=== PATIENT | female | born 1950 | race Caucasian/White ===

== ENCOUNTER 2017-07-19 17:16 | Inpatient (IN) | payer MEDICARE, MEDICAID ==
[~2017-07-19] VITALS: Ht 165.1 cm; Wt 112.3 kg
--- NOTE | 2017-07-19 17:35 | EKG ---
[address] [address] Test Date: 2017-07-19 Test Time: 17:32:12 Pat Name: CASE BOONE Department: Room: Gender: F Help Desk Assistant: : [id number] Requested By: JULIAN ALVAREZ Order Number: [id number] Reading MD: Donell Valencia Measurements Intervals [place] Rate: 73 P: 35 GA: 176 QRS: 10 QRSD: 78 T: 53 QT: 386 QTc: 429 Interpretive Statements SINUS RHYTHM NORMAL ECG RI6.01 No previous ECG available for comparison Electronically Signed On 08-04-2017 13:23:41 CDT by Donell Valencia
[2017-07-19 19:27] LABS: BASO % 1 % (0-3); EOS # 0.1 x10^3/uL (0.0-0.7); EOS % 2 % (0-3); HEMATOCRIT 42.3 % (36.0-47.0); LYMPH # 1.9 x10^3/uL (1.0-4.8); LYMPH % 22 % (24-48); MEAN CORPUSCULAR HEMOGLOBIN 28 pg (25-35); MEAN CORPUSCULAR HGB CONC 33 g/dL (31-37); MEAN CORPUSCULAR VOLUME 86 fL (79-100); MONO # 0.9 x10^3/uL (0.0-1.1); MONO % 10 % (0-9); NEUT # 5.9 x10^3uL (1.8-7.7); NEUT % 67 % (31-73); PLATELET COUNT 311 x10^3/uL (140-400); RED BLOOD COUNT 4.95 x10^6/uL (3.50-5.40); WHITE BLOOD COUNT 8.9 x10^3/uL (4.0-11.0)
[2017-07-19 19:33] LABS: ALBUMIN 3.5 g/dL (3.4-5.0); ALBUMIN/GLOBULIN RATIO 0.8 (1.0-1.7); CALCIUM 9.2 mg/dL (8.5-10.1); CREATININE 0.9 mg/dL (0.6-1.0); GFR 62.6; MAGNESIUM 2.1 mg/dL (1.8-2.4); POTASSIUM 4.6 mmol/L (3.5-5.1); TOTAL BILIRUBIN 0.2 mg/dL (0.2-1.0); TOTAL PROTEIN 7.9 g/dL (6.4-8.2)
[2017-07-19 20:44] LABS: BACTERIA,URINE 0 /HPF (0-FEW); BILIRUBIN,URINE NEG (NEG); CLARITY,URINE CLEAR; COLOR,URINE YELLOW; GLUCOSE,URINE NEG (NEG); NITRITE,URINE NEG (NEG); RBC,URINE 0 /HPF (0-2); SQUAMOUS EPITHELIAL CELL,UR MOD /LPF; UROBILINOGEN,URINE 0.2 mg/dL (0.2 mg/dL)
[2017-07-19 20:45] LABS: HYALINE CASTS, URINE OCC /HPF
[2017-07-19] MEDS ORDERED: LORazepam 2 MG/ML VIAL IV ONE (21:00)
[2017-07-19] MEDS ORDERED: LORazepam 1 MG TABLET PO ONE (21:00)
[2017-07-19] MEDS ORDERED: ALPR0.254 PO (21:04)
[2017-07-19] MEDS ORDERED: DONE10TA7 PO (21:04)
[2017-07-19] MEDS ORDERED: MEMA28CA PO (21:04)
[2017-07-19] MEDS ORDERED: LORazepam 1 MG TABLET ONE (21:04)
[2017-07-19] MEDS ORDERED: METF500T4 PO (21:04)
[2017-07-19] MEDS ORDERED: MAGN400O7 PO (21:04)
[2017-07-19] MEDS ORDERED: FURO20TA3 PO (21:04)
[2017-07-19] MEDS ORDERED: GLIP5TAB10 PO (21:04)
[2017-07-19] MEDS ORDERED: CITA20TA5 PO (21:04)
[2017-07-19] MEDS ORDERED: AMLO10TA2 PO (21:04)
[2017-07-19] MEDS ORDERED: PROP15DR40 OS (21:04)
[2017-07-19] MEDS ORDERED: DORZ10DR21 OU (21:04)
[2017-07-19] MEDS ORDERED: BISA10SU2 RC (21:04)
[2017-07-19] MEDS ORDERED: DEXT237L PO (21:04)
[2017-07-19] MEDS ORDERED: QUET25TA5 PO (21:04)
[2017-07-19] MEDS ORDERED: INSU100I27 SQ (21:04)
[2017-07-19] MEDS ORDERED: MIRT15TA3 PO ×2 (21:04)
[2017-07-19] MEDS ORDERED: PRED5DRO16 OD (21:04)
[2017-07-19] MEDS ORDERED: HYDR-2758 PO ×2 (21:04)
[2017-07-19] MEDS ORDERED: CLON-276 PO (21:04)
[2017-07-19] MEDS ORDERED: DOCU100C28 PO (21:04)
[2017-07-19] MEDS ORDERED: BUSP10TA PO (21:04)
[2017-07-19] MEDS ORDERED: SIMV10TA3 PO (21:04)
[2017-07-19] MEDS ORDERED: ASPI-612 PO (21:04)
[2017-07-19] MEDS ORDERED: LISI40TA PO (21:04)
[2017-07-19] MEDS ORDERED: MAGNESIUM HYDROXIDE 2,400 MG/30 ML ORAL.SUSP. PO PRN (21:45)
[2017-07-19] MEDS ORDERED: METHYL SALICYLATE/MENTHOL TOPICAL OINTMENT 29GM TUBE. TP PRN (21:45)
[2017-07-19] MEDS ORDERED: MAG HYDROX/AL HYDROX/SIMETH 30 ML ORAL.SUSP PO PRN (21:45)
[2017-07-19] MEDS ORDERED: ALPRAZolam 0.25 MG TABLET PO PRN (22:30)
[2017-07-19 23:00] VITALS: BP 183/101
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
[2017-07-20 05:27] VITALS: BP 152/92
[2017-07-20] MEDS ORDERED: DEXTROMETHORPHAN PO PRN (07:15)
[2017-07-20] MEDS ORDERED: MAGNESIUM HYDROXIDE 2,400 MG/30 ML ORAL.SUSP. PO PRN ×2 (07:15→17:15)
[2017-07-20] MEDS ORDERED: DOXYLAMINE PO PRN (07:15)
[2017-07-20] MEDS ORDERED: [UNRECOGNIZED DRUG - OTHER] PO PRN (07:15)
[2017-07-20] MEDS ORDERED: DOCUSATE SODIUM 100 MG CAPSULE PO PRN (07:15)
[2017-07-20] MEDS ORDERED: BISACODYL 10 MG SUPP.RECT RC PRN (07:15)
[2017-07-20] MEDS: INSULIN ASPART 300 UNITS/3 ML INSULN.PEN SQ SCH ×3 (07:30→17:20)
[2017-07-20] MEDS ORDERED: DEXTROSE 50% 25 GM / 50ML DISP.SYRIN. IV PRN (07:30)
[2017-07-20] MEDS: metFORMIN 500 MG TABLET PO SCH ×2 (08:46→17:32)
[2017-07-20] MEDS: busPIRone 10 MG TABLET. PO SCH ×2 (08:46→19:39)
[2017-07-20] MEDS: cloNIDine HCL 0.2 MG TABLET PO SCH ×2 (08:47→19:39)
[2017-07-20] MEDS: LISINOPRIL 20 MG TABLET PO SCH (08:47)
[2017-07-20] MEDS: ASPIRIN ENTERIC COATED 81 MG TABLET.DR. PO SCH (08:47)
[2017-07-20] MEDS: MEMANTINE 10 MG TABLET. PO SCH ×2 (08:47→19:39)
[2017-07-20] MEDS: DONEPEZIL HCL 10 MG TABLET PO SCH (08:47)
[2017-07-20] MEDS: glipiZIDE 5 MG TABLET PO SCH ×2 (08:47→19:39)
[2017-07-20] MEDS: CITALOPRAM 20 MG TABLET. PO SCH (08:47)
[2017-07-20] MEDS: FUROSEMIDE 20 MG TABLET PO SCH (08:48)
[2017-07-20] MEDS: prednisoLONE ACETATE 1% OPHTH SUSPENSION 5ML BOTTLE. OD SCH (08:48)
[2017-07-20] MEDS: amLODIPine BESYLATE 10 MG TABLET PO SCH (08:48)
[2017-07-20] MEDS: DORZOLAMIDE/TIMOLOL 2%/0.5% OPHTH SOLUTION 10ML BOTTLE. OU SCH ×2 (08:48→19:40)
[2017-07-20 14:21] LABS: THYROID STIM HORMONE (TSH) 0.778 uIU/mL (0.358-3.740)
[2017-07-20 15:27] VITALS: BP 143/75
[2017-07-20] MEDS ORDERED: MAG HYDROX/AL HYDROX/SIMETH 30 ML ORAL.SUSP PO PRN (17:15)
[2017-07-20] MEDS ORDERED: METHYL SALICYLATE/MENTHOL TOPICAL OINTMENT 29GM TUBE. TP PRN (17:15)
[2017-07-20] MEDS ORDERED: ACETAMINOPHEN 325 MG TABLET PO PRN (17:15)
[2017-07-20 18:07] LABS: HEMOGLOBIN A1C 6.1 % (4.8-5.6)
[2017-07-20] MEDS: MIRTAZAPINE 15 MG TABLET PO SCH (19:39)
--- NOTE | 2017-07-20 19:56 | PDOC ---
Exam Note: Barney Note: Please also refer to the separate dictated note~for this date of service dictated separately.~Patient seen individually. Discussed the patient with Nursing staff reviewed the chart.~Reviewed interim history and current functioning. Reviewed vital signs,~Labs/ Radiology~and current medications noted below. Continue current treatment with the changes noted in the dictated addendum note Assessment: Vital Signs: Vital Signs Date Time Temp Pulse Resp B/P (MAP) Pulse Ox O2 Delivery O2 Flow Rate FiO2 07/20/17 19:39 80 143/75 07/20/17 15:27 98.7 16 97 Room Air Labs: Laboratory Tests Test 07/20/17 07:46 07/20/17 11:35 07/20/17 16:20 07/20/17 19:25 Glucose (Fingerstick) 143 mg/dL (70-99) H 115 mg/dL (70-99) H 126 mg/dL (70-99) H 221 mg/dL (70-99) H Current Medications: Meds: Current Medications Lorazepam (Ativan) 0.5 mg 1X ONCE IV ; Start 07/19/17 at 21:00; Stop 07/19/17 at 21:00; Status DC Lorazepam (Ativan) 1 mg 1X ONCE PO Last administered on 07/19/17at 21:06; Start 07/19/17 at 21:00; Stop 07/19/17 at 21:04; Status DC Multi-Ingredient Ointment (Analgesic [place]) 1 geraldine PRN QID PRN TP MUSCLE PAIN; Start 07/19/17 at 21:45 Al Hydroxide/Mg Hydroxide (Mylanta Plus Xs) 15 ml PRN AFTMEALHC PRN PO DYSPEPSIA; Start 07/19/17 at 21:45 Magnesium Hydroxide (Milk Of Magnesia) 2,400 mg PRN QHS PRN PO CONSTIPATION; Start 07/19/17 at 21:45 Olanzapine (ZyPREXA ZYDIS) 2.5 mg PRN Q2HR PRN PO PSYCHOSIS; Start 07/19/17 at 22:00 Alprazolam (Xanax) 0.25 mg PRN BID PRN PO ANXIETY / AGITATION; Start 07/19/17 at 22:30 Buspirone HCl (Buspar) 10 mg BID PO Last administered on 07/20/17at 19:39; Start 07/20/17 at 09:00 Citalopram Hydrobromide (CeleXA) 20 mg DAILY PO Last administered on 07/20/17at 08:47; Start 07/20/17 at 09:00 Donepezil HCl (Aricept) 10 mg DAILY PO Last administered on 07/20/17at 08:47; Start 07/20/17 at 09:00 Mirtazapine (Remeron) 15 mg QHS PO Last administered on 07/20/17 19:39; Start 07/20/17 at 21:00 Memantine (Namenda) 10 mg BID PO Last administered on 07/20/17 19:39; Start 07/20/17 at 09:00 Amlodipine Besylate (Norvasc) 10 mg DAILY PO Last administered on 07/20/17 08: 48; Start 07/20/17 at 09:00 Aspirin (Aspirin Enteric Coated) 81 mg DAILY PO Last administered on 07/20/17 08:47; Start 07/20/17 at 09:00 Bisacodyl (Dulcolax Supp) 10 mg PRN ALT PRN RC CONSTIPATION; Start 07/20/17 at 07:15 Clonidine HCl (Catapres) 0.2 mg BID PO Last administered on 07/20/17 19:39; Start 07/20/17 at 09:00 Docusate Sodium (Colace) 100 mg PRN DAILY PRN PO CONSTIPATION; Start 07/20/17 at 07:15 Dorzolamide/ Timolol (Cosopt) 1 drop BID OU Last administered on 07/20/17 19:40 ; Start 07/20/17 at 09:00 Furosemide (Lasix) 20 mg DAILY PO Last administered on 07/20/17at 08:48; Start at 09:00 Glipizide (Glucotrol) 5 mg BID PO Last administered on 07/20/17 19:39; Start at 09:00 Acetaminophen/ Hydrocodone Bitart (Lortab 5/325) 1 tab PRN BID PRN PO PAIN; Start 07/20/17 at 07:15 Insulin Detemir (Levemir) 10 units HS SQ ; Start 07/20/17 at 21:00 Magnesium Hydroxide (Milk Of Magnesia) 400 mg PRN DAILY PRN PO CONSTIPATION; Start 07/20/17 at 07:15 Metformin HCl (Glucophage) 500 mg BIDWMEALS PO Last administered on 07/20/17at 17 :32; Start 07/20/17 at 08:00 Prednisolone Acetate (Pred Forte) 1 drop DAILY OD Last administered on at 08:48; Start 07/20/17 at 09:00 Simvastatin (Zocor) 10 mg QHS PO Last administered on 07/20/17at 19:38; Start 07/20/17 at 21:00 Non-Formulary Medication 10 ml PRN Q6HRS PRN PO COUGH; Start 07/20/17 at 07:15; Stop 07/20/17 at 08:02; Status DC Lisinopril (Prinivil) 40 mg DAILY PO Last administered on 07/20/17at 08:47; Start 07/20/17 at 09:00 Insulin Aspart (NovoLOG) 0-5 UNITS TIDBFRMEAL SQ ; Start 07/20/17 at 07:30 Dextrose 12.5 gm PRN Q15MIN PRN IV SEE COMMENTS; Start 07/20/17 at 07:30 Lorazepam (Ativan) 1 mg STK-MED ONCE .ROUTE ; Start 07/19/17 at 21:04; Stop 07/20 at 08:44; Status DC Acetaminophen (Tylenol) 650 mg PRN Q6HRS PRN PO PAIN / TEMP; Start 07/20/17 at 17:15; Stop 07/20/17 at 17:15; Status DC Multi-Ingredient Ointment (Analgesic [place]) 1 geraldine PRN QID PRN TP MUSCLE PAIN; Start 07/20/17 at 17:15; Stop 07/20/17 at 17:15; Status DC Al Hydroxide/Mg Hydroxide (Mylanta Plus Xs) 15 ml PRN AFTMEALHC PRN PO DYSPEPSIA; Start 07/20/17 at 17:15; Stop 07/20/17 at 17:15; Status DC Magnesium Hydroxide (Milk Of Magnesia) 2,400 mg PRN QHS PRN PO CONSTIPATION; Start 07/20/17 at 17:15; Stop 07/20/17 at 17:15; Status DC Trazodone HCl (Desyrel) 50 mg QHS PO Last administered on 07/20/17at 19:38; Start 07/20/17 at 21:00 Trazodone HCl (Desyrel) 50 mg PRN QHS PRN PO INSOMNIA; Start 07/20/17 at 21:00 Vitamin D (Vitamin D3) 50,000 unit WEEKLY PO ; Start 07/20/17 at 20:00 Atorvastatin Calcium (Lipitor) 20 mg QHS PO ; Start 07/20/17 at 21:00; Stop at 21:00; Status DC Active Scripts Active Reported Seroquel (Quetiapine Fumarate) 25 Mg Tablet 12.5 Mg PO DAILY Robitussin Nighttime Cough Dm (Dextromethorphan Hb/Doxylamine) 237 Ml Liquid 10 Ml PO PRN Q6HRS PRN Levemir Flextouch (Insulin Detemir) 100 Unit/1 Ml Insuln.pen 10 Unit SQ HS Cosopt Eye Drops (Dorzolamide Hcl/Timolol Maleat) 10 Ml Drops 1 Ml OU BID Prednisolone Acetate 5 Ml Drops.susp 1 Ml OD DAILY Alprazolam 0.25 Mg Tablet 0.25 Mg PO BID PRN Systane 0.3-0.4% Eye Drops (Propylene Glycol/Peg 400) 15 Ml Drops 15 Ml OS PRN Hydrocodone-Apap 5-325 (Hydrocodone Bit/Acetaminophen) 1 Each Tablet 2 Tab PO PRN Q6HRS PRN Docusate Sodium 100 Mg Capsule 100 Mg PO PRN DAILY PRN Hydrocodone-Apap 5-325 (Hydrocodone Bit/Acetaminophen) 1 Each Tablet 1 Tab PO BID PRN Milk Of Magnesia (Magnesium Hydroxide) 400 Mg/5 Ml Oral.susp 400 Mg PO PRN DAILY PRN Bisacodyl 10 Mg Supp.rect 10 Mg RC PRN ALT PRN Simvastatin 10 Mg Tablet 10 Mg PO DAILY Namenda Xr (Memantine Hcl) 28 Mg Cap.spr.24 28 Mg PO DAILY Mirtazapine 15 Mg Tablet 7.5 Mg PO Mirtazapine 15 Mg Tablet 1 Tab PO QHS Metformin Hcl 500 Mg Tablet 500 Mg PO BIDWMEALS Lisinopril 40 Mg Tablet 40 Mg PO DAILY Glipizide 5 Mg Tablet 5 Mg PO BID Furosemide 20 Mg Tablet 20 Mg PO DAILY Donepezil Hcl 10 Mg Tablet 10 Mg PO DAILY Clonidine Hcl 0.2 Mg Tablet 0.2 Mg PO BID Citalopram Hbr (Citalopram Hydrobromide) 20 Mg Tablet 20 Mg PO DAILY Buspirone Hcl 10 Mg Tablet 10 Mg PO BID Aspirin Ec (Aspirin) 81 Mg Tablet. 81 Mg PO DAILY Amlodipine Besylate 10 Mg Tablet 10 Mg PO DAILY I have reviewed the current psychotropics carefully including drug interactions. Risk benefit ratio favors no change other than as noted in my dictated progress note. Diagnosis: Problems: (1) MDD (major depressive disorder) (2) Dementia with behavioral disturbance HECTOR PLEITEZ MD Jul 20, 2017 19:56
[2017-07-20] MEDS: CHOLECALCIFEROL (VITAMIN D3) 50,000 UNIT CAPSULE PO SCH (20:22)
[2017-07-20] MEDS: INSULIN DETEMIR 300 UNITS/3 ML INSULN.PEN. SQ SCH (20:25)
[2017-07-20] MEDS ORDERED: ATORVASTATIN CALCIUM 20 MG TABLET PO SCH (21:00)
[2017-07-20] MEDS ORDERED: traZODone 50 MG TABLET. PO PRN (21:00)
[2017-07-20] MEDS ORDERED: SIMVASTATIN 10 MG TABLET PO SCH (21:00)
[2017-07-20] MEDS ORDERED: traZODone 50 MG TABLET. PO SCH (21:00)
[2017-07-20 21:08] LABS: T3 TOTAL 134 ng/dL (71-180); THYROXINE 7.8 ug/dL (4.5-12.0)
[2017-07-21 06:35] VITALS: BP 152/80
[2017-07-21] MEDS: INSULIN ASPART 300 UNITS/3 ML INSULN.PEN SQ SCH ×3 (07:52→17:28)
[2017-07-21] MEDS: ASPIRIN ENTERIC COATED 81 MG TABLET.DR. PO SCH (07:53)
[2017-07-21] MEDS: FUROSEMIDE 20 MG TABLET PO SCH (07:54)
[2017-07-21] MEDS: MEMANTINE 10 MG TABLET. PO SCH ×2 (07:54→19:56)
[2017-07-21] MEDS: DONEPEZIL HCL 10 MG TABLET PO SCH (07:54)
[2017-07-21] MEDS: metFORMIN 500 MG TABLET PO SCH ×2 (07:54→17:26)
[2017-07-21] MEDS: amLODIPine BESYLATE 10 MG TABLET PO SCH (07:54)
[2017-07-21] MEDS: glipiZIDE 5 MG TABLET PO SCH ×2 (07:54→19:54)
[2017-07-21] MEDS: cloNIDine HCL 0.2 MG TABLET PO SCH ×2 (07:54→19:56)
[2017-07-21] MEDS: CITALOPRAM 20 MG TABLET. PO SCH (07:55)
[2017-07-21] MEDS: prednisoLONE ACETATE 1% OPHTH SUSPENSION 5ML BOTTLE. OD SCH (07:55)
[2017-07-21] MEDS: busPIRone 10 MG TABLET. PO SCH ×2 (07:55→19:54)
[2017-07-21] MEDS: LISINOPRIL 20 MG TABLET PO SCH (07:55)
[2017-07-21] MEDS: DORZOLAMIDE/TIMOLOL 2%/0.5% OPHTH SOLUTION 10ML BOTTLE. OU SCH ×2 (07:55→20:02)
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
[2017-07-21 15:55] VITALS: BP 161/89
[2017-07-21] MEDS: MIRTAZAPINE 15 MG TABLET PO SCH (19:55)
[2017-07-21] MEDS: ATORVASTATIN CALCIUM 10 MG TABLET. PO SCH (19:57)
[2017-07-21] MEDS: traZODone 100 MG TABLET. PO SCH (19:58)
[2017-07-21] MEDS: INSULIN DETEMIR 300 UNITS/3 ML INSULN.PEN. SQ SCH (20:00)
[2017-07-21] MEDS ORDERED: MIRTAZAPINE 15 MG TABLET PO SCH (21:00)
--- NOTE | 2017-07-21 22:15 | PDOC ---
Exam Note: Barney Note: Please also refer to the separate dictated note~for this date of service dictated separately.~Patient seen individually. Discussed the patient with Nursing staff reviewed the chart.~Reviewed interim history and current functioning. Reviewed vital signs,~Labs/ Radiology~and current medications noted below. Continue current treatment with the changes noted in the dictated addendum note Assessment: Vital Signs: Vital Signs Date Time Temp Pulse Resp B/P (MAP) Pulse Ox O2 Delivery O2 Flow Rate FiO2 07/21/17 19:56 77 161/89 07/21/17 15:55 98.5 18 Room Air 95.0 07/21/17 06:35 92 I&O Intake and Output 07/21/17 07:00 Intake Total 480 ml Balance 480 ml Intake Oral 480 ml Labs: Laboratory Tests Test 07/21/17 07:31 07/21/17 11:26 07/21/17 16:25 07/21/17 19:07 Glucose (Fingerstick) 129 mg/dL (70-99) H 144 mg/dL (70-99) H 195 mg/dL (70-99) H 176 mg/dL (70-99) H Current Medications: Meds: Current Medications Lorazepam (Ativan) 0.5 mg 1X ONCE IV ; Start 07/19/17 at 21:00; Stop 07/19/17 at 21:00; Status DC Lorazepam (Ativan) 1 mg 1X ONCE PO Last administered on 07/19/17at 21:06; Start 07/19/17 at 21:00; Stop 07/19/17 at 21:04; Status DC Multi-Ingredient Ointment (Analgesic [place]) 1 geraldine PRN QID PRN TP MUSCLE PAIN; Start 07/19/17 at 21:45 Al Hydroxide/Mg Hydroxide (Mylanta Plus Xs) 15 ml PRN AFTMEALHC PRN PO DYSPEPSIA; Start 07/19/17 at 21:45 Magnesium Hydroxide (Milk Of Magnesia) 2,400 mg PRN QHS PRN PO CONSTIPATION; Start 07/19/17 at 21:45 Olanzapine (ZyPREXA ZYDIS) 2.5 mg PRN Q2HR PRN PO PSYCHOSIS; Start 07/19/17 at 22:00 Alprazolam (Xanax) 0.25 mg PRN BID PRN PO ANXIETY / AGITATION; Start 07/19/17 at 22:30 Buspirone HCl (Buspar) 10 mg BID PO Last administered on 07/21/17 19:54; Start 07/20/17 at 09:00 Citalopram Hydrobromide (CeleXA) 20 mg DAILY PO Last administered on 07/21/17 07:55; Start 07/20/17 at 09:00 Donepezil HCl (Aricept) 10 mg DAILY PO Last administered on 07/21/17 07:54; Start 07/20/17 at 09:00 Mirtazapine (Remeron) 15 mg QHS PO Last administered on 07/21/17 19:55; Start 07/20/17 at 21:00 Memantine (Namenda) 10 mg BID PO Last administered on 07/21/17 19:56; Start 07/20/17 at 09:00 Amlodipine Besylate (Norvasc) 10 mg DAILY PO Last administered on 07/21/17 07: 54; Start 07/20/17 at 09:00 Aspirin (Aspirin Enteric Coated) 81 mg DAILY PO Last administered on 07/21/17 07:53; Start 07/20/17 at 09:00 Bisacodyl (Dulcolax Supp) 10 mg PRN ALT PRN RC CONSTIPATION; Start 07/20/17 at 07:15 Clonidine HCl (Catapres) 0.2 mg BID PO Last administered on 07/21/17 19:56; Start 07/20/17 at 09:00 Docusate Sodium (Colace) 100 mg PRN DAILY PRN PO CONSTIPATION; Start 07/20/17 at 07:15 Dorzolamide/ Timolol (Cosopt) 1 drop BID OU Last administered on 07/21/17at 20:02 ; Start 07/20/17 at 09:00 Furosemide (Lasix) 20 mg DAILY PO Last administered on 07/21/17 07:54; Start at 09:00 Glipizide (Glucotrol) 5 mg BID PO Last administered on 07/21/17 19:54; Start at 09:00 Acetaminophen/ Hydrocodone Bitart (Lortab 5/325) 1 tab PRN BID PRN PO PAIN; Start 07/20/17 at 07:15 Insulin Detemir (Levemir) 10 units HS SQ Last administered on 07/21/17at 20:00; Start 07/20/17 at 21:00 Magnesium Hydroxide (Milk Of Magnesia) 400 mg PRN DAILY PRN PO CONSTIPATION; Start 07/20/17 at 07:15; Stop 07/21/17 at 02:10; Status DC Metformin HCl (Glucophage) 500 mg BIDWMEALS PO Last administered on 07/21/17at 17 :26; Start 07/20/17 at 08:00 Prednisolone Acetate (Pred Forte) 1 drop DAILY OD Last administered on at 07:55; Start 07/20/17 at 09:00 Simvastatin (Zocor) 10 mg QHS PO Last administered on 07/20/17at 19:38; Start 07/20/17 at 21:00; Stop 07/21/17 at 17:31; Status DC Non-Formulary Medication 10 ml PRN Q6HRS PRN PO COUGH; Start 07/20/17 at 07:15; Stop 07/20/17 at 08:02; Status DC Lisinopril (Prinivil) 40 mg DAILY PO Last administered on 07/21/17at 07:55; Start 07/20/17 at 09:00 Insulin Aspart (NovoLOG) 0-5 UNITS TIDBFRMEAL SQ Last administered on 07/21/17at 17:28; Start 07/20/17 at 07:30 Dextrose 12.5 gm PRN Q15MIN PRN IV SEE COMMENTS; Start 07/20/17 at 07:30 Lorazepam (Ativan) 1 mg STK-MED ONCE .ROUTE ; Start 07/19/17 at 21:04; Stop 07/20 at 08:44; Status DC Acetaminophen (Tylenol) 650 mg PRN Q6HRS PRN PO PAIN / TEMP; Start 07/20/17 at 17:15; Stop 07/20/17 at 17:15; Status DC Multi-Ingredient Ointment (Analgesic [place]) 1 geraldine PRN QID PRN TP MUSCLE PAIN; Start 07/20/17 at 17:15; Stop 07/20/17 at 17:15; Status DC Al Hydroxide/Mg Hydroxide (Mylanta Plus Xs) 15 ml PRN AFTMEALHC PRN PO DYSPEPSIA; Start 07/20/17 at 17:15; Stop 07/20/17 at 17:15; Status DC Magnesium Hydroxide (Milk Of Magnesia) 2,400 mg PRN QHS PRN PO CONSTIPATION; Start 07/20/17 at 17:15; Stop 07/20/17 at 17:15; Status DC Trazodone HCl (Desyrel) 50 mg QHS PO Last administered on 07/20/17at 19:38; Start 07/20/17 at 21:00; Stop 07/21/17 at 18:48; Status DC Trazodone HCl (Desyrel) 50 mg PRN QHS PRN PO INSOMNIA Last administered on at 00:47; Start 07/20/17 at 21:00; Stop 07/21/17 at 18:48; Status DC Vitamin D (Vitamin D3) 50,000 unit WEEKLY PO Last administered on 07/20/17at 20: 22; Start 07/20/17 at 20:00 Atorvastatin Calcium (Lipitor) 20 mg QHS PO ; Start 07/20/17 at 21:00; Stop at 21:00; Status DC Atorvastatin Calcium (Lipitor) 10 mg QHS PO Last administered on 07/21/17at 19:57 ; Start 07/21/17 at 21:00 Trazodone HCl (Desyrel) 100 mg PRN QHS PRN PO INSOMNIA; Start 07/21/17 at 19:00 Trazodone HCl (Desyrel) 100 mg QHS PO Last administered on 07/21/17at 19:58; Start 07/21/17 at 21:00 Mirtazapine (Remeron) 15 mg QHS PO ; Start 07/21/17 at 21:00; Stop 07/21/17 at 21: 00; Status DC Active Scripts Active Reported Seroquel (Quetiapine Fumarate) 25 Mg Tablet 12.5 Mg PO DAILY Robitussin Nighttime Cough Dm (Dextromethorphan Hb/Doxylamine) 237 Ml Liquid 10 Ml PO PRN Q6HRS PRN Levemir Flextouch (Insulin Detemir) 100 Unit/1 Ml Insuln.pen 10 Unit SQ HS Cosopt Eye Drops (Dorzolamide Hcl/Timolol Maleat) 10 Ml Drops 1 Ml OU BID Prednisolone Acetate 5 Ml Drops.susp 1 Ml OD DAILY Alprazolam 0.25 Mg Tablet 0.25 Mg PO BID PRN Systane 0.3-0.4% Eye Drops (Propylene Glycol/Peg 400) 15 Ml Drops 15 Ml OS PRN Hydrocodone-Apap 5-325 (Hydrocodone Bit/Acetaminophen) 1 Each Tablet 2 Tab PO PRN Q6HRS PRN Docusate Sodium 100 Mg Capsule 100 Mg PO PRN DAILY PRN Hydrocodone-Apap 5-325 (Hydrocodone Bit/Acetaminophen) 1 Each Tablet 1 Tab PO BID PRN Milk Of Magnesia (Magnesium Hydroxide) 400 Mg/5 Ml Oral.susp 2,400 Mg PO PRN DAILY PRN Bisacodyl 10 Mg Supp.rect 10 Mg RC PRN ALT PRN Simvastatin 10 Mg Tablet 10 Mg PO DAILY Namenda Xr (Memantine Hcl) 28 Mg Cap.spr.24 28 Mg PO DAILY Mirtazapine 15 Mg Tablet 7.5 Mg PO Mirtazapine 15 Mg Tablet 1 Tab PO QHS Metformin Hcl 500 Mg Tablet 500 Mg PO BIDWMEALS Lisinopril 40 Mg Tablet 40 Mg PO DAILY Glipizide 5 Mg Tablet 5 Mg PO BID Furosemide 20 Mg Tablet 20 Mg PO DAILY Donepezil Hcl 10 Mg Tablet 10 Mg PO DAILY Clonidine Hcl 0.2 Mg Tablet 0.2 Mg PO BID Citalopram Hbr (Citalopram Hydrobromide) 20 Mg Tablet 20 Mg PO DAILY Buspirone Hcl 10 Mg Tablet 10 Mg PO BID Aspirin Ec (Aspirin) 81 Mg Tablet. 81 Mg PO DAILY Amlodipine Besylate 10 Mg Tablet 10 Mg PO DAILY I have reviewed the current psychotropics carefully including drug interactions. Risk benefit ratio favors no change other than as noted in my dictated progress note. Diagnosis: Problems: (1) MDD (major depressive disorder) (2) Dementia with behavioral disturbance (3) Anxiety disorder (4) Impulse control disorder (5) Psychotic depression (6) Mild cognitive impairment HECTOR PLEITEZ MD Jul 21, 2017 22:15
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
[2017-07-22] MEDS: traZODone 100 MG TABLET. PO PRN (02:00)
[2017-07-22 06:24] VITALS: BP 163/73
[2017-07-22] MEDS: INSULIN ASPART 300 UNITS/3 ML INSULN.PEN SQ SCH ×3 (07:41→17:15)
[2017-07-22] MEDS: metFORMIN 500 MG TABLET PO SCH ×2 (08:03→17:14)
[2017-07-22] MEDS: DONEPEZIL HCL 10 MG TABLET PO SCH (08:04)
[2017-07-22] MEDS: DORZOLAMIDE/TIMOLOL 2%/0.5% OPHTH SOLUTION 10ML BOTTLE. OU SCH ×2 (08:04→19:33)
[2017-07-22] MEDS: ASPIRIN ENTERIC COATED 81 MG TABLET.DR. PO SCH (08:04)
[2017-07-22] MEDS: prednisoLONE ACETATE 1% OPHTH SUSPENSION 5ML BOTTLE. OD SCH (08:04)
[2017-07-22] MEDS: busPIRone 10 MG TABLET. PO SCH ×3 (08:05→21:00)
[2017-07-22] MEDS: cloNIDine HCL 0.2 MG TABLET PO SCH ×3 (08:05→21:00)
[2017-07-22] MEDS: FUROSEMIDE 20 MG TABLET PO SCH (08:06)
[2017-07-22] MEDS: glipiZIDE 5 MG TABLET PO SCH ×3 (08:06→21:00)
[2017-07-22] MEDS: MEMANTINE 10 MG TABLET. PO SCH ×3 (08:06→21:00)
[2017-07-22] MEDS: CITALOPRAM 20 MG TABLET. PO SCH (08:06)
[2017-07-22] MEDS: amLODIPine BESYLATE 10 MG TABLET PO SCH (08:07)
[2017-07-22] MEDS: LISINOPRIL 20 MG TABLET PO SCH (08:08)
[2017-07-22 16:32] VITALS: BP 144/73
[2017-07-22] MEDS: HYDROcodone/APAP 5/325MG 1 TAB TABLET PO PRN (18:40)
[2017-07-22] MEDS: ATORVASTATIN CALCIUM 10 MG TABLET. PO SCH ×2 (19:21→21:00)
[2017-07-22] MEDS: traZODone 100 MG TABLET. PO SCH ×2 (19:22→21:00)
[2017-07-22] MEDS: MIRTAZAPINE 15 MG TABLET PO SCH (19:22)
[2017-07-22] MEDS: INSULIN DETEMIR 300 UNITS/3 ML INSULN.PEN. SQ SCH (19:32)
--- NOTE | 2017-07-22 21:00 | PDOC ---
Exam Note: Barney Note: Please also refer to the separate dictated note~for this date of service dictated separately.~Patient seen individually. Discussed the patient with Nursing staff reviewed the chart.~Reviewed interim history and current functioning. Reviewed vital signs,~Labs/ Radiology~and current medications noted below. Continue current treatment with the changes noted in the dictated addendum note Assessment: Vital Signs: Vital Signs Date Time Temp Pulse Resp B/P (MAP) Pulse Ox O2 Delivery O2 Flow Rate FiO2 07/22/17 19:47 97 07/22/17 19:21 76 144/73 07/22/17 18:40 20 07/22/17 16:32 99.1 Room Air 07/21/17 15:55 95.0 I&O Intake and Output 07/22/17 07:00 Intake Total 1200 ml Balance 1200 ml Intake Oral 1200 ml # Bowel Movements 1 Labs: Laboratory Tests Test 07/22/17 07:22 07/22/17 12:00 07/22/17 17:02 07/22/17 19:07 Glucose (Fingerstick) 97 mg/dL (70-99) 92 mg/dL (70-99) 151 mg/dL (70-99) H 217 mg/dL (70-99) H Current Medications: Meds: Current Medications Lorazepam (Ativan) 0.5 mg 1X ONCE IV ; Start 07/19/17 at 21:00; Stop 07/19/17 at 21:00; Status DC Lorazepam (Ativan) 1 mg 1X ONCE PO Last administered on 07/19/17at 21:06; Start 07/19/17 at 21:00; Stop 07/19/17 at 21:04; Status DC Multi-Ingredient Ointment (Analgesic [place]) 1 geraldine PRN QID PRN TP MUSCLE PAIN; Start 07/19/17 at 21:45 Al Hydroxide/Mg Hydroxide (Mylanta Plus Xs) 15 ml PRN AFTMEALHC PRN PO DYSPEPSIA; Start 07/19/17 at 21:45 Magnesium Hydroxide (Milk Of Magnesia) 2,400 mg PRN QHS PRN PO CONSTIPATION; Start 07/19/17 at 21:45 Olanzapine (ZyPREXA ZYDIS) 2.5 mg PRN Q2HR PRN PO PSYCHOSIS Last administered on 07/22/17at 20:45; Start 07/19/17 at 22:00 Alprazolam (Xanax) 0.25 mg PRN BID PRN PO ANXIETY / AGITATION Last administered on 07/22/17 20:45; Start 07/19/17 at 22:30 Buspirone HCl (Buspar) 10 mg BID PO Last administered on 07/22/17 19:22; Start 07/20/17 at 09:00 Citalopram Hydrobromide (CeleXA) 20 mg DAILY PO Last administered on 07/22/17 08:06; Start 07/20/17 at 09:00 Donepezil HCl (Aricept) 10 mg DAILY PO Last administered on 07/22/17 08:04; Start 07/20/17 at 09:00 Mirtazapine (Remeron) 15 mg QHS PO Last administered on 07/22/17 19:22; Start 07/20/17 at 21:00 Memantine (Namenda) 10 mg BID PO Last administered on 07/22/17 19:22; Start 07/20/17 at 09:00 Amlodipine Besylate (Norvasc) 10 mg DAILY PO Last administered on 07/22/17 08: 07; Start 07/20/17 at 09:00 Aspirin (Aspirin Enteric Coated) 81 mg DAILY PO Last administered on 07/22/17 08:04; Start 07/20/17 at 09:00 Bisacodyl (Dulcolax Supp) 10 mg PRN ALT PRN RC CONSTIPATION; Start 07/20/17 at 07:15 Clonidine HCl (Catapres) 0.2 mg BID PO Last administered on 07/22/17 19:21; Start 07/20/17 at 09:00 Docusate Sodium (Colace) 100 mg PRN DAILY PRN PO CONSTIPATION; Start 07/20/17 at 07:15 Dorzolamide/ Timolol (Cosopt) 1 drop BID OU Last administered on 07/22/17 19:33 ; Start 07/20/17 at 09:00 Furosemide (Lasix) 20 mg DAILY PO Last administered on 07/22/17 08:06; Start at 09:00 Glipizide (Glucotrol) 5 mg BID PO Last administered on 07/22/17 19:21; Start at 09:00 Acetaminophen/ Hydrocodone Bitart (Lortab 5/325) 1 tab PRN BID PRN PO PAIN Last administered on 07/22/17 18:40; Start 07/20/17 at 07:15 Insulin Detemir (Levemir) 10 units HS SQ Last administered on 07/22/17at 19:32; Start 07/20/17 at 21:00 Magnesium Hydroxide (Milk Of Magnesia) 400 mg PRN DAILY PRN PO CONSTIPATION; Start 07/20/17 at 07:15; Stop 07/21/17 at 02:10; Status DC Metformin HCl (Glucophage) 500 mg BIDWMEALS PO Last administered on 07/22/17 17 :14; Start 07/20/17 at 08:00 Prednisolone Acetate (Pred Forte) 1 drop DAILY OD Last administered on at 08:04; Start 07/20/17 at 09:00 Simvastatin (Zocor) 10 mg QHS PO Last administered on 07/20/17at 19:38; Start 07/20/17 at 21:00; Stop 07/21/17 at 17:31; Status DC Non-Formulary Medication 10 ml PRN Q6HRS PRN PO COUGH; Start 07/20/17 at 07:15; Stop 07/20/17 at 08:02; Status DC Lisinopril (Prinivil) 40 mg DAILY PO Last administered on 07/22/17at 08:08; Start 07/20/17 at 09:00 Insulin Aspart (NovoLOG) 0-5 UNITS TIDBFRMEAL SQ Last administered on 07/22/17at 17:15; Start 07/20/17 at 07:30 Dextrose 12.5 gm PRN Q15MIN PRN IV SEE COMMENTS; Start 07/20/17 at 07:30 Lorazepam (Ativan) 1 mg STK-MED ONCE .ROUTE ; Start 07/19/17 at 21:04; Stop 07/20 at 08:44; Status DC Acetaminophen (Tylenol) 650 mg PRN Q6HRS PRN PO PAIN / TEMP; Start 07/20/17 at 17:15; Stop 07/20/17 at 17:15; Status DC Multi-Ingredient Ointment (Analgesic [place]) 1 geraldine PRN QID PRN TP MUSCLE PAIN; Start 07/20/17 at 17:15; Stop 07/20/17 at 17:15; Status DC Al Hydroxide/Mg Hydroxide (Mylanta Plus Xs) 15 ml PRN AFTMEALHC PRN PO DYSPEPSIA; Start 07/20/17 at 17:15; Stop 07/20/17 at 17:15; Status DC Magnesium Hydroxide (Milk Of Magnesia) 2,400 mg PRN QHS PRN PO CONSTIPATION; Start 07/20/17 at 17:15; Stop 07/20/17 at 17:15; Status DC Trazodone HCl (Desyrel) 50 mg QHS PO Last administered on 07/20/17at 19:38; Start 07/20/17 at 21:00; Stop 07/21/17 at 18:48; Status DC Trazodone HCl (Desyrel) 50 mg PRN QHS PRN PO INSOMNIA Last administered on at 00:47; Start 07/20/17 at 21:00; Stop 07/21/17 at 18:48; Status DC Vitamin D (Vitamin D3) 50,000 unit WEEKLY PO Last administered on 07/20/17at 20: 22; Start 07/20/17 at 20:00 Atorvastatin Calcium (Lipitor) 20 mg QHS PO ; Start 07/20/17 at 21:00; Stop at 21:00; Status DC Atorvastatin Calcium (Lipitor) 10 mg QHS PO Last administered on 07/22/17at 19:21 ; Start 07/21/17 at 21:00 Trazodone HCl (Desyrel) 100 mg PRN QHS PRN PO INSOMNIA Last administered on 07/22at 02:00; Start 07/21/17 at 19:00 Trazodone HCl (Desyrel) 100 mg QHS PO Last administered on 07/22/17at 19:22; Start 07/21/17 at 21:00 Mirtazapine (Remeron) 15 mg QHS PO ; Start 07/21/17 at 21:00; Stop 07/21/17 at 21: 00; Status DC Active Scripts Active Reported Seroquel (Quetiapine Fumarate) 25 Mg Tablet 12.5 Mg PO DAILY Robitussin Nighttime Cough Dm (Dextromethorphan Hb/Doxylamine) 237 Ml Liquid 10 Ml PO PRN Q6HRS PRN Levemir Flextouch (Insulin Detemir) 100 Unit/1 Ml Insuln.pen 10 Unit SQ HS Cosopt Eye Drops (Dorzolamide Hcl/Timolol Maleat) 10 Ml Drops 1 Ml OU BID Prednisolone Acetate 5 Ml Drops.susp 1 Ml OD DAILY Alprazolam 0.25 Mg Tablet 0.25 Mg PO BID PRN Systane 0.3-0.4% Eye Drops (Propylene Glycol/Peg 400) 15 Ml Drops 15 Ml OS PRN Hydrocodone-Apap 5-325 (Hydrocodone Bit/Acetaminophen) 1 Each Tablet 2 Tab PO PRN Q6HRS PRN Docusate Sodium 100 Mg Capsule 100 Mg PO PRN DAILY PRN Hydrocodone-Apap 5-325 (Hydrocodone Bit/Acetaminophen) 1 Each Tablet 1 Tab PO BID PRN Milk Of Magnesia (Magnesium Hydroxide) 400 Mg/5 Ml Oral.susp 2,400 Mg PO PRN DAILY PRN Bisacodyl 10 Mg Supp.rect 10 Mg RC PRN ALT PRN Simvastatin 10 Mg Tablet 10 Mg PO DAILY Namenda Xr (Memantine Hcl) 28 Mg Cap.spr.24 28 Mg PO DAILY Mirtazapine 15 Mg Tablet 7.5 Mg PO Mirtazapine 15 Mg Tablet 1 Tab PO QHS Metformin Hcl 500 Mg Tablet 500 Mg PO BIDWMEALS Lisinopril 40 Mg Tablet 40 Mg PO DAILY Glipizide 5 Mg Tablet 5 Mg PO BID Furosemide 20 Mg Tablet 20 Mg PO DAILY Donepezil Hcl 10 Mg Tablet 10 Mg PO DAILY Clonidine Hcl 0.2 Mg Tablet 0.2 Mg PO BID Citalopram Hbr (Citalopram Hydrobromide) 20 Mg Tablet 20 Mg PO DAILY Buspirone Hcl 10 Mg Tablet 10 Mg PO BID Aspirin Ec (Aspirin) 81 Mg Tablet.dr 81 Mg PO DAILY Amlodipine Besylate 10 Mg Tablet 10 Mg PO DAILY I have reviewed the current psychotropics carefully including drug interactions. Risk benefit ratio favors no change other than as noted in my dictated progress note. Diagnosis: Problems: (1) MDD (major depressive disorder) (2) Dementia with behavioral disturbance (3) Anxiety disorder (4) Impulse control disorder (5) Psychotic depression (6) Mild cognitive impairment HECTOR PLEITEZ MD Jul 22, 2017 21:00
[2017-07-22] MEDS: AMITRIPTYLINE HCL 50 MG TABLET PO SCH (22:06)
[2017-07-23] MEDS: traZODone 100 MG TABLET. PO PRN (00:33)
[2017-07-23 06:12] VITALS: BP 156/80
[2017-07-23] MEDS: INSULIN ASPART 300 UNITS/3 ML INSULN.PEN SQ SCH ×3 (07:30→17:38)
[2017-07-23] MEDS: busPIRone 10 MG TABLET. PO SCH ×2 (08:11→19:37)
[2017-07-23] MEDS: ASPIRIN ENTERIC COATED 81 MG TABLET.DR. PO SCH (08:11)
[2017-07-23] MEDS: prednisoLONE ACETATE 1% OPHTH SUSPENSION 5ML BOTTLE. OD SCH (08:11)
[2017-07-23] MEDS: DONEPEZIL HCL 10 MG TABLET PO SCH (08:11)
[2017-07-23] MEDS: DORZOLAMIDE/TIMOLOL 2%/0.5% OPHTH SOLUTION 10ML BOTTLE. OU SCH ×2 (08:11→19:42)
[2017-07-23] MEDS: metFORMIN 500 MG TABLET PO SCH ×2 (08:11→17:38)
[2017-07-23] MEDS: MEMANTINE 10 MG TABLET. PO SCH ×2 (08:15→19:39)
[2017-07-23] MEDS: CITALOPRAM 20 MG TABLET. PO SCH (08:15)
[2017-07-23] MEDS: FUROSEMIDE 20 MG TABLET PO SCH (08:15)
[2017-07-23] MEDS: glipiZIDE 5 MG TABLET PO SCH ×2 (08:15→19:37)
[2017-07-23] MEDS: cloNIDine HCL 0.2 MG TABLET PO SCH ×2 (08:15→19:38)
[2017-07-23] MEDS: amLODIPine BESYLATE 10 MG TABLET PO SCH (08:16)
[2017-07-23] MEDS: LISINOPRIL 20 MG TABLET PO SCH (08:16)
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
--- NOTE | 2017-07-23 14:55 | PN ---
DATE: 07/21/2017 PSYCHIATRIC PROGRESS NOTE This late entry 07/21/2017 covers elements, not covered in my initial note of 07/21/2017. I met with the patient in the evening of 07/21/2017. The patient spends much time in her room, oriented to the year, her date of , slept 3/4 hours previous evening, calm, compliant. Previous evening, she was yelling out in her bed, making loud belching sounds. REVIEW OF SYSTEMS: No CV, , pulmonary, eye, ENT system symptoms on review. I met with her in her room. MENTAL STATUS EXAM: Oriented to herself and situation. Speech coherent, abstraction fair, computation impaired, language function intact. Mood and affect withdrawn. LABORATORY DATA: Reviewed. IMPRESSION: Major depressive disorder with psychotic features, psychotic disorder, unspecified; cognitive disorder, unspecified. PLAN: Increase Remeron to 15 mg at bedtime to help with the insomnia and trazodone to 100 mg at bedtime, may repeat x 1 for insomnia. Continue rest unchanged. If psychotic symptoms are evident, we may consider adjustments in her antipsychotic and consider Risperdal in place of Seroquel. MAN Yanira PLEITEZ MD DR: DINO/demetrio JOB#: [id number] / [id number]
[2017-07-23 16:06] VITALS: BP 137/67
[2017-07-23] MEDS ORDERED: risperiDONE 0.5 MG TABLET. PO ONE (16:30)
[2017-07-23] MEDS: ATORVASTATIN CALCIUM 10 MG TABLET. PO SCH (19:37)
[2017-07-23] MEDS: AMITRIPTYLINE HCL 50 MG TABLET PO SCH (19:38)
[2017-07-23] MEDS: traZODone 100 MG TABLET. PO SCH ×2 (19:38→22:06)
[2017-07-23] MEDS: INSULIN DETEMIR 300 UNITS/3 ML INSULN.PEN. SQ SCH (19:42)
--- NOTE | 2017-07-23 20:02 | PDOC ---
Exam Note: Barney Note: Please also refer to the separate dictated note~for this date of service dictated separately.~Patient seen individually. Discussed the patient with Nursing staff reviewed the chart.~Reviewed interim history and current functioning. Reviewed vital signs,~Labs/ Radiology~and current medications noted below. Continue current treatment with the changes noted in the dictated addendum note Assessment: Vital Signs: Vital Signs Date Time Temp Pulse Resp B/P (MAP) Pulse Ox O2 Delivery O2 Flow Rate FiO2 07/23/17 19:38 94 137/67 07/23/17 16:06 98.4 18 96 07/22/17 16:32 Room Air 07/21/17 15:55 95.0 I&O Intake and Output 07/23/17 07:00 Intake Total 1440 ml Balance 1440 ml Intake Oral 1440 ml Labs: Laboratory Tests Test 07/23/17 08:01 07/23/17 11:46 07/23/17 17:03 07/23/17 19:23 Glucose (Fingerstick) 125 mg/dL (70-99) H 117 mg/dL (70-99) H 155 mg/dL (70-99) H 213 mg/dL (70-99) H Current Medications: Meds: Current Medications Lorazepam (Ativan) 0.5 mg 1X ONCE IV ; Start 07/19/17 at 21:00; Stop 07/19/17 at 21:00; Status DC Lorazepam (Ativan) 1 mg 1X ONCE PO Last administered on 07/19/17at 21:06; Start 07/19/17 at 21:00; Stop 07/19/17 at 21:04; Status DC Multi-Ingredient Ointment (Analgesic [place]) 1 geraldine PRN QID PRN TP MUSCLE PAIN; Start 07/19/17 at 21:45 Al Hydroxide/Mg Hydroxide (Mylanta Plus Xs) 15 ml PRN AFTMEALHC PRN PO DYSPEPSIA; Start 07/19/17 at 21:45 Magnesium Hydroxide (Milk Of Magnesia) 2,400 mg PRN QHS PRN PO CONSTIPATION; Start 07/19/17 at 21:45 Olanzapine (ZyPREXA ZYDIS) 2.5 mg PRN Q2HR PRN PO PSYCHOSIS Last administered on 07/22/17at 20:45; Start 07/19/17 at 22:00; Stop 07/22/17 at 21:34; Status DC Alprazolam (Xanax) 0.25 mg PRN BID PRN PO ANXIETY / AGITATION Last administered on 07/22/17 20:45; Start 07/19/17 at 22:30 Buspirone HCl (Buspar) 10 mg BID PO Last administered on 07/23/17 19:37; Start 07/20/17 at 09:00 Citalopram Hydrobromide (CeleXA) 20 mg DAILY PO Last administered on 07/23/17 08:15; Start 07/20/17 at 09:00 Donepezil HCl (Aricept) 10 mg DAILY PO Last administered on 07/23/17 08:11; Start 07/20/17 at 09:00 Mirtazapine (Remeron) 15 mg QHS PO Last administered on 07/21/17 19:55; Start 07/20/17 at 21:00; Stop 07/22/17 at 21:34; Status DC Memantine (Namenda) 10 mg BID PO Last administered on 07/23/17 19:39; Start 07/20/17 at 09:00 Amlodipine Besylate (Norvasc) 10 mg DAILY PO Last administered on 07/23/17 08: 16; Start 07/20/17 at 09:00 Aspirin (Aspirin Enteric Coated) 81 mg DAILY PO Last administered on 07/23/17 08:11; Start 07/20/17 at 09:00 Bisacodyl (Dulcolax Supp) 10 mg PRN ALT PRN RC CONSTIPATION; Start 07/20/17 at 07:15 Clonidine HCl (Catapres) 0.2 mg BID PO Last administered on 07/23/17 19:38; Start 07/20/17 at 09:00 Docusate Sodium (Colace) 100 mg PRN DAILY PRN PO CONSTIPATION; Start 07/20/17 at 07:15 Dorzolamide/ Timolol (Cosopt) 1 drop BID OU Last administered on 07/23/17 19:42 ; Start 07/20/17 at 09:00 Furosemide (Lasix) 20 mg DAILY PO Last administered on 07/23/17 08:15; Start at 09:00 Glipizide (Glucotrol) 5 mg BID PO Last administered on 07/23/17 19:37; Start at 09:00 Acetaminophen/ Hydrocodone Bitart (Lortab 5/325) 1 tab PRN BID PRN PO PAIN Last administered on 07/22/17 18:40; Start 07/20/17 at 07:15 Insulin Detemir (Levemir) 10 units HS SQ Last administered on 07/23/17 19:42; Start 07/20/17 at 21:00 Magnesium Hydroxide (Milk Of Magnesia) 400 mg PRN DAILY PRN PO CONSTIPATION; Start 07/20/17 at 07:15; Stop 07/21/17 at 02:10; Status DC Metformin HCl (Glucophage) 500 mg BIDWMEALS PO Last administered on 07/23/17 17 :38; Start 07/20/17 at 08:00 Prednisolone Acetate (Pred Forte) 1 drop DAILY OD Last administered on 08:11; Start 07/20/17 at 09:00 Simvastatin (Zocor) 10 mg QHS PO Last administered on 07/20/17 19:38; Start 07/20/17 at 21:00; Stop 07/21/17 at 17:31; Status DC Non-Formulary Medication 10 ml PRN Q6HRS PRN PO COUGH; Start 07/20/17 at 07:15; Stop 07/20/17 at 08:02; Status DC Lisinopril (Prinivil) 40 mg DAILY PO Last administered on 07/23/17 08:16; Start 07/20/17 at 09:00 Insulin Aspart (NovoLOG) 0-5 UNITS TIDBFRMEAL SQ Last administered on 07/23/17 17:38; Start 07/20/17 at 07:30 Dextrose 12.5 gm PRN Q15MIN PRN IV SEE COMMENTS; Start 07/20/17 at 07:30 Lorazepam (Ativan) 1 mg STK-MED ONCE .ROUTE ; Start 07/19/17 at 21:04; Stop 07/20 at 08:44; Status DC Acetaminophen (Tylenol) 650 mg PRN Q6HRS PRN PO PAIN / TEMP; Start 07/20/17 at 17:15; Stop 07/20/17 at 17:15; Status DC Multi-Ingredient Ointment (Analgesic [place]) 1 geraldine PRN QID PRN TP MUSCLE PAIN; Start 07/20/17 at 17:15; Stop 07/20/17 at 17:15; Status DC Al Hydroxide/Mg Hydroxide (Mylanta Plus Xs) 15 ml PRN AFTMEALHC PRN PO DYSPEPSIA; Start 07/20/17 at 17:15; Stop 07/20/17 at 17:15; Status DC Magnesium Hydroxide (Milk Of Magnesia) 2,400 mg PRN QHS PRN PO CONSTIPATION; Start 07/20/17 at 17:15; Stop 07/20/17 at 17:15; Status DC Trazodone HCl (Desyrel) 50 mg QHS PO Last administered on 07/20/17at 19:38; Start 07/20/17 at 21:00; Stop 07/21/17 at 18:48; Status DC Trazodone HCl (Desyrel) 50 mg PRN QHS PRN PO INSOMNIA Last administered on at 00:47; Start 07/20/17 at 21:00; Stop 07/21/17 at 18:48; Status DC Vitamin D (Vitamin D3) 50,000 unit WEEKLY PO Last administered on 07/20/17at 20: 22; Start 07/20/17 at 20:00 Atorvastatin Calcium (Lipitor) 20 mg QHS PO ; Start 07/20/17 at 21:00; Stop at 21:00; Status DC Atorvastatin Calcium (Lipitor) 10 mg QHS PO Last administered on 07/23/17at 19:37 ; Start 07/21/17 at 21:00 Trazodone HCl (Desyrel) 100 mg PRN QHS PRN PO INSOMNIA Last administered on 07/23at 00:33; Start 07/21/17 at 19:00; Stop 07/23/17 at 18:46; Status DC Trazodone HCl (Desyrel) 100 mg QHS PO Last administered on 07/21/17at 19:58; Start 07/21/17 at 21:00; Stop 07/23/17 at 18:46; Status DC Mirtazapine (Remeron) 15 mg QHS PO ; Start 07/21/17 at 21:00; Stop 07/21/17 at 21: 00; Status DC Olanzapine (ZyPREXA ZYDIS) 5 mg PRN Q2HR PRN PO PSYCHOSIS Last administered on 07/22/17at 22:06; Start 07/22/17 at 21:45 Amitriptyline HCl (Elavil) 50 mg QHS PO ; Start 07/23/17 at 21:00; Stop 07/23/17 at 21:00; Status DC Amitriptyline HCl (Elavil) 50 mg QHS PO Last administered on 07/23/17at 19:38; Start 07/22/17 at 22:00 Risperidone (RisperDAL) 0.5 mg DAILY PO ; Start 07/24/17 at 09:00 Risperidone (RisperDAL) 0.5 mg ONCE ONCE PO Last administered on 07/23/17at 17: 37; Start 07/23/17 at 16:30; Stop 07/23/17 at 16:42; Status DC Trazodone HCl (Desyrel) 150 mg PRN QHS PRN PO INSOMNIA; Start 07/23/17 at 18:45 Trazodone HCl (Desyrel) 150 mg QHS PO Last administered on 07/23/17at 19:38; Start 07/23/17 at 21:00 Active Scripts Active Reported Seroquel (Quetiapine Fumarate) 25 Mg Tablet 12.5 Mg PO DAILY Robitussin Nighttime Cough Dm (Dextromethorphan Hb/Doxylamine) 237 Ml Liquid 10 Ml PO PRN Q6HRS PRN Levemir Flextouch (Insulin Detemir) 100 Unit/1 Ml Insuln.pen 10 Unit SQ HS Cosopt Eye Drops (Dorzolamide Hcl/Timolol Maleat) 10 Ml Drops 1 Ml OU BID Prednisolone Acetate 5 Ml Drops.susp 1 Ml OD DAILY Alprazolam 0.25 Mg Tablet 0.25 Mg PO BID PRN Systane 0.3-0.4% Eye Drops (Propylene Glycol/Peg 400) 15 Ml Drops 15 Ml OS PRN Hydrocodone-Apap 5-325 (Hydrocodone Bit/Acetaminophen) 1 Each Tablet 2 Tab PO PRN Q6HRS PRN Docusate Sodium 100 Mg Capsule 100 Mg PO PRN DAILY PRN Hydrocodone-Apap 5-325 (Hydrocodone Bit/Acetaminophen) 1 Each Tablet 1 Tab PO BID PRN Milk Of Magnesia (Magnesium Hydroxide) 400 Mg/5 Ml Oral.susp 2,400 Mg PO PRN DAILY PRN Bisacodyl 10 Mg Supp.rect 10 Mg RC PRN ALT PRN Simvastatin 10 Mg Tablet 10 Mg PO DAILY Namenda Xr (Memantine Hcl) 28 Mg Cap.spr.24 28 Mg PO DAILY Mirtazapine 15 Mg Tablet 7.5 Mg PO Mirtazapine 15 Mg Tablet 1 Tab PO QHS Metformin Hcl 500 Mg Tablet 500 Mg PO BIDWMEALS Lisinopril 40 Mg Tablet 40 Mg PO DAILY Glipizide 5 Mg Tablet 5 Mg PO BID Furosemide 20 Mg Tablet 20 Mg PO DAILY Donepezil Hcl 10 Mg Tablet 10 Mg PO DAILY Clonidine Hcl 0.2 Mg Tablet 0.2 Mg PO BID Citalopram Hbr (Citalopram Hydrobromide) 20 Mg Tablet 20 Mg PO DAILY Buspirone Hcl 10 Mg Tablet 10 Mg PO BID Aspirin Ec (Aspirin) 81 Mg Tablet.dr 81 Mg PO DAILY Amlodipine Besylate 10 Mg Tablet 10 Mg PO DAILY I have reviewed the current psychotropics carefully including drug interactions. Risk benefit ratio favors no change other than as noted in my dictated progress note. Diagnosis: Problems: (1) MDD (major depressive disorder) (2) Dementia with behavioral disturbance (3) Anxiety disorder (4) Impulse control disorder (5) Psychotic depression (6) Mild cognitive impairment HECTOR LPEITEZ MD Jul 23, 2017 20:02
[2017-07-23] MEDS ORDERED: AMITRIPTYLINE HCL 50 MG TABLET PO SCH (21:00)
[2017-07-24 06:09] VITALS: BP 160/75
[2017-07-24] MEDS: INSULIN ASPART 300 UNITS/3 ML INSULN.PEN SQ SCH ×3 (08:11→16:54)
[2017-07-24] MEDS: metFORMIN 500 MG TABLET PO SCH ×2 (08:12→17:09)
[2017-07-24] MEDS: prednisoLONE ACETATE 1% OPHTH SUSPENSION 5ML BOTTLE. OD SCH (08:12)
[2017-07-24] MEDS: DORZOLAMIDE/TIMOLOL 2%/0.5% OPHTH SOLUTION 10ML BOTTLE. OU SCH ×2 (08:13→19:18)
[2017-07-24] MEDS: DONEPEZIL HCL 10 MG TABLET PO SCH (08:13)
[2017-07-24] MEDS: busPIRone 10 MG TABLET. PO SCH ×2 (08:13→19:19)
[2017-07-24] MEDS: ASPIRIN ENTERIC COATED 81 MG TABLET.DR. PO SCH (08:13)
[2017-07-24] MEDS: MEMANTINE 10 MG TABLET. PO SCH ×2 (08:14→19:18)
[2017-07-24] MEDS: FUROSEMIDE 20 MG TABLET PO SCH (08:14)
[2017-07-24] MEDS: cloNIDine HCL 0.2 MG TABLET PO SCH ×2 (08:14→19:17)
[2017-07-24] MEDS: CITALOPRAM 20 MG TABLET. PO SCH (08:14)
[2017-07-24] MEDS: glipiZIDE 5 MG TABLET PO SCH ×2 (08:14→19:18)
[2017-07-24] MEDS: LISINOPRIL 20 MG TABLET PO SCH (08:15)
[2017-07-24] MEDS: amLODIPine BESYLATE 10 MG TABLET PO SCH (08:15)
[2017-07-24] MEDS: risperiDONE 0.5 MG TABLET. PO SCH (08:16)
[2017-07-24 09:44] LABS: BASO # 0.1 x10^3/uL (0.0-0.2); BASO % 1 % (0-3); EOS # 0.2 x10^3/uL (0.0-0.7); EOS % 2 % (0-3); HEMATOCRIT 40.7 % (36.0-47.0); HEMOGLOBIN 13.4 g/dL (12.0-15.5); LYMPH # 1.3 x10^3/uL (1.0-4.8); LYMPH % 14 % (24-48); MEAN CORPUSCULAR HEMOGLOBIN 28 pg (25-35); MEAN CORPUSCULAR HGB CONC 33 g/dL (31-37); MEAN CORPUSCULAR VOLUME 85 fL (79-100); MONO # 0.6 x10^3/uL (0.0-1.1); MONO % 7 % (0-9); NEUT # 7.4 x10^3uL (1.8-7.7); NEUT % 77 % (31-73); PLATELET COUNT 299 x10^3/uL (140-400); RED BLOOD COUNT 4.79 x10^6/uL (3.50-5.40); RED CELL DISTRIBUTION WIDTH 14.1 % (11.5-14.5); WHITE BLOOD COUNT 9.6 x10^3/uL (4.0-11.0)
[2017-07-24 10:05] LABS: ALBUMIN 3.2 g/dL (3.4-5.0); ALBUMIN/GLOBULIN RATIO 0.8 (1.0-1.7); CALCIUM 8.8 mg/dL (8.5-10.1); CREATININE 0.9 mg/dL (0.6-1.0); GFR 62.6; POTASSIUM 3.4 mmol/L (3.5-5.1); TOTAL BILIRUBIN 0.6 mg/dL (0.2-1.0); TOTAL PROTEIN 7.4 g/dL (6.4-8.2)
[2017-07-24] MEDS ORDERED: POTASSIUM CHLORIDE 20 MEQ TABLET.ER. PO ONE (14:30)
[2017-07-24 16:14] VITALS: BP 152/81
[2017-07-24] MEDS: traZODone 100 MG TABLET. PO PRN ×2 (19:17→21:24)
[2017-07-24] MEDS: AMITRIPTYLINE HCL 50 MG TABLET PO SCH (19:18)
[2017-07-24] MEDS: ATORVASTATIN CALCIUM 20 MG TABLET PO SCH (19:35)
[2017-07-24] MEDS: INSULIN DETEMIR 300 UNITS/3 ML INSULN.PEN. SQ SCH (19:38)
--- NOTE | 2017-07-24 19:50 | PDOC ---
Exam Note: [place]ney Note: Please also refer to the separate dictated note~for this date of service dictated separately.~Patient seen individually. Discussed the patient with Nursing staff reviewed the chart.~Reviewed interim history and current functioning. Reviewed vital signs,~Labs/ Radiology~and current medications noted below. Continue current treatment with the changes noted in the dictated addendum note Assessment: Vital Signs: Vital Signs Date Time Temp Pulse Resp B/P (MAP) Pulse Ox O2 Delivery O2 Flow Rate FiO2 07/24/17 19:17 91 152/81 07/24/17 16:14 97.9 18 94 07/22/17 16:32 Room Air 07/21/17 15:55 95.0 I&O Intake and Output 07/24/17 07:00 Intake Total 1160 ml Balance 1160 ml Intake Oral 1160 ml Labs: Laboratory Tests Test 07/24/17 07:50 07/24/17 09:29 07/24/17 11:28 07/24/17 16:52 Glucose (Fingerstick) 130 mg/dL (70-99) H 117 mg/dL (70-99) H 150 mg/dL (70-99) H White Blood Count 9.6 x10^3/uL (4.0-11.0) Red Blood Count 4.79 x10^6/uL (3.50-5.40) Hemoglobin 13.4 g/dL (12.0-15.5) Hematocrit 40.7 % (36.0-47.0) Mean Corpuscular Volume 85 fL (79-100) Mean Corpuscular Hemoglobin 28 pg (25-35) Mean Corpuscular Hemoglobin Concent 33 g/dL (31-37) Red Cell Distribution Width 14.1 % (11.5-14.5) Platelet Count 299 x10^3/uL (140-400) Neutrophils (%) (Auto) 77 % (31-73) H Lymphocytes (%) (Auto) 14 % (24-48) L Monocytes (%) (Auto) 7 % (0-9) Eosinophils (%) (Auto) 2 % (0-3) Basophils (%) (Auto) 1 % (0-3) Neutrophils # (Auto) 7.4 x10^3uL (1.8-7.7) Lymphocytes # (Auto) 1.3 x10^3/uL (1.0-4.8) Monocytes # (Auto) 0.6 x10^3/uL (0.0-1.1) Eosinophils # (Auto) 0.2 x10^3/uL (0.0-0.7) Basophils # (Auto) 0.1 x10^3/uL (0.0-0.2) Sodium Level 142 mmol/L (136-145) Potassium Level 3.4 mmol/L (3.5-5.1) L Chloride Level 106 mmol/L (98-107) Carbon Dioxide Level 25 mmol/L (21-32) Anion Gap 11 (6-14) Blood Urea Nitrogen 16 mg/dL (7-20) Creatinine 0.9 mg/dL (0.6-1.0) Estimated GFR (Cockcroft-Gault) 62.6 BUN/Creatinine Ratio 18 (6-20) Glucose Level 232 mg/dL (70-99) H Calcium Level 8.8 mg/dL (8.5-10.1) Total Bilirubin 0.6 mg/dL (0.2-1.0) Aspartate Amino Transferase (AST) 37 U/L (15-37) Alanine Aminotransferase (ALT) 34 U/L (14-59) Alkaline Phosphatase 95 U/L (46-116) Total Protein 7.4 g/dL (6.4-8.2) Albumin 3.2 g/dL (3.4-5.0) L Albumin/Globulin Ratio 0.8 (1.0-1.7) L Test 07/24/17 19:09 Glucose (Fingerstick) 171 mg/dL (70-99) H Current Medications: Meds: Current Medications Lorazepam (Ativan) 0.5 mg 1X ONCE IV ; Start 07/19/17 at 21:00; Stop 07/19/17 at 21:00; Status DC Lorazepam (Ativan) 1 mg 1X ONCE PO Last administered on 07/19/17at 21:06; Start 07/19/17 at 21:00; Stop 07/19/17 at 21:04; Status DC Multi-Ingredient Ointment (Analgesic [place]) 1 geraldine PRN QID PRN TP MUSCLE PAIN; Start 07/19/17 at 21:45 Al Hydroxide/Mg Hydroxide (Mylanta Plus Xs) 15 ml PRN AFTMEALHC PRN PO DYSPEPSIA; Start 07/19/17 at 21:45 Magnesium Hydroxide (Milk Of Magnesia) 2,400 mg PRN QHS PRN PO CONSTIPATION; Start 07/19/17 at 21:45 Olanzapine (ZyPREXA ZYDIS) 2.5 mg PRN Q2HR PRN PO PSYCHOSIS Last administered on 07/22/17 20:45; Start 07/19/17 at 22:00; Stop 07/22/17 at 21:34; Status DC Alprazolam (Xanax) 0.25 mg PRN BID PRN PO ANXIETY / AGITATION Last administered on 07/22/17 20:45; Start 07/19/17 at 22:30 Buspirone HCl (Buspar) 10 mg BID PO Last administered on 07/24/17 19:19; Start 07/20/17 at 09:00 Citalopram Hydrobromide (CeleXA) 20 mg DAILY PO Last administered on 07/24/17 08:14; Start 07/20/17 at 09:00 Donepezil HCl (Aricept) 10 mg DAILY PO Last administered on 07/24/17 08:13; Start 07/20/17 at 09:00 Mirtazapine (Remeron) 15 mg QHS PO Last administered on 07/21/17 19:55; Start 07/20/17 at 21:00; Stop 07/22/17 at 21:34; Status DC Memantine (Namenda) 10 mg BID PO Last administered on 07/24/17 19:18; Start 07/20/17 at 09:00 Amlodipine Besylate (Norvasc) 10 mg DAILY PO Last administered on 07/24/17 08: 15; Start 07/20/17 at 09:00 Aspirin (Aspirin Enteric Coated) 81 mg DAILY PO Last administered on 07/24/17 08:13; Start 07/20/17 at 09:00 Bisacodyl (Dulcolax Supp) 10 mg PRN ALT PRN RC CONSTIPATION; Start 07/20/17 at 07:15 Clonidine HCl (Catapres) 0.2 mg BID PO Last administered on 07/24/17 19:17; Start 07/20/17 at 09:00 Docusate Sodium (Colace) 100 mg PRN DAILY PRN PO CONSTIPATION; Start 07/20/17 at 07:15 Dorzolamide/ Timolol (Cosopt) 1 drop BID OU Last administered on 07/24/17 19:18 ; Start 07/20/17 at 09:00 Furosemide (Lasix) 20 mg DAILY PO Last administered on 07/24/17 08:14; Start at 09:00 Glipizide (Glucotrol) 5 mg BID PO Last administered on 07/24/17 19:18; Start at 09:00 Acetaminophen/ Hydrocodone Bitart (Lortab 5/325) 1 tab PRN BID PRN PO PAIN Last administered on 07/22/17 18:40; Start 07/20/17 at 07:15 Insulin Detemir (Levemir) 10 units HS SQ Last administered on 07/24/17 19:38; Start 07/20/17 at 21:00 Magnesium Hydroxide (Milk Of Magnesia) 400 mg PRN DAILY PRN PO CONSTIPATION; Start 07/20/17 at 07:15; Stop 07/21/17 at 02:10; Status DC Metformin HCl (Glucophage) 500 mg BIDWMEALS PO Last administered on 07/24/17 17 :09; Start 07/20/17 at 08:00 Prednisolone Acetate (Pred Forte) 1 drop DAILY OD Last administered on 08:12; Start 07/20/17 at 09:00 Simvastatin (Zocor) 10 mg QHS PO Last administered on 07/20/17 19:38; Start 07/20/17 at 21:00; Stop 07/21/17 at 17:31; Status DC Non-Formulary Medication 10 ml PRN Q6HRS PRN PO COUGH; Start 07/20/17 at 07:15; Stop 07/20/17 at 08:02; Status DC Lisinopril (Prinivil) 40 mg DAILY PO Last administered on 07/24/17 08:15; Start 07/20/17 at 09:00 Insulin Aspart (NovoLOG) 0-5 UNITS TIDBFRMEAL SQ Last administered on 07/23/17 17:38; Start 07/20/17 at 07:30 Dextrose 12.5 gm PRN Q15MIN PRN IV SEE COMMENTS; Start 07/20/17 at 07:30 Lorazepam (Ativan) 1 mg STK-MED ONCE .ROUTE ; Start 07/19/17 at 21:04; Stop 07/20 at 08:44; Status DC Acetaminophen (Tylenol) 650 mg PRN Q6HRS PRN PO PAIN / TEMP; Start 07/20/17 at 17:15; Stop 07/20/17 at 17:15; Status DC Multi-Ingredient Ointment (Analgesic [place]) 1 geraldine PRN QID PRN TP MUSCLE PAIN; Start 07/20/17 at 17:15; Stop 07/20/17 at 17:15; Status DC Al Hydroxide/Mg Hydroxide (Mylanta Plus Xs) 15 ml PRN AFTMEALHC PRN PO DYSPEPSIA; Start 07/20/17 at 17:15; Stop 07/20/17 at 17:15; Status DC Magnesium Hydroxide (Milk Of Magnesia) 2,400 mg PRN QHS PRN PO CONSTIPATION; Start 07/20/17 at 17:15; Stop 07/20/17 at 17:15; Status DC Trazodone HCl (Desyrel) 50 mg QHS PO Last administered on 07/20/17at 19:38; Start 07/20/17 at 21:00; Stop 07/21/17 at 18:48; Status DC Trazodone HCl (Desyrel) 50 mg PRN QHS PRN PO INSOMNIA Last administered on at 00:47; Start 07/20/17 at 21:00; Stop 07/21/17 at 18:48; Status DC Vitamin D (Vitamin D3) 50,000 unit WEEKLY PO Last administered on 07/20/17at 20: 22; Start 07/20/17 at 20:00 Atorvastatin Calcium (Lipitor) 20 mg QHS PO ; Start 07/20/17 at 21:00; Stop at 21:00; Status DC Atorvastatin Calcium (Lipitor) 10 mg QHS PO Last administered on 07/23/17at 19:37 ; Start 07/21/17 at 21:00; Stop 07/24/17 at 14:27; Status DC Trazodone HCl (Desyrel) 100 mg PRN QHS PRN PO INSOMNIA Last administered on 07/23at 00:33; Start 07/21/17 at 19:00; Stop 07/23/17 at 18:46; Status DC Trazodone HCl (Desyrel) 100 mg QHS PO Last administered on 07/21/17at 19:58; Start 07/21/17 at 21:00; Stop 07/23/17 at 18:46; Status DC Mirtazapine (Remeron) 15 mg QHS PO ; Start 07/21/17 at 21:00; Stop 07/21/17 at 21: 00; Status DC Olanzapine (ZyPREXA ZYDIS) 5 mg PRN Q2HR PRN PO PSYCHOSIS Last administered on 07/22/17 22:06; Start 07/22/17 at 21:45 Amitriptyline HCl (Elavil) 50 mg QHS PO ; Start 07/23/17 at 21:00; Stop 07/23/17 at 21:00; Status DC Amitriptyline HCl (Elavil) 50 mg QHS PO Last administered on 07/24/17 19:18; Start 07/22/17 at 22:00 Risperidone (RisperDAL) 0.5 mg DAILY PO Last administered on 07/24/17at 08:16; Start 07/24/17 at 09:00 Risperidone (RisperDAL) 0.5 mg ONCE ONCE PO Last administered on 07/23/17at 17: 37; Start 07/23/17 at 16:30; Stop 07/23/17 at 16:42; Status DC Trazodone HCl (Desyrel) 150 mg PRN QHS PRN PO INSOMNIA Last administered on 07/24 19:17; Start 07/23/17 at 18:45 Trazodone HCl (Desyrel) 150 mg QHS PO Last administered on 07/23/17 22:06; Start 07/23/17 at 21:00 Potassium Chloride (Klor-Con) 20 meq DAILYWBKFT PO ; Start 07/25/17 at 08:00 Potassium Chloride (Klor-Con) 20 meq 1X ONCE PO Last administered on 07/24/17at 14:33; Start 07/24/17 at 14:30; Stop 07/24/17 at 14:31; Status DC Atorvastatin Calcium (Lipitor) 20 mg QHS PO Last administered on 07/24/17at 19:35 ; Start 07/24/17 at 21:00 Active Scripts Active Reported Seroquel (Quetiapine Fumarate) 25 Mg Tablet 12.5 Mg PO DAILY Robitussin Nighttime Cough Dm (Dextromethorphan Hb/Doxylamine) 237 Ml Liquid 10 Ml PO PRN Q6HRS PRN Levemir Flextouch (Insulin Detemir) 100 Unit/1 Ml Insuln.pen 10 Unit SQ HS Cosopt Eye Drops (Dorzolamide Hcl/Timolol Maleat) 10 Ml Drops 1 Ml OU BID Prednisolone Acetate 5 Ml Drops.susp 1 Ml OD DAILY Alprazolam 0.25 Mg Tablet 0.25 Mg PO BID PRN Systane 0.3-0.4% Eye Drops (Propylene Glycol/Peg 400) 15 Ml Drops 15 Ml OS PRN Hydrocodone-Apap 5-325 (Hydrocodone Bit/Acetaminophen) 1 Each Tablet 2 Tab PO PRN Q6HRS PRN Docusate Sodium 100 Mg Capsule 100 Mg PO PRN DAILY PRN Hydrocodone-Apap 5-325 (Hydrocodone Bit/Acetaminophen) 1 Each Tablet 1 Tab PO BID PRN Milk Of Magnesia (Magnesium Hydroxide) 400 Mg/5 Ml Oral.susp 2,400 Mg PO PRN DAILY PRN Bisacodyl 10 Mg Supp.rect 10 Mg RC PRN ALT PRN Simvastatin 10 Mg Tablet 10 Mg PO DAILY Namenda Xr (Memantine Hcl) 28 Mg Cap.spr.24 28 Mg PO DAILY Mirtazapine 15 Mg Tablet 7.5 Mg PO Mirtazapine 15 Mg Tablet 1 Tab PO QHS Metformin Hcl 500 Mg Tablet 500 Mg PO BIDWMEALS Lisinopril 40 Mg Tablet 40 Mg PO DAILY Glipizide 5 Mg Tablet 5 Mg PO BID Furosemide 20 Mg Tablet 20 Mg PO DAILY Donepezil Hcl 10 Mg Tablet 10 Mg PO DAILY Clonidine Hcl 0.2 Mg Tablet 0.2 Mg PO BID Citalopram Hbr (Citalopram Hydrobromide) 20 Mg Tablet 20 Mg PO DAILY Buspirone Hcl 10 Mg Tablet 10 Mg PO BID Aspirin Ec (Aspirin) 81 Mg Tablet.dr 81 Mg PO DAILY Amlodipine Besylate 10 Mg Tablet 10 Mg PO DAILY I have reviewed the current psychotropics carefully including drug interactions. Risk benefit ratio favors no change other than as noted in my dictated progress note. Diagnosis: Problems: (1) MDD (major depressive disorder) (2) Dementia with behavioral disturbance (3) Anxiety disorder (4) Impulse control disorder (5) Psychotic depression (6) Mild cognitive impairment HECTOR PLEITEZ MD Jul 24, 2017 19:50
--- NOTE | 2017-07-24 23:54 | PN ---
DATE: 07/23/2017 PSYCHIATRIC PROGRESS NOTE This is a late entry for 07/23/2017, covers elements not covered in my initial note of 07/23/2017. SUBJECTIVE: I met with the patient the evening of 07/23/2017. This note covers elements not covered in my initial note of 07/23/2017. Overall, the patient comes out of her room most of the days. She is quite obsessive hoarding toilet paper, which is quite significant, per nursing report, slept poorly previous evening and we will increase the trazodone to 150 mg at bedtime, may repeat x 1 for insomnia. REVIEW OF SYSTEMS: No CV, , pulmonary, eye system symptoms on review. MENTAL STATUS EXAM: Reasonably oriented to herself and situation. Speech is coherent, abstraction fair, computation impaired, language function intact. She is still quite paranoid, suspicious, as I met with her. No suicidal or homicidal ideation. LABORATORY DATA: Reviewed. IMPRESSION: Major depressive disorder with psychotic features; cognitive disorder, unspecified. PLAN: Continue psychotropics mentioned in my initial note with changes indicated above. MAN Yanira PLEITEZ MD DR: DINO/demetrio JOB#: [id number] / [id number]
[2017-07-25 05:56] VITALS: BP 175/83
[2017-07-25] MEDS: INSULIN ASPART 300 UNITS/3 ML INSULN.PEN SQ SCH ×3 (08:21→16:24)
[2017-07-25] MEDS: ASPIRIN ENTERIC COATED 81 MG TABLET.DR. PO SCH (08:23)
[2017-07-25] MEDS: glipiZIDE 5 MG TABLET PO SCH ×2 (08:23→19:21)
[2017-07-25] MEDS: DONEPEZIL HCL 10 MG TABLET PO SCH (08:23)
[2017-07-25] MEDS: amLODIPine BESYLATE 10 MG TABLET PO SCH (08:24)
[2017-07-25] MEDS: FUROSEMIDE 20 MG TABLET PO SCH (08:24)
[2017-07-25] MEDS: risperiDONE 0.5 MG TABLET. PO SCH (08:24)
[2017-07-25] MEDS: MEMANTINE 10 MG TABLET. PO SCH ×2 (08:24→19:22)
[2017-07-25] MEDS: CITALOPRAM 20 MG TABLET. PO SCH (08:24)
[2017-07-25] MEDS: busPIRone 10 MG TABLET. PO SCH ×2 (08:24→19:21)
[2017-07-25] MEDS: metFORMIN 500 MG TABLET PO SCH ×2 (08:25→16:47)
[2017-07-25] MEDS: LISINOPRIL 20 MG TABLET PO SCH (08:25)
[2017-07-25] MEDS: cloNIDine HCL 0.2 MG TABLET PO SCH ×2 (08:25→19:21)
[2017-07-25] MEDS: prednisoLONE ACETATE 1% OPHTH SUSPENSION 5ML BOTTLE. OD SCH (08:25)
[2017-07-25] MEDS: POTASSIUM CHLORIDE 20 MEQ TABLET.ER. PO SCH (08:26)
[2017-07-25] MEDS: DORZOLAMIDE/TIMOLOL 2%/0.5% OPHTH SOLUTION 10ML BOTTLE. OU SCH ×2 (08:26→19:22)
[2017-07-25 15:50] VITALS: BP 148/79
--- NOTE | 2017-07-25 18:42 | PN ---
DATE: 07/24/2017 PSYCHIATRIC PROGRESS NOTE This late entry 07/24/2017 covers elements not covered in my initial note 07/24/2017. SUBJECTIVE: The patient did reasonably well the night before and more cooperative during the day, still paranoid, suspicious towards the evening, withdrawn, spends much time in her room with the lights shut off which is where I met with her. Sodium on labs are unremarkable, potassium low at 3.4, supplemented per Dr. Pandya. REVIEW OF SYSTEMS: No CV, , pulmonary, eye, ENT system symptoms on review. MENTAL STATUS EXAM: Oriented to herself and situation. Speech moderate latency, often responses monosyllabic. Abstraction fair, computation impaired, language function intact, attention span short. Mood and affect somewhat withdrawn, still paranoid. LABORATORY DATA: Reviewed. IMPRESSION: Major depressive disorder with psychotic features; cognitive disorder, unspecified. PLAN: Continue current psychotropics, may need to increase Risperdal in due course. MAN Yanira PLEITEZ MD DR: DINO/demetrio JOB#: [id number] / [id number]
[2017-07-25] MEDS: traZODone 100 MG TABLET. PO SCH (19:21)
[2017-07-25] MEDS: AMITRIPTYLINE HCL 50 MG TABLET PO SCH (19:22)
[2017-07-25] MEDS: ATORVASTATIN CALCIUM 20 MG TABLET PO SCH (19:22)
[2017-07-25] MEDS: INSULIN DETEMIR 300 UNITS/3 ML INSULN.PEN. SQ SCH (19:26)
--- NOTE | 2017-07-25 19:48 | PDOC ---
Exam Note: [place] Note: Please also refer to the separate dictated note~for this date of service dictated separately.~Patient seen individually. Discussed the patient with Nursing staff reviewed the chart.~Reviewed interim history and current functioning. Reviewed vital signs,~Labs/ Radiology~and current medications noted below. Continue current treatment with the changes noted in the dictated addendum note Assessment: Vital Signs: Vital Signs Date Time Temp Pulse Resp B/P (MAP) Pulse Ox O2 Delivery O2 Flow Rate FiO2 07/25/17 19:21 88 148/79 07/25/17 15:50 98.5 20 94 07/22/17 16:32 Room Air 07/21/17 15:55 95.0 I&O Intake and Output 07/25/17 07:00 Intake Total 1320 ml Balance 1320 ml Intake Oral 1320 ml # Voids 2 Labs: Laboratory Tests Test 07/25/17 07:17 07/25/17 11:35 07/25/17 16:17 07/25/17 19:05 Glucose (Fingerstick) 132 mg/dL (70-99) H 129 mg/dL (70-99) H 140 mg/dL (70-99) H 124 mg/dL (70-99) H Current Medications: Meds: Current Medications Lorazepam (Ativan) 0.5 mg 1X ONCE IV ; Start 07/19/17 at 21:00; Stop 07/19/17 at 21:00; Status DC Lorazepam (Ativan) 1 mg 1X ONCE PO Last administered on 07/19/17at 21:06; Start 07/19/17 at 21:00; Stop 07/19/17 at 21:04; Status DC Multi-Ingredient Ointment (Analgesic [place]) 1 geraldine PRN QID PRN TP MUSCLE PAIN; Start 07/19/17 at 21:45 Al Hydroxide/Mg Hydroxide (Mylanta Plus Xs) 15 ml PRN AFTMEALHC PRN PO DYSPEPSIA; Start 07/19/17 at 21:45 Magnesium Hydroxide (Milk Of Magnesia) 2,400 mg PRN QHS PRN PO CONSTIPATION; Start 07/19/17 at 21:45 Olanzapine (ZyPREXA ZYDIS) 2.5 mg PRN Q2HR PRN PO PSYCHOSIS Last administered on 07/22/17at 20:45; Start 07/19/17 at 22:00; Stop 07/22/17 at 21:34; Status DC Alprazolam (Xanax) 0.25 mg PRN BID PRN PO ANXIETY / AGITATION Last administered on 07/22/17 20:45; Start 07/19/17 at 22:30 Buspirone HCl (Buspar) 10 mg BID PO Last administered on 07/25/17 19:21; Start 07/20/17 at 09:00 Citalopram Hydrobromide (CeleXA) 20 mg DAILY PO Last administered on 07/25/17 08:24; Start 07/20/17 at 09:00 Donepezil HCl (Aricept) 10 mg DAILY PO Last administered on 07/25/17 08:23; Start 07/20/17 at 09:00 Mirtazapine (Remeron) 15 mg QHS PO Last administered on 07/21/17 19:55; Start 07/20/17 at 21:00; Stop 07/22/17 at 21:34; Status DC Memantine (Namenda) 10 mg BID PO Last administered on 07/25/17 19:22; Start 07/20/17 at 09:00 Amlodipine Besylate (Norvasc) 10 mg DAILY PO Last administered on 07/25/17 08: 24; Start 07/20/17 at 09:00 Aspirin (Aspirin Enteric Coated) 81 mg DAILY PO Last administered on 07/25/17 08:23; Start 07/20/17 at 09:00 Bisacodyl (Dulcolax Supp) 10 mg PRN ALT PRN RC CONSTIPATION; Start 07/20/17 at 07:15 Clonidine HCl (Catapres) 0.2 mg BID PO Last administered on 07/25/17 19:21; Start 07/20/17 at 09:00 Docusate Sodium (Colace) 100 mg PRN DAILY PRN PO CONSTIPATION; Start 07/20/17 at 07:15 Dorzolamide/ Timolol (Cosopt) 1 drop BID OU Last administered on 07/25/17 19:22 ; Start 07/20/17 at 09:00 Furosemide (Lasix) 20 mg DAILY PO Last administered on 07/25/17 08:24; Start at 09:00 Glipizide (Glucotrol) 5 mg BID PO Last administered on 07/25/17 19:21; Start at 09:00 Acetaminophen/ Hydrocodone Bitart (Lortab 5/325) 1 tab PRN BID PRN PO PAIN Last administered on 07/22/17 18:40; Start 07/20/17 at 07:15 Insulin Detemir (Levemir) 10 units HS SQ Last administered on 07/25/17 19:26; Start 07/20/17 at 21:00 Magnesium Hydroxide (Milk Of Magnesia) 400 mg PRN DAILY PRN PO CONSTIPATION; Start 07/20/17 at 07:15; Stop 07/21/17 at 02:10; Status DC Metformin HCl (Glucophage) 500 mg BIDWMEALS PO Last administered on 07/25/17 16 :47; Start 07/20/17 at 08:00 Prednisolone Acetate (Pred Forte) 1 drop DAILY OD Last administered on 08:25; Start 07/20/17 at 09:00 Simvastatin (Zocor) 10 mg QHS PO Last administered on 07/20/17 19:38; Start 07/20/17 at 21:00; Stop 07/21/17 at 17:31; Status DC Non-Formulary Medication 10 ml PRN Q6HRS PRN PO COUGH; Start 07/20/17 at 07:15; Stop 07/20/17 at 08:02; Status DC Lisinopril (Prinivil) 40 mg DAILY PO Last administered on 07/25/17 08:25; Start 07/20/17 at 09:00 Insulin Aspart (NovoLOG) 0-5 UNITS TIDBFRMEAL SQ Last administered on 07/23/17 17:38; Start 07/20/17 at 07:30 Dextrose 12.5 gm PRN Q15MIN PRN IV SEE COMMENTS; Start 07/20/17 at 07:30 Lorazepam (Ativan) 1 mg STK-MED ONCE .ROUTE ; Start 07/19/17 at 21:04; Stop 07/20 at 08:44; Status DC Acetaminophen (Tylenol) 650 mg PRN Q6HRS PRN PO PAIN / TEMP; Start 07/20/17 at 17:15; Stop 07/20/17 at 17:15; Status DC Multi-Ingredient Ointment (Analgesic [place]) 1 geraldine PRN QID PRN TP MUSCLE PAIN; Start 07/20/17 at 17:15; Stop 07/20/17 at 17:15; Status DC Al Hydroxide/Mg Hydroxide (Mylanta Plus Xs) 15 ml PRN AFTMEALHC PRN PO DYSPEPSIA; Start 07/20/17 at 17:15; Stop 07/20/17 at 17:15; Status DC Magnesium Hydroxide (Milk Of Magnesia) 2,400 mg PRN QHS PRN PO CONSTIPATION; Start 07/20/17 at 17:15; Stop 07/20/17 at 17:15; Status DC Trazodone HCl (Desyrel) 50 mg QHS PO Last administered on 07/20/17at 19:38; Start 07/20/17 at 21:00; Stop 07/21/17 at 18:48; Status DC Trazodone HCl (Desyrel) 50 mg PRN QHS PRN PO INSOMNIA Last administered on at 00:47; Start 07/20/17 at 21:00; Stop 07/21/17 at 18:48; Status DC Vitamin D (Vitamin D3) 50,000 unit WEEKLY PO Last administered on 07/20/17at 20: 22; Start 07/20/17 at 20:00 Atorvastatin Calcium (Lipitor) 20 mg QHS PO ; Start 07/20/17 at 21:00; Stop at 21:00; Status DC Atorvastatin Calcium (Lipitor) 10 mg QHS PO Last administered on 07/23/17at 19:37 ; Start 07/21/17 at 21:00; Stop 07/24/17 at 14:27; Status DC Trazodone HCl (Desyrel) 100 mg PRN QHS PRN PO INSOMNIA Last administered on 07/23at 00:33; Start 07/21/17 at 19:00; Stop 07/23/17 at 18:46; Status DC Trazodone HCl (Desyrel) 100 mg QHS PO Last administered on 07/21/17at 19:58; Start 07/21/17 at 21:00; Stop 07/23/17 at 18:46; Status DC Mirtazapine (Remeron) 15 mg QHS PO ; Start 07/21/17 at 21:00; Stop 07/21/17 at 21: 00; Status DC Olanzapine (ZyPREXA ZYDIS) 5 mg PRN Q2HR PRN PO PSYCHOSIS Last administered on 07/22/17 22:06; Start 07/22/17 at 21:45 Amitriptyline HCl (Elavil) 50 mg QHS PO ; Start 07/23/17 at 21:00; Stop 07/23/17 at 21:00; Status DC Amitriptyline HCl (Elavil) 50 mg QHS PO Last administered on 07/25/17 19:22; Start 07/22/17 at 22:00 Risperidone (RisperDAL) 0.5 mg DAILY PO Last administered on 07/25/17 08:24; Start 07/24/17 at 09:00; Stop 07/25/17 at 18:07; Status DC Risperidone (RisperDAL) 0.5 mg ONCE ONCE PO Last administered on 07/23/17 17: 37; Start 07/23/17 at 16:30; Stop 07/23/17 at 16:42; Status DC Trazodone HCl (Desyrel) 150 mg PRN QHS PRN PO INSOMNIA Last administered on 07/24 21:24; Start 07/23/17 at 18:45 Trazodone HCl (Desyrel) 150 mg QHS PO Last administered on 07/25/17 19:21; Start 07/23/17 at 21:00 Potassium Chloride (Klor-Con) 20 meq DAILYWBKFT PO Last administered on 08:26; Start 07/25/17 at 08:00 Potassium Chloride (Klor-Con) 20 meq 1X ONCE PO Last administered on 07/24/17 14:33; Start 07/24/17 at 14:30; Stop 07/24/17 at 14:31; Status DC Atorvastatin Calcium (Lipitor) 20 mg QHS PO Last administered on 07/25/17 19:22 ; Start 07/24/17 at 21:00 Risperidone (RisperDAL) 0.75 mg DAILY PO ; Start 07/26/17 at 09:00 Active Scripts Active Reported Seroquel (Quetiapine Fumarate) 25 Mg Tablet 12.5 Mg PO DAILY Robitussin Nighttime Cough Dm (Dextromethorphan Hb/Doxylamine) 237 Ml Liquid 10 Ml PO PRN Q6HRS PRN Levemir Flextouch (Insulin Detemir) 100 Unit/1 Ml Insuln.pen 10 Unit SQ HS Cosopt Eye Drops (Dorzolamide Hcl/Timolol Maleat) 10 Ml Drops 1 Ml OU BID Prednisolone Acetate 5 Ml Drops.susp 1 Ml OD DAILY Alprazolam 0.25 Mg Tablet 0.25 Mg PO BID PRN Systane 0.3-0.4% Eye Drops (Propylene Glycol/Peg 400) 15 Ml Drops 15 Ml OS PRN Hydrocodone-Apap 5-325 (Hydrocodone Bit/Acetaminophen) 1 Each Tablet 2 Tab PO PRN Q6HRS PRN Docusate Sodium 100 Mg Capsule 100 Mg PO PRN DAILY PRN Hydrocodone-Apap 5-325 (Hydrocodone Bit/Acetaminophen) 1 Each Tablet 1 Tab PO BID PRN Milk Of Magnesia (Magnesium Hydroxide) 400 Mg/5 Ml Oral.susp 2,400 Mg PO PRN DAILY PRN Bisacodyl 10 Mg Supp.rect 10 Mg RC PRN ALT PRN Simvastatin 10 Mg Tablet 10 Mg PO DAILY Namenda Xr (Memantine Hcl) 28 Mg Cap.spr.24 28 Mg PO DAILY Mirtazapine 15 Mg Tablet 7.5 Mg PO Mirtazapine 15 Mg Tablet 1 Tab PO QHS Metformin Hcl 500 Mg Tablet 500 Mg PO BIDWMEALS Lisinopril 40 Mg Tablet 40 Mg PO DAILY Glipizide 5 Mg Tablet 5 Mg PO BID Furosemide 20 Mg Tablet 20 Mg PO DAILY Donepezil Hcl 10 Mg Tablet 10 Mg PO DAILY Clonidine Hcl 0.2 Mg Tablet 0.2 Mg PO BID Citalopram Hbr (Citalopram Hydrobromide) 20 Mg Tablet 20 Mg PO DAILY Buspirone Hcl 10 Mg Tablet 10 Mg PO BID Aspirin Ec (Aspirin) 81 Mg Tablet.dr 81 Mg PO DAILY Amlodipine Besylate 10 Mg Tablet 10 Mg PO DAILY I have reviewed the current psychotropics carefully including drug interactions. Risk benefit ratio favors no change other than as noted in my dictated progress note. Diagnosis: Problems: (1) MDD (major depressive disorder) (2) Dementia with behavioral disturbance (3) Anxiety disorder (4) Impulse control disorder (5) Psychotic depression (6) Mild cognitive impairment HECTOR PLEITEZ MD Jul 25, 2017 19:48
[2017-07-26] MEDS: traZODone 100 MG TABLET. PO PRN (01:23)
[2017-07-26] MEDS: HYDROcodone/APAP 5/325MG 1 TAB TABLET PO PRN (01:23)
[2017-07-26 05:54] VITALS: BP 160/84
[2017-07-26] MEDS: INSULIN ASPART 300 UNITS/3 ML INSULN.PEN SQ SCH ×3 (07:58→17:00)
[2017-07-26] MEDS: DORZOLAMIDE/TIMOLOL 2%/0.5% OPHTH SOLUTION 10ML BOTTLE. OU SCH ×2 (08:45→19:32)
[2017-07-26] MEDS: glipiZIDE 5 MG TABLET PO SCH ×2 (08:45→19:26)
[2017-07-26] MEDS: prednisoLONE ACETATE 1% OPHTH SUSPENSION 5ML BOTTLE. OD SCH (08:45)
[2017-07-26] MEDS: LISINOPRIL 20 MG TABLET PO SCH (08:45)
[2017-07-26] MEDS: FUROSEMIDE 20 MG TABLET PO SCH (08:46)
[2017-07-26] MEDS: amLODIPine BESYLATE 10 MG TABLET PO SCH (08:46)
[2017-07-26] MEDS: metFORMIN 500 MG TABLET PO SCH ×2 (08:46→16:44)
[2017-07-26] MEDS: ASPIRIN ENTERIC COATED 81 MG TABLET.DR. PO SCH (08:46)
[2017-07-26] MEDS: DONEPEZIL HCL 10 MG TABLET PO SCH (08:46)
[2017-07-26] MEDS: busPIRone 10 MG TABLET. PO SCH ×2 (08:46→19:26)
[2017-07-26] MEDS: MEMANTINE 10 MG TABLET. PO SCH ×2 (08:46→19:26)
[2017-07-26] MEDS: CITALOPRAM 20 MG TABLET. PO SCH (08:46)
[2017-07-26] MEDS: POTASSIUM CHLORIDE 20 MEQ TABLET.ER. PO SCH (08:47)
[2017-07-26] MEDS: cloNIDine HCL 0.2 MG TABLET PO SCH ×2 (08:47→19:27)
[2017-07-26] MEDS: risperiDONE 0.5 MG TABLET. PO SCH (08:48)
[2017-07-26 16:13] VITALS: BP 128/89
--- NOTE | 2017-07-26 17:32 | PN ---
DATE: 07/25/2017 This late entry 07/25/2017 covers elements not covered in my initial note 07/25/2017. Met with the patient in the evening of 07/25/2017. The patient remains somewhat paranoid, withdrawn, spends much time in her room, but did come out to the day room much more than she has in the recent past, but did not participate in activities. Met with her in her room. No CV, , pulmonary, eye, ENT system symptoms on review. She sits in her room lights off, which is how she does it at the long-term as well. MENTAL STATUS EXAM: Oriented to herself and situation. Speech has some latency, coherent. Abstraction fair, computation impaired, language function intact, attention span short. Mood and affect still somewhat anxious, labile, paranoid, but better than before. LABORATORY DATA: Reviewed. 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 Rest unchanged. PLAN: Increase Risperdal to 0.75 mg p.o. daily. Continue rest unchanged per initial note. HECTOR PLEITEZ MD DR: DINO/demetrio JOB#: [id number] / [id number]
[2017-07-26] MEDS: traZODone 100 MG TABLET. PO SCH (19:25)
[2017-07-26] MEDS: ATORVASTATIN CALCIUM 20 MG TABLET PO SCH (19:26)
[2017-07-26] MEDS: AMITRIPTYLINE HCL 50 MG TABLET PO SCH (19:26)
[2017-07-26] MEDS: INSULIN DETEMIR 300 UNITS/3 ML INSULN.PEN. SQ SCH (19:29)
--- NOTE | 2017-07-26 19:48 | PDOC ---
Exam Note: [place] Note: Please also refer to the separate dictated note~for this date of service dictated separately.~Patient seen individually. Discussed the patient with Nursing staff reviewed the chart.~Reviewed interim history and current functioning. Reviewed vital signs,~Labs/ Radiology~and current medications noted below. Continue current treatment with the changes noted in the dictated addendum note Assessment: Vital Signs: Vital Signs Date Time Temp Pulse Resp B/P (MAP) Pulse Ox O2 Delivery O2 Flow Rate FiO2 07/26/17 19:27 80 128/89 07/26/17 16:13 97.6 18 99 07/22/17 16:32 Room Air 07/21/17 15:55 95.0 I&O Intake and Output 07/26/17 07:00 Intake Total 600 ml Balance 600 ml Intake Oral 600 ml # Voids 2 Labs: Laboratory Tests Test 07/26/17 07:25 07/26/17 11:38 07/26/17 16:53 07/26/17 19:14 Glucose (Fingerstick) 96 mg/dL (70-99) 155 mg/dL (70-99) H 173 mg/dL (70-99) H 158 mg/dL (70-99) H Current Medications: Meds: Current Medications Lorazepam (Ativan) 0.5 mg 1X ONCE IV ; Start 07/19/17 at 21:00; Stop 07/19/17 at 21:00; Status DC Lorazepam (Ativan) 1 mg 1X ONCE PO Last administered on 07/19/17at 21:06; Start 07/19/17 at 21:00; Stop 07/19/17 at 21:04; Status DC Multi-Ingredient Ointment (Analgesic [place]) 1 geraldine PRN QID PRN TP MUSCLE PAIN; Start 07/19/17 at 21:45 Al Hydroxide/Mg Hydroxide (Mylanta Plus Xs) 15 ml PRN AFTMEALHC PRN PO DYSPEPSIA; Start 07/19/17 at 21:45 Magnesium Hydroxide (Milk Of Magnesia) 2,400 mg PRN QHS PRN PO CONSTIPATION; Start 07/19/17 at 21:45 Olanzapine (ZyPREXA ZYDIS) 2.5 mg PRN Q2HR PRN PO PSYCHOSIS Last administered on 07/22/17at 20:45; Start 07/19/17 at 22:00; Stop 07/22/17 at 21:34; Status DC Alprazolam (Xanax) 0.25 mg PRN BID PRN PO ANXIETY / AGITATION Last administered on 07/22/17 20:45; Start 07/19/17 at 22:30 Buspirone HCl (Buspar) 10 mg BID PO Last administered on 07/26/17 19:26; Start 07/20/17 at 09:00 Citalopram Hydrobromide (CeleXA) 20 mg DAILY PO Last administered on 07/26/17 08:46; Start 07/20/17 at 09:00 Donepezil HCl (Aricept) 10 mg DAILY PO Last administered on 07/26/17 08:46; Start 07/20/17 at 09:00 Mirtazapine (Remeron) 15 mg QHS PO Last administered on 07/21/17 19:55; Start 07/20/17 at 21:00; Stop 07/22/17 at 21:34; Status DC Memantine (Namenda) 10 mg BID PO Last administered on 07/26/17 19:26; Start 07/20/17 at 09:00 Amlodipine Besylate (Norvasc) 10 mg DAILY PO Last administered on 07/26/17 08: 46; Start 07/20/17 at 09:00 Aspirin (Aspirin Enteric Coated) 81 mg DAILY PO Last administered on 07/26/17 08:46; Start 07/20/17 at 09:00 Bisacodyl (Dulcolax Supp) 10 mg PRN ALT PRN RC CONSTIPATION; Start 07/20/17 at 07:15 Clonidine HCl (Catapres) 0.2 mg BID PO Last administered on 07/26/17 19:27; Start 07/20/17 at 09:00 Docusate Sodium (Colace) 100 mg PRN DAILY PRN PO CONSTIPATION; Start 07/20/17 at 07:15 Dorzolamide/ Timolol (Cosopt) 1 drop BID OU Last administered on 07/26/17 19:32 ; Start 07/20/17 at 09:00 Furosemide (Lasix) 20 mg DAILY PO Last administered on 07/26/17 08:46; Start at 09:00 Glipizide (Glucotrol) 5 mg BID PO Last administered on 07/26/17 19:26; Start at 09:00 Acetaminophen/ Hydrocodone Bitart (Lortab 5/325) 1 tab PRN BID PRN PO PAIN Last administered on 07/26/17 01:23; Start 07/20/17 at 07:15 Insulin Detemir (Levemir) 10 units HS SQ Last administered on 07/26/17 19:29; Start 07/20/17 at 21:00 Magnesium Hydroxide (Milk Of Magnesia) 400 mg PRN DAILY PRN PO CONSTIPATION; Start 07/20/17 at 07:15; Stop 07/21/17 at 02:10; Status DC Metformin HCl (Glucophage) 500 mg BIDWMEALS PO Last administered on 07/26/17 16 :44; Start 07/20/17 at 08:00 Prednisolone Acetate (Pred Forte) 1 drop DAILY OD Last administered on 08:45; Start 07/20/17 at 09:00 Simvastatin (Zocor) 10 mg QHS PO Last administered on 07/20/17at 19:38; Start 07/20/17 at 21:00; Stop 07/21/17 at 17:31; Status DC Non-Formulary Medication 10 ml PRN Q6HRS PRN PO COUGH; Start 07/20/17 at 07:15; Stop 07/20/17 at 08:02; Status DC Lisinopril (Prinivil) 40 mg DAILY PO Last administered on 07/26/17at 08:45; Start 07/20/17 at 09:00 Insulin Aspart (NovoLOG) 0-5 UNITS TIDBFRMEAL SQ Last administered on 07/26/17at 17:00; Start 07/20/17 at 07:30 Dextrose 12.5 gm PRN Q15MIN PRN IV SEE COMMENTS; Start 07/20/17 at 07:30 Lorazepam (Ativan) 1 mg STK-MED ONCE .ROUTE ; Start 07/19/17 at 21:04; Stop 07/20 at 08:44; Status DC Acetaminophen (Tylenol) 650 mg PRN Q6HRS PRN PO PAIN / TEMP; Start 07/20/17 at 17:15; Stop 07/20/17 at 17:15; Status DC Multi-Ingredient Ointment (Analgesic [place]) 1 geraldine PRN QID PRN TP MUSCLE PAIN; Start 07/20/17 at 17:15; Stop 07/20/17 at 17:15; Status DC Al Hydroxide/Mg Hydroxide (Mylanta Plus Xs) 15 ml PRN AFTMEALHC PRN PO DYSPEPSIA; Start 07/20/17 at 17:15; Stop 07/20/17 at 17:15; Status DC Magnesium Hydroxide (Milk Of Magnesia) 2,400 mg PRN QHS PRN PO CONSTIPATION; Start 07/20/17 at 17:15; Stop 07/20/17 at 17:15; Status DC Trazodone HCl (Desyrel) 50 mg QHS PO Last administered on 07/20/17at 19:38; Start 07/20/17 at 21:00; Stop 07/21/17 at 18:48; Status DC Trazodone HCl (Desyrel) 50 mg PRN QHS PRN PO INSOMNIA Last administered on at 00:47; Start 07/20/17 at 21:00; Stop 07/21/17 at 18:48; Status DC Vitamin D (Vitamin D3) 50,000 unit WEEKLY PO Last administered on 07/20/17at 20: 22; Start 07/20/17 at 20:00 Atorvastatin Calcium (Lipitor) 20 mg QHS PO ; Start 07/20/17 at 21:00; Stop at 21:00; Status DC Atorvastatin Calcium (Lipitor) 10 mg QHS PO Last administered on 07/23/17at 19:37 ; Start 07/21/17 at 21:00; Stop 07/24/17 at 14:27; Status DC Trazodone HCl (Desyrel) 100 mg PRN QHS PRN PO INSOMNIA Last administered on 07/23at 00:33; Start 07/21/17 at 19:00; Stop 07/23/17 at 18:46; Status DC Trazodone HCl (Desyrel) 100 mg QHS PO Last administered on 07/21/17at 19:58; Start 07/21/17 at 21:00; Stop 07/23/17 at 18:46; Status DC Mirtazapine (Remeron) 15 mg QHS PO ; Start 07/21/17 at 21:00; Stop 07/21/17 at 21: 00; Status DC Olanzapine (ZyPREXA ZYDIS) 5 mg PRN Q2HR PRN PO PSYCHOSIS Last administered on 07/22/17 22:06; Start 07/22/17 at 21:45 Amitriptyline HCl (Elavil) 50 mg QHS PO ; Start 07/23/17 at 21:00; Stop 07/23/17 at 21:00; Status DC Amitriptyline HCl (Elavil) 50 mg QHS PO Last administered on 07/26/17 19:26; Start 07/22/17 at 22:00 Risperidone (RisperDAL) 0.5 mg DAILY PO Last administered on 07/25/17 08:24; Start 07/24/17 at 09:00; Stop 07/25/17 at 18:07; Status DC Risperidone (RisperDAL) 0.5 mg ONCE ONCE PO Last administered on 07/23/17 17: 37; Start 07/23/17 at 16:30; Stop 07/23/17 at 16:42; Status DC Trazodone HCl (Desyrel) 150 mg PRN QHS PRN PO INSOMNIA Last administered on 07/26 01:23; Start 07/23/17 at 18:45 Trazodone HCl (Desyrel) 150 mg QHS PO Last administered on 07/26/17 19:25; Start 07/23/17 at 21:00 Potassium Chloride (Klor-Con) 20 meq DAILYWBKFT PO Last administered on 08:47; Start 07/25/17 at 08:00 Potassium Chloride (Klor-Con) 20 meq 1X ONCE PO Last administered on 07/24/17 14:33; Start 07/24/17 at 14:30; Stop 07/24/17 at 14:31; Status DC Atorvastatin Calcium (Lipitor) 20 mg QHS PO Last administered on 07/26/17 19:26 ; Start 07/24/17 at 21:00 Risperidone (RisperDAL) 0.75 mg DAILY PO Last administered on 07/26/17 08:48; Start 07/26/17 at 09:00 Active Scripts Active Reported Seroquel (Quetiapine Fumarate) 25 Mg Tablet 12.5 Mg PO DAILY Robitussin Nighttime Cough Dm (Dextromethorphan Hb/Doxylamine) 237 Ml Liquid 10 Ml PO PRN Q6HRS PRN Levemir Flextouch (Insulin Detemir) 100 Unit/1 Ml Insuln.pen 10 Unit SQ HS Cosopt Eye Drops (Dorzolamide Hcl/Timolol Maleat) 10 Ml Drops 1 Ml OU BID Prednisolone Acetate 5 Ml Drops.susp 1 Ml OD DAILY Alprazolam 0.25 Mg Tablet 0.25 Mg PO BID PRN Systane 0.3-0.4% Eye Drops (Propylene Glycol/Peg 400) 15 Ml Drops 15 Ml OS PRN Hydrocodone-Apap 5-325 (Hydrocodone Bit/Acetaminophen) 1 Each Tablet 2 Tab PO PRN Q6HRS PRN Docusate Sodium 100 Mg Capsule 100 Mg PO PRN DAILY PRN Hydrocodone-Apap 5-325 (Hydrocodone Bit/Acetaminophen) 1 Each Tablet 1 Tab PO BID PRN Milk Of Magnesia (Magnesium Hydroxide) 400 Mg/5 Ml Oral.susp 2,400 Mg PO PRN DAILY PRN Bisacodyl 10 Mg Supp.rect 10 Mg RC PRN ALT PRN Simvastatin 10 Mg Tablet 10 Mg PO DAILY Namenda Xr (Memantine Hcl) 28 Mg Cap.spr.24 28 Mg PO DAILY Mirtazapine 15 Mg Tablet 7.5 Mg PO Mirtazapine 15 Mg Tablet 1 Tab PO QHS Metformin Hcl 500 Mg Tablet 500 Mg PO BIDWMEALS Lisinopril 40 Mg Tablet 40 Mg PO DAILY Glipizide 5 Mg Tablet 5 Mg PO BID Furosemide 20 Mg Tablet 20 Mg PO DAILY Donepezil Hcl 10 Mg Tablet 10 Mg PO DAILY Clonidine Hcl 0.2 Mg Tablet 0.2 Mg PO BID Citalopram Hbr (Citalopram Hydrobromide) 20 Mg Tablet 20 Mg PO DAILY Buspirone Hcl 10 Mg Tablet 10 Mg PO BID Aspirin Ec (Aspirin) 81 Mg Tablet. 81 Mg PO DAILY Amlodipine Besylate 10 Mg Tablet 10 Mg PO DAILY I have reviewed the current psychotropics carefully including drug interactions. Risk benefit ratio favors no change other than as noted in my dictated progress note. Diagnosis: Problems: (1) MDD (major depressive disorder) (2) Dementia with behavioral disturbance (3) Anxiety disorder (4) Impulse control disorder (5) Psychotic depression (6) Mild cognitive impairment HECTOR PLEITEZ MD Jul 26, 2017 19:48
[2017-07-27 06:02] VITALS: BP 146/76
[2017-07-27] MEDS: ASPIRIN ENTERIC COATED 81 MG TABLET.DR. PO SCH (08:02)
[2017-07-27] MEDS: INSULIN ASPART 300 UNITS/3 ML INSULN.PEN SQ SCH ×3 (08:02→16:30)
[2017-07-27] MEDS: CITALOPRAM 20 MG TABLET. PO SCH (08:02)
[2017-07-27] MEDS: LISINOPRIL 20 MG TABLET PO SCH (08:03)
[2017-07-27] MEDS: cloNIDine HCL 0.2 MG TABLET PO SCH ×2 (08:03→19:42)
[2017-07-27] MEDS: busPIRone 10 MG TABLET. PO SCH ×2 (08:03→19:41)
[2017-07-27] MEDS: metFORMIN 500 MG TABLET PO SCH ×2 (08:03→17:19)
[2017-07-27] MEDS: CHOLECALCIFEROL (VITAMIN D3) 50,000 UNIT CAPSULE PO SCH (08:04)
[2017-07-27] MEDS: POTASSIUM CHLORIDE 20 MEQ TABLET.ER. PO SCH (08:04)
[2017-07-27] MEDS: DONEPEZIL HCL 10 MG TABLET PO SCH (08:04)
[2017-07-27] MEDS: amLODIPine BESYLATE 10 MG TABLET PO SCH (08:04)
[2017-07-27] MEDS: glipiZIDE 5 MG TABLET PO SCH ×2 (08:04→19:43)
[2017-07-27] MEDS: FUROSEMIDE 20 MG TABLET PO SCH (08:04)
[2017-07-27] MEDS: MEMANTINE 10 MG TABLET. PO SCH ×2 (08:04→19:43)
[2017-07-27] MEDS: risperiDONE 0.5 MG TABLET. PO SCH (08:06)
[2017-07-27] MEDS: prednisoLONE ACETATE 1% OPHTH SUSPENSION 5ML BOTTLE. OD SCH ×2 (08:09→09:42)
[2017-07-27] MEDS: DORZOLAMIDE/TIMOLOL 2%/0.5% OPHTH SOLUTION 10ML BOTTLE. OU SCH ×2 (09:54→19:41)
[2017-07-27 16:10] VITALS: BP 137/78
[2017-07-27] MEDS: traZODone 100 MG TABLET. PO SCH (19:42)
[2017-07-27] MEDS: ATORVASTATIN CALCIUM 20 MG TABLET PO SCH (19:43)
[2017-07-27] MEDS: AMITRIPTYLINE HCL 50 MG TABLET PO SCH (19:43)
[2017-07-27] MEDS: INSULIN DETEMIR 300 UNITS/3 ML INSULN.PEN. SQ SCH (19:44)
--- NOTE | 2017-07-27 19:44 | PDOC ---
Exam Note: [facility]ney Note: Please also refer to the separate dictated note~for this date of service dictated separately.~Patient seen individually. Discussed the patient with Nursing staff reviewed the chart.~Reviewed interim history and current functioning. Reviewed vital signs,~Labs/ Radiology~and current medications noted below. Continue current treatment with the changes noted in the dictated addendum note Assessment: Vital Signs: Vital Signs Date Time Temp Pulse Resp B/P (MAP) Pulse Ox O2 Delivery O2 Flow Rate FiO2 07/27/17 16:10 97.1 89 18 137/78 (97) 93 07/22/17 16:32 Room Air 07/21/17 15:55 95.0 I&O Intake and Output 07/27/17 07:00 Intake Total 840 ml Balance 840 ml Intake Oral 840 ml # Voids 1 # Bowel Movements 1 Labs: Laboratory Tests Test 07/27/17 07:13 07/27/17 11:35 07/27/17 15:40 07/27/17 16:25 Glucose (Fingerstick) 92 mg/dL (70-99) 165 mg/dL (70-99) H 169 mg/dL (70-99) H 155 mg/dL (70-99) H Test 07/27/17 19:13 Glucose (Fingerstick) 154 mg/dL (70-99) H Current Medications: Meds: Current Medications Lorazepam (Ativan) 0.5 mg 1X ONCE IV ; Start 07/19/17 at 21:00; Stop 07/19/17 at 21:00; Status DC Lorazepam (Ativan) 1 mg 1X ONCE PO Last administered on 07/19/17at 21:06; Start 07/19/17 at 21:00; Stop 07/19/17 at 21:04; Status DC Multi-Ingredient Ointment (Analgesic [place]) 1 geraldine PRN QID PRN TP MUSCLE PAIN; Start 07/19/17 at 21:45 Al Hydroxide/Mg Hydroxide (Mylanta Plus Xs) 15 ml PRN AFTMEALHC PRN PO DYSPEPSIA; Start 07/19/17 at 21:45 Magnesium Hydroxide (Milk Of Magnesia) 2,400 mg PRN QHS PRN PO CONSTIPATION; Start 07/19/17 at 21:45 Olanzapine (ZyPREXA ZYDIS) 2.5 mg PRN Q2HR PRN PO PSYCHOSIS Last administered on 07/22/17 20:45; Start 07/19/17 at 22:00; Stop 07/22/17 at 21:34; Status DC Alprazolam (Xanax) 0.25 mg PRN BID PRN PO ANXIETY / AGITATION Last administered on 07/22/17 20:45; Start 07/19/17 at 22:30 Buspirone HCl (Buspar) 10 mg BID PO Last administered on 07/27/17 08:03; Start 07/20/17 at 09:00 Citalopram Hydrobromide (CeleXA) 20 mg DAILY PO Last administered on 07/27/17 08:02; Start 07/20/17 at 09:00 Donepezil HCl (Aricept) 10 mg DAILY PO Last administered on 07/27/17 08:04; Start 07/20/17 at 09:00 Mirtazapine (Remeron) 15 mg QHS PO Last administered on 07/21/17 19:55; Start 07/20/17 at 21:00; Stop 07/22/17 at 21:34; Status DC Memantine (Namenda) 10 mg BID PO Last administered on 07/27/17 08:04; Start 07/20/17 at 09:00 Amlodipine Besylate (Norvasc) 10 mg DAILY PO Last administered on 07/27/17 08: 04; Start 07/20/17 at 09:00 Aspirin (Aspirin Enteric Coated) 81 mg DAILY PO Last administered on 07/27/17 08:02; Start 07/20/17 at 09:00 Bisacodyl (Dulcolax Supp) 10 mg PRN ALT PRN RC CONSTIPATION; Start 07/20/17 at 07:15 Clonidine HCl (Catapres) 0.2 mg BID PO Last administered on 07/27/17 08:03; Start 07/20/17 at 09:00 Docusate Sodium (Colace) 100 mg PRN DAILY PRN PO CONSTIPATION; Start 07/20/17 at 07:15 Dorzolamide/ Timolol (Cosopt) 1 drop BID OU Last administered on 07/27/17 09:54 ; Start 07/20/17 at 09:00 Furosemide (Lasix) 20 mg DAILY PO Last administered on 07/27/17 08:04; Start at 09:00 Glipizide (Glucotrol) 5 mg BID PO Last administered on 07/27/17 08:04; Start at 09:00 Acetaminophen/ Hydrocodone Bitart (Lortab 5/325) 1 tab PRN BID PRN PO PAIN Last administered on 07/26/17 01:23; Start 07/20/17 at 07:15 Insulin Detemir (Levemir) 10 units HS SQ Last administered on 07/26/17 19:29; Start 07/20/17 at 21:00 Magnesium Hydroxide (Milk Of Magnesia) 400 mg PRN DAILY PRN PO CONSTIPATION; Start 07/20/17 at 07:15; Stop 07/21/17 at 02:10; Status DC Metformin HCl (Glucophage) 500 mg BIDWMEALS PO Last administered on 07/27/17 17 :19; Start 07/20/17 at 08:00 Prednisolone Acetate (Pred Forte) 1 drop DAILY OD Last administered on 09:42; Start 07/20/17 at 09:00 Simvastatin (Zocor) 10 mg QHS PO Last administered on 07/20/17 19:38; Start 07/20/17 at 21:00; Stop 07/21/17 at 17:31; Status DC Non-Formulary Medication 10 ml PRN Q6HRS PRN PO COUGH; Start 07/20/17 at 07:15; Stop 07/20/17 at 08:02; Status DC Lisinopril (Prinivil) 40 mg DAILY PO Last administered on 07/27/17 08:03; Start 07/20/17 at 09:00 Insulin Aspart (NovoLOG) 0-5 UNITS TIDBFRMEAL SQ Last administered on 07/27/17 12:04; Start 07/20/17 at 07:30 Dextrose 12.5 gm PRN Q15MIN PRN IV SEE COMMENTS; Start 07/20/17 at 07:30 Lorazepam (Ativan) 1 mg STK-MED ONCE .ROUTE ; Start 07/19/17 at 21:04; Stop 07/20 at 08:44; Status DC Acetaminophen (Tylenol) 650 mg PRN Q6HRS PRN PO PAIN / TEMP; Start 07/20/17 at 17:15; Stop 07/20/17 at 17:15; Status DC Multi-Ingredient Ointment (Analgesic [place]) 1 geraldine PRN QID PRN TP MUSCLE PAIN; Start 07/20/17 at 17:15; Stop 07/20/17 at 17:15; Status DC Al Hydroxide/Mg Hydroxide (Mylanta Plus Xs) 15 ml PRN AFTMEALHC PRN PO DYSPEPSIA; Start 07/20/17 at 17:15; Stop 07/20/17 at 17:15; Status DC Magnesium Hydroxide (Milk Of Magnesia) 2,400 mg PRN QHS PRN PO CONSTIPATION; Start 07/20/17 at 17:15; Stop 07/20/17 at 17:15; Status DC Trazodone HCl (Desyrel) 50 mg QHS PO Last administered on 07/20/17at 19:38; Start 07/20/17 at 21:00; Stop 07/21/17 at 18:48; Status DC Trazodone HCl (Desyrel) 50 mg PRN QHS PRN PO INSOMNIA Last administered on at 00:47; Start 07/20/17 at 21:00; Stop 07/21/17 at 18:48; Status DC Vitamin D (Vitamin D3) 50,000 unit WEEKLY PO Last administered on 07/27/17at 08: 04; Start 07/20/17 at 20:00 Atorvastatin Calcium (Lipitor) 20 mg QHS PO ; Start 07/20/17 at 21:00; Stop at 21:00; Status DC Atorvastatin Calcium (Lipitor) 10 mg QHS PO Last administered on 07/23/17at 19:37 ; Start 07/21/17 at 21:00; Stop 07/24/17 at 14:27; Status DC Trazodone HCl (Desyrel) 100 mg PRN QHS PRN PO INSOMNIA Last administered on 07/23at 00:33; Start 07/21/17 at 19:00; Stop 07/23/17 at 18:46; Status DC Trazodone HCl (Desyrel) 100 mg QHS PO Last administered on 07/21/17at 19:58; Start 07/21/17 at 21:00; Stop 07/23/17 at 18:46; Status DC Mirtazapine (Remeron) 15 mg QHS PO ; Start 07/21/17 at 21:00; Stop 07/21/17 at 21: 00; Status DC Olanzapine (ZyPREXA ZYDIS) 5 mg PRN Q2HR PRN PO PSYCHOSIS Last administered on 07/22/17 22:06; Start 07/22/17 at 21:45 Amitriptyline HCl (Elavil) 50 mg QHS PO ; Start 07/23/17 at 21:00; Stop 07/23/17 at 21:00; Status DC Amitriptyline HCl (Elavil) 50 mg QHS PO Last administered on 07/26/17 19:26; Start 07/22/17 at 22:00 Risperidone (RisperDAL) 0.5 mg DAILY PO Last administered on 07/25/17 08:24; Start 07/24/17 at 09:00; Stop 07/25/17 at 18:07; Status DC Risperidone (RisperDAL) 0.5 mg ONCE ONCE PO Last administered on 07/23/17 17: 37; Start 07/23/17 at 16:30; Stop 07/23/17 at 16:42; Status DC Trazodone HCl (Desyrel) 150 mg PRN QHS PRN PO INSOMNIA Last administered on 07/26 01:23; Start 07/23/17 at 18:45 Trazodone HCl (Desyrel) 150 mg QHS PO Last administered on 07/26/17 19:25; Start 07/23/17 at 21:00 Potassium Chloride (Klor-Con) 20 meq DAILYWBKFT PO Last administered on 08:04; Start 07/25/17 at 08:00 Potassium Chloride (Klor-Con) 20 meq 1X ONCE PO Last administered on 07/24/17 14:33; Start 07/24/17 at 14:30; Stop 07/24/17 at 14:31; Status DC Atorvastatin Calcium (Lipitor) 20 mg QHS PO Last administered on 07/26/17 19:26 ; Start 07/24/17 at 21:00 Risperidone (RisperDAL) 0.75 mg DAILY PO Last administered on 07/27/17at 08:06; Start 07/26/17 at 09:00 Active Scripts Active Reported Seroquel (Quetiapine Fumarate) 25 Mg Tablet 12.5 Mg PO DAILY Robitussin Nighttime Cough Dm (Dextromethorphan Hb/Doxylamine) 237 Ml Liquid 10 Ml PO PRN Q6HRS PRN Levemir Flextouch (Insulin Detemir) 100 Unit/1 Ml Insuln.pen 10 Unit SQ HS Cosopt Eye Drops (Dorzolamide Hcl/Timolol Maleat) 10 Ml Drops 1 Ml OU BID Prednisolone Acetate 5 Ml Drops.susp 1 Ml OD DAILY Alprazolam 0.25 Mg Tablet 0.25 Mg PO BID PRN Systane 0.3-0.4% Eye Drops (Propylene Glycol/Peg 400) 15 Ml Drops 15 Ml OS PRN Hydrocodone-Apap 5-325 (Hydrocodone Bit/Acetaminophen) 1 Each Tablet 2 Tab PO PRN Q6HRS PRN Docusate Sodium 100 Mg Capsule 100 Mg PO PRN DAILY PRN Hydrocodone-Apap 5-325 (Hydrocodone Bit/Acetaminophen) 1 Each Tablet 1 Tab PO BID PRN Milk Of Magnesia (Magnesium Hydroxide) 400 Mg/5 Ml Oral.susp 2,400 Mg PO PRN DAILY PRN Bisacodyl 10 Mg Supp.rect 10 Mg RC PRN ALT PRN Simvastatin 10 Mg Tablet 10 Mg PO DAILY Namenda Xr (Memantine Hcl) 28 Mg Cap.spr.24 28 Mg PO DAILY Mirtazapine 15 Mg Tablet 7.5 Mg PO Mirtazapine 15 Mg Tablet 1 Tab PO QHS Metformin Hcl 500 Mg Tablet 500 Mg PO BIDWMEALS Lisinopril 40 Mg Tablet 40 Mg PO DAILY Glipizide 5 Mg Tablet 5 Mg PO BID Furosemide 20 Mg Tablet 20 Mg PO DAILY Donepezil Hcl 10 Mg Tablet 10 Mg PO DAILY Clonidine Hcl 0.2 Mg Tablet 0.2 Mg PO BID Citalopram Hbr (Citalopram Hydrobromide) 20 Mg Tablet 20 Mg PO DAILY Buspirone Hcl 10 Mg Tablet 10 Mg PO BID Aspirin Ec (Aspirin) 81 Mg Tablet.dr 81 Mg PO DAILY Amlodipine Besylate 10 Mg Tablet 10 Mg PO DAILY I have reviewed the current psychotropics carefully including drug interactions. Risk benefit ratio favors no change other than as noted in my dictated progress note. Diagnosis: Problems: (1) MDD (major depressive disorder) (2) Dementia with behavioral disturbance (3) Anxiety disorder (4) Impulse control disorder (5) Psychotic depression (6) Mild cognitive impairment HECTOR PLEITEZ MD Jul 27, 2017 19:44
[2017-07-28 06:00] VITALS: BP 135/69
[2017-07-28] MEDS: INSULIN ASPART 300 UNITS/3 ML INSULN.PEN SQ SCH ×3 (07:37→17:27)
[2017-07-28] MEDS: MEMANTINE 10 MG TABLET. PO SCH ×2 (07:50→19:38)
[2017-07-28] MEDS: amLODIPine BESYLATE 10 MG TABLET PO SCH (07:50)
[2017-07-28] MEDS: risperiDONE 0.5 MG TABLET. PO SCH (07:50)
[2017-07-28] MEDS: FUROSEMIDE 20 MG TABLET PO SCH (07:50)
[2017-07-28] MEDS: POTASSIUM CHLORIDE 20 MEQ TABLET.ER. PO SCH (07:50)
[2017-07-28] MEDS: busPIRone 10 MG TABLET. PO SCH ×2 (07:51→19:36)
[2017-07-28] MEDS: metFORMIN 500 MG TABLET PO SCH ×2 (07:52→17:28)
[2017-07-28] MEDS: cloNIDine HCL 0.2 MG TABLET PO SCH ×2 (07:52→19:36)
[2017-07-28] MEDS: CITALOPRAM 20 MG TABLET. PO SCH (07:52)
[2017-07-28] MEDS: DONEPEZIL HCL 10 MG TABLET PO SCH (07:52)
[2017-07-28] MEDS: ASPIRIN ENTERIC COATED 81 MG TABLET.DR. PO SCH (07:52)
[2017-07-28] MEDS: glipiZIDE 5 MG TABLET PO SCH ×2 (07:52→19:37)
[2017-07-28] MEDS: LISINOPRIL 20 MG TABLET PO SCH (07:52)
[2017-07-28] MEDS: DORZOLAMIDE/TIMOLOL 2%/0.5% OPHTH SOLUTION 10ML BOTTLE. OU SCH ×2 (07:53→19:36)
[2017-07-28 16:21] VITALS: BP 110/62
[2017-07-28 17:41] LABS: BACTERIA,URINE FEW /HPF (0-FEW); BILIRUBIN,URINE NEG (NEG); CLARITY,URINE CLEAR; COLOR,URINE YELLOW; GLUCOSE,URINE NEG (NEG); NITRITE,URINE NEG (NEG); RBC,URINE OCC /HPF (0-2); SQUAMOUS EPITHELIAL CELL,UR OCC /LPF; UROBILINOGEN,URINE 0.2 mg/dL (0.2 mg/dL)
[2017-07-28 17:42] LABS: HYALINE CASTS, URINE MOD /HPF
[2017-07-28] MEDS: traZODone 100 MG TABLET. PO SCH (19:37)
[2017-07-28] MEDS: AMITRIPTYLINE HCL 50 MG TABLET PO SCH (19:37)
[2017-07-28] MEDS: ATORVASTATIN CALCIUM 20 MG TABLET PO SCH (19:38)
[2017-07-28] MEDS: INSULIN DETEMIR 300 UNITS/3 ML INSULN.PEN. SQ SCH (19:39)
--- NOTE | 2017-07-28 19:48 | PDOC ---
Exam Note: [place] Note: Please also refer to the separate dictated note~for this date of service dictated separately.~Patient seen individually. Discussed the patient with Nursing staff reviewed the chart.~Reviewed interim history and current functioning. Reviewed vital signs,~Labs/ Radiology~and current medications noted below. Continue current treatment with the changes noted in the dictated addendum note Assessment: Vital Signs: Vital Signs Date Time Temp Pulse Resp B/P (MAP) Pulse Ox O2 Delivery O2 Flow Rate FiO2 07/28/17 19:36 70 110/62 07/28/17 16:21 97.1 20 96 07/22/17 16:32 Room Air I&O Intake and Output 07/28/17 07:00 Intake Total 900 ml Balance 900 ml Intake Oral 900 ml Labs: Laboratory Tests Test 07/28/17 07:17 07/28/17 12:09 07/28/17 17:05 07/28/17 17:17 Glucose (Fingerstick) 108 mg/dL (70-99) H 56 mg/dL (70-99) L 121 mg/dL (70-99) H Urine Collection Type Unknown Urine Color Yellow Urine Clarity Clear Urine pH 5.5 Urine Specific [place] 1.020 Urine Protein Neg (NEG-TRACE) Urine Glucose (UA) Neg mg/dL (NEG) Urine Ketones (Stick) Neg mg/dL (NEG) Urine Blood Neg (NEG) Urine Nitrite Neg (NEG) Urine Bilirubin Neg (NEG) Urine Urobilinogen Dipstick 0.2 mg/dL (0.2 mg/dL) Urine Leukocyte Esterase Small (NEG) Urine RBC Occ /HPF (0-2) Urine WBC 5-10 /HPF (0-4) Urine Squamous Epithelial Cells Occ /LPF Urine Bacteria Few /HPF (0-FEW) Urine Hyaline Casts Mod /HPF Urine Mucus Slight /LPF Test 07/28/17 19:16 Glucose (Fingerstick) 140 mg/dL (70-99) H Current Medications: Meds: Current Medications Lorazepam (Ativan) 0.5 mg 1X ONCE IV ; Start 07/19/17 at 21:00; Stop 07/19/17 at 21:00; Status DC Lorazepam (Ativan) 1 mg 1X ONCE PO Last administered on 07/19/17at 21:06; Start 07/19/17 at 21:00; Stop 07/19/17 at 21:04; Status DC Multi-Ingredient Ointment (Analgesic [place]) 1 geraldine PRN QID PRN TP MUSCLE PAIN; Start 07/19/17 at 21:45 Al Hydroxide/Mg Hydroxide (Mylanta Plus Xs) 15 ml PRN AFTMEALHC PRN PO DYSPEPSIA; Start 07/19/17 at 21:45 Magnesium Hydroxide (Milk Of Magnesia) 2,400 mg PRN QHS PRN PO CONSTIPATION; Start 07/19/17 at 21:45 Olanzapine (ZyPREXA ZYDIS) 2.5 mg PRN Q2HR PRN PO PSYCHOSIS Last administered on 07/22/17 20:45; Start 07/19/17 at 22:00; Stop 07/22/17 at 21:34; Status DC Alprazolam (Xanax) 0.25 mg PRN BID PRN PO ANXIETY / AGITATION Last administered on 07/22/17 20:45; Start 07/19/17 at 22:30 Buspirone HCl (Buspar) 10 mg BID PO Last administered on 07/28/17 19:36; Start 07/20/17 at 09:00 Citalopram Hydrobromide (CeleXA) 20 mg DAILY PO Last administered on 07/28/17 07:52; Start 07/20/17 at 09:00 Donepezil HCl (Aricept) 10 mg DAILY PO Last administered on 07/28/17 07:52; Start 07/20/17 at 09:00 Mirtazapine (Remeron) 15 mg QHS PO Last administered on 07/21/17 19:55; Start 07/20/17 at 21:00; Stop 07/22/17 at 21:34; Status DC Memantine (Namenda) 10 mg BID PO Last administered on 07/28/17 19:38; Start 07/20/17 at 09:00 Amlodipine Besylate (Norvasc) 10 mg DAILY PO Last administered on 07/28/17 07: 50; Start 07/20/17 at 09:00 Aspirin (Aspirin Enteric Coated) 81 mg DAILY PO Last administered on 07/28/17 07:52; Start 07/20/17 at 09:00 Bisacodyl (Dulcolax Supp) 10 mg PRN ALT PRN RC CONSTIPATION; Start 07/20/17 at 07:15 Clonidine HCl (Catapres) 0.2 mg BID PO Last administered on 07/28/17 19:36; Start 07/20/17 at 09:00 Docusate Sodium (Colace) 100 mg PRN DAILY PRN PO CONSTIPATION; Start 07/20/17 at 07:15 Dorzolamide/ Timolol (Cosopt) 1 drop BID OU Last administered on 07/28/17 19:36 ; Start 07/20/17 at 09:00 Furosemide (Lasix) 20 mg DAILY PO Last administered on 07/28/17 07:50; Start at 09:00 Glipizide (Glucotrol) 5 mg BID PO Last administered on 07/28/17 19:37; Start at 09:00 Acetaminophen/ Hydrocodone Bitart (Lortab 5/325) 1 tab PRN BID PRN PO PAIN Last administered on 07/26/17 01:23; Start 07/20/17 at 07:15 Insulin Detemir (Levemir) 10 units HS SQ Last administered on 07/28/17 19:39; Start 07/20/17 at 21:00 Magnesium Hydroxide (Milk Of Magnesia) 400 mg PRN DAILY PRN PO CONSTIPATION; Start 07/20/17 at 07:15; Stop 07/21/17 at 02:10; Status DC Metformin HCl (Glucophage) 500 mg BIDWMEALS PO Last administered on 07/28/17 17 :28; Start 07/20/17 at 08:00 Prednisolone Acetate (Pred Forte) 1 drop DAILY OD Last administered on 09:42; Start 07/20/17 at 09:00 Simvastatin (Zocor) 10 mg QHS PO Last administered on 07/20/17 19:38; Start 07/20/17 at 21:00; Stop 07/21/17 at 17:31; Status DC Non-Formulary Medication 10 ml PRN Q6HRS PRN PO COUGH; Start 07/20/17 at 07:15; Stop 07/20/17 at 08:02; Status DC Lisinopril (Prinivil) 40 mg DAILY PO Last administered on 07/28/17 07:52; Start 07/20/17 at 09:00 Insulin Aspart (NovoLOG) 0-5 UNITS TIDBFRMEAL SQ Last administered on 07/27/17at 12:04; Start 07/20/17 at 07:30 Dextrose 12.5 gm PRN Q15MIN PRN IV SEE COMMENTS; Start 07/20/17 at 07:30 Lorazepam (Ativan) 1 mg STK-MED ONCE .ROUTE ; Start 07/19/17 at 21:04; Stop 07/20 at 08:44; Status DC Acetaminophen (Tylenol) 650 mg PRN Q6HRS PRN PO PAIN / TEMP; Start 07/20/17 at 17:15; Stop 07/20/17 at 17:15; Status DC Multi-Ingredient Ointment (Analgesic [place]) 1 geraldine PRN QID PRN TP MUSCLE PAIN; Start 07/20/17 at 17:15; Stop 07/20/17 at 17:15; Status DC Al Hydroxide/Mg Hydroxide (Mylanta Plus Xs) 15 ml PRN AFTMEALHC PRN PO DYSPEPSIA; Start 07/20/17 at 17:15; Stop 07/20/17 at 17:15; Status DC Magnesium Hydroxide (Milk Of Magnesia) 2,400 mg PRN QHS PRN PO CONSTIPATION; Start 07/20/17 at 17:15; Stop 07/20/17 at 17:15; Status DC Trazodone HCl (Desyrel) 50 mg QHS PO Last administered on 07/20/17at 19:38; Start 07/20/17 at 21:00; Stop 07/21/17 at 18:48; Status DC Trazodone HCl (Desyrel) 50 mg PRN QHS PRN PO INSOMNIA Last administered on at 00:47; Start 07/20/17 at 21:00; Stop 07/21/17 at 18:48; Status DC Vitamin D (Vitamin D3) 50,000 unit WEEKLY PO Last administered on 07/27/17at 08: 04; Start 07/20/17 at 20:00 Atorvastatin Calcium (Lipitor) 20 mg QHS PO ; Start 07/20/17 at 21:00; Stop at 21:00; Status DC Atorvastatin Calcium (Lipitor) 10 mg QHS PO Last administered on 07/23/17at 19:37 ; Start 07/21/17 at 21:00; Stop 07/24/17 at 14:27; Status DC Trazodone HCl (Desyrel) 100 mg PRN QHS PRN PO INSOMNIA Last administered on 07/23at 00:33; Start 07/21/17 at 19:00; Stop 07/23/17 at 18:46; Status DC Trazodone HCl (Desyrel) 100 mg QHS PO Last administered on 07/21/17at 19:58; Start 07/21/17 at 21:00; Stop 07/23/17 at 18:46; Status DC Mirtazapine (Remeron) 15 mg QHS PO ; Start 07/21/17 at 21:00; Stop 07/21/17 at 21: 00; Status DC Olanzapine (ZyPREXA ZYDIS) 5 mg PRN Q2HR PRN PO PSYCHOSIS Last administered on 07/22/17 22:06; Start 07/22/17 at 21:45 Amitriptyline HCl (Elavil) 50 mg QHS PO ; Start 07/23/17 at 21:00; Stop 07/23/17 at 21:00; Status DC Amitriptyline HCl (Elavil) 50 mg QHS PO Last administered on 07/28/17 19:37; Start 07/22/17 at 22:00 Risperidone (RisperDAL) 0.5 mg DAILY PO Last administered on 07/25/17at 08:24; Start 07/24/17 at 09:00; Stop 07/25/17 at 18:07; Status DC Risperidone (RisperDAL) 0.5 mg ONCE ONCE PO Last administered on 07/23/17at 17: 37; Start 07/23/17 at 16:30; Stop 07/23/17 at 16:42; Status DC Trazodone HCl (Desyrel) 150 mg PRN QHS PRN PO INSOMNIA Last administered on 07/26 01:23; Start 07/23/17 at 18:45 Trazodone HCl (Desyrel) 150 mg QHS PO Last administered on 07/28/17 19:37; Start 07/23/17 at 21:00 Potassium Chloride (Klor-Con) 20 meq DAILYWBKFT PO Last administered on at 07:50; Start 07/25/17 at 08:00 Potassium Chloride (Klor-Con) 20 meq 1X ONCE PO Last administered on 07/24/17at 14:33; Start 07/24/17 at 14:30; Stop 07/24/17 at 14:31; Status DC Atorvastatin Calcium (Lipitor) 20 mg QHS PO Last administered on 07/28/17at 19:38 ; Start 07/24/17 at 21:00 Risperidone (RisperDAL) 0.75 mg DAILY PO Last administered on 07/28/17at 07:50; Start 07/26/17 at 09:00 Active Scripts Active Reported Seroquel (Quetiapine Fumarate) 25 Mg Tablet 12.5 Mg PO DAILY Robitussin Nighttime Cough Dm (Dextromethorphan Hb/Doxylamine) 237 Ml Liquid 10 Ml PO PRN Q6HRS PRN Levemir Flextouch (Insulin Detemir) 100 Unit/1 Ml Insuln.pen 10 Unit SQ HS Cosopt Eye Drops (Dorzolamide Hcl/Timolol Maleat) 10 Ml Drops 1 Ml OU BID Prednisolone Acetate 5 Ml Drops.susp 1 Ml OD DAILY Alprazolam 0.25 Mg Tablet 0.25 Mg PO BID PRN Systane 0.3-0.4% Eye Drops (Propylene Glycol/Peg 400) 15 Ml Drops 15 Ml OS PRN Hydrocodone-Apap 5-325 (Hydrocodone Bit/Acetaminophen) 1 Each Tablet 2 Tab PO PRN Q6HRS PRN Docusate Sodium 100 Mg Capsule 100 Mg PO PRN DAILY PRN Hydrocodone-Apap 5-325 (Hydrocodone Bit/Acetaminophen) 1 Each Tablet 1 Tab PO BID PRN Milk Of Magnesia (Magnesium Hydroxide) 400 Mg/5 Ml Oral.susp 2,400 Mg PO PRN DAILY PRN Bisacodyl 10 Mg Supp.rect 10 Mg RC PRN ALT PRN Simvastatin 10 Mg Tablet 10 Mg PO DAILY Namenda Xr (Memantine Hcl) 28 Mg Cap.spr.24 28 Mg PO DAILY Mirtazapine 15 Mg Tablet 7.5 Mg PO Mirtazapine 15 Mg Tablet 1 Tab PO QHS Metformin Hcl 500 Mg Tablet 500 Mg PO BIDWMEALS Lisinopril 40 Mg Tablet 40 Mg PO DAILY Glipizide 5 Mg Tablet 5 Mg PO BID Furosemide 20 Mg Tablet 20 Mg PO DAILY Donepezil Hcl 10 Mg Tablet 10 Mg PO DAILY Clonidine Hcl 0.2 Mg Tablet 0.2 Mg PO BID Citalopram Hbr (Citalopram Hydrobromide) 20 Mg Tablet 20 Mg PO DAILY Buspirone Hcl 10 Mg Tablet 10 Mg PO BID Aspirin Ec (Aspirin) 81 Mg Tablet.dr 81 Mg PO DAILY Amlodipine Besylate 10 Mg Tablet 10 Mg PO DAILY I have reviewed the current psychotropics carefully including drug interactions. Risk benefit ratio favors no change other than as noted in my dictated progress note. Diagnosis: Problems: (1) MDD (major depressive disorder) (2) Dementia with behavioral disturbance (3) Anxiety disorder (4) Impulse control disorder (5) Psychotic depression (6) Mild cognitive impairment HECTOR PLEITEZ MD Jul 28, 2017 19:48
--- NOTE | 2017-07-28 19:54 | PN ---
DATE: 07/26/2017 This is a late entry, 07/26/2017, covers the elements not covered in my initial note, 07/26/2017. SUBJECTIVE: I met with the patient in her room the evening of 07/26/2017. She has been withdrawn, but did come out to the day room, watched some television, which is an improvement for her. She remains a little paranoid. REVIEW OF SYSTEMS: No CV, , pulmonary, eye, ENT system symptoms on review. MENTAL STATUS EXAM: Reasonably oriented. Speech coherent, paranoid, suspicious, sitting in the room lights turned off typical for her. Abstraction fair, computation impaired, language function intact. Mood and affect still somewhat dysphoric. LABORATORY DATA: Reviewed. IMPRESSION: Major depressive disorder with psychotic features; cognitive disorder, unspecified. PLAN: Continue current psychotropics including Risperdal, which was added and increased recently for her psychotic symptoms. HECTOR PLEITEZ MD DR: DINO/demetrio JOB#: [id number] / [id number]
--- NOTE | 2017-07-28 23:38 | PN ---
DATE: 07/27/2017 This is a late entry of 07/27/2017 covers elements not covered in my initial note of 07/27/2017. SUBJECTIVE: The patient was staffed at a treatment team meeting with the entire team morning of 07/27/2017 seen individually evening of 07/27/2017. Her daughter, Natalie attended the treatment team meeting, reviewed her history at length. Over the past several years, the patient has been more paranoid, suspicious, when family visits at the half-way. This is not her premorbid personality. She is sleeping about 3 hours average previous night, 3-1/4 hours, appetite 90%, stays withdrawn to her room, still paranoid, suspicious, agitated at times. REVIEW OF SYSTEMS: No CV, , pulmonary, eye system symptoms on review. MENTAL STATUS EXAM: Reasonably oriented. Speech is coherent, abstraction fair, computation impaired, language function intact. Attention span short. She is still somewhat paranoid. No suicidal or homicidal ideation. IMPRESSION: Major depressive disorder with psychotic features; cognitive disorder, unspecified. PLAN: Continue current psychotropics including the Risperdal 0.75 mg at bedtime. MAN Yanira PLEITEZ MD DR: DINO/demetrio JOB#: [id number] / [id number]
[2017-07-29 06:26] VITALS: BP 121/56
[2017-07-29] MEDS: INSULIN ASPART 300 UNITS/3 ML INSULN.PEN SQ SCH ×3 (08:24→16:30)
[2017-07-29] MEDS: metFORMIN 500 MG TABLET PO SCH ×2 (08:25→17:23)
[2017-07-29] MEDS: prednisoLONE ACETATE 1% OPHTH SUSPENSION 5ML BOTTLE. OD SCH (08:25)
[2017-07-29] MEDS: POTASSIUM CHLORIDE 20 MEQ TABLET.ER. PO SCH (08:25)
[2017-07-29] MEDS: DONEPEZIL HCL 10 MG TABLET PO SCH (08:26)
[2017-07-29] MEDS: DORZOLAMIDE/TIMOLOL 2%/0.5% OPHTH SOLUTION 10ML BOTTLE. OU SCH ×2 (08:26→19:23)
[2017-07-29] MEDS: ASPIRIN ENTERIC COATED 81 MG TABLET.DR. PO SCH (08:26)
[2017-07-29] MEDS: busPIRone 10 MG TABLET. PO SCH ×2 (08:26→19:24)
[2017-07-29] MEDS: CITALOPRAM 20 MG TABLET. PO SCH (08:26)
[2017-07-29] MEDS: glipiZIDE 5 MG TABLET PO SCH ×2 (08:26→19:25)
[2017-07-29 08:27] LABS: BASO % 1 % (0-3); EOS # 0.2 x10^3/uL (0.0-0.7); EOS % 2 % (0-3); HEMATOCRIT 40.8 % (36.0-47.0); HEMOGLOBIN 13.6 g/dL (12.0-15.5); LYMPH # 1.7 x10^3/uL (1.0-4.8); LYMPH % 21 % (24-48); MEAN CORPUSCULAR HEMOGLOBIN 29 pg (25-35); MEAN CORPUSCULAR HGB CONC 33 g/dL (31-37); MEAN CORPUSCULAR VOLUME 86 fL (79-100); MONO # 0.8 x10^3/uL (0.0-1.1); MONO % 9 % (0-9); NEUT # 5.4 x10^3uL (1.8-7.7); NEUT % 67 % (31-73); PLATELET COUNT 310 x10^3/uL (140-400); RED BLOOD COUNT 4.76 x10^6/uL (3.50-5.40); RED CELL DISTRIBUTION WIDTH 13.8 % (11.5-14.5); WHITE BLOOD COUNT 8.2 x10^3/uL (4.0-11.0)
[2017-07-29] MEDS: risperiDONE 0.5 MG TABLET. PO SCH (08:27)
[2017-07-29] MEDS: FUROSEMIDE 20 MG TABLET PO SCH (08:27)
[2017-07-29] MEDS: MEMANTINE 10 MG TABLET. PO SCH ×2 (08:27→19:25)
[2017-07-29 08:41] LABS: ALBUMIN 3.3 g/dL (3.4-5.0); ALBUMIN/GLOBULIN RATIO 0.8 (1.0-1.7); CALCIUM 8.7 mg/dL (8.5-10.1); CREATININE 0.9 mg/dL (0.6-1.0); GFR 62.6; POTASSIUM 3.9 mmol/L (3.5-5.1); TOTAL BILIRUBIN 0.4 mg/dL (0.2-1.0); TOTAL PROTEIN 7.3 g/dL (6.4-8.2)
[2017-07-29] MEDS: LISINOPRIL 20 MG TABLET PO SCH (09:00)
[2017-07-29] MEDS: cloNIDine HCL 0.2 MG TABLET PO SCH ×2 (09:00→19:24)
[2017-07-29] MEDS: amLODIPine BESYLATE 10 MG TABLET PO SCH (09:00)
[2017-07-29 16:10] VITALS: BP 140/73
[2017-07-29] MEDS: ATORVASTATIN CALCIUM 20 MG TABLET PO SCH (19:25)
[2017-07-29] MEDS: AMITRIPTYLINE HCL 50 MG TABLET PO SCH (19:25)
[2017-07-29] MEDS: traZODone 100 MG TABLET. PO SCH (19:25)
[2017-07-29] MEDS: INSULIN DETEMIR 300 UNITS/3 ML INSULN.PEN. SQ SCH (19:30)
--- NOTE | 2017-07-29 21:03 | PDOC ---
Exam Note: [place] Note: Please also refer to the separate dictated note~for this date of service dictated separately.~Patient seen individually. Discussed the patient with Nursing staff reviewed the chart.~Reviewed interim history and current functioning. Reviewed vital signs,~Labs/ Radiology~and current medications noted below. Continue current treatment with the changes noted in the dictated addendum note Assessment: Vital Signs: Vital Signs Date Time Temp Pulse Resp B/P (MAP) Pulse Ox O2 Delivery O2 Flow Rate FiO2 07/29/17 19:24 88 140/73 07/29/17 16:10 97.5 20 95 Room Air I&O Intake and Output 07/29/17 07:00 Intake Total 1060 ml Balance 1060 ml Intake Oral 1060 ml Labs: Laboratory Tests Test 07/29/17 07:50 07/29/17 12:08 07/29/17 17:12 07/29/17 19:28 White Blood Count 8.2 x10^3/uL (4.0-11.0) Red Blood Count 4.76 x10^6/uL (3.50-5.40) Hemoglobin 13.6 g/dL (12.0-15.5) Hematocrit 40.8 % (36.0-47.0) Mean Corpuscular Volume 86 fL (79-100) Mean Corpuscular Hemoglobin 29 pg (25-35) Mean Corpuscular Hemoglobin Concent 33 g/dL (31-37) Red Cell Distribution Width 13.8 % (11.5-14.5) Platelet Count 310 x10^3/uL (140-400) Neutrophils (%) (Auto) 67 % (31-73) Lymphocytes (%) (Auto) 21 % (24-48) L Monocytes (%) (Auto) 9 % (0-9) Eosinophils (%) (Auto) 2 % (0-3) Basophils (%) (Auto) 1 % (0-3) Neutrophils # (Auto) 5.4 x10^3uL (1.8-7.7) Lymphocytes # (Auto) 1.7 x10^3/uL (1.0-4.8) Monocytes # (Auto) 0.8 x10^3/uL (0.0-1.1) Eosinophils # (Auto) 0.2 x10^3/uL (0.0-0.7) Basophils # (Auto) 0.0 x10^3/uL (0.0-0.2) Sodium Level 139 mmol/L (136-145) Potassium Level 3.9 mmol/L (3.5-5.1) Chloride Level 104 mmol/L (98-107) Carbon Dioxide Level 26 mmol/L (21-32) Anion Gap 9 (6-14) Blood Urea Nitrogen 16 mg/dL (7-20) Creatinine 0.9 mg/dL (0.6-1.0) Estimated GFR (Cockcroft-Gault) 62.6 BUN/Creatinine Ratio 18 (6-20) Glucose Level 89 mg/dL (70-99) Glucose (Fingerstick) 86 mg/dL (70-99) 84 mg/dL (70-99) 127 mg/dL (70-99) H 187 mg/dL (70-99) H Calcium Level 8.7 mg/dL (8.5-10.1) Total Bilirubin 0.4 mg/dL (0.2-1.0) Aspartate Amino Transferase (AST) 23 U/L (15-37) Alanine Aminotransferase (ALT) 36 U/L (14-59) Alkaline Phosphatase 95 U/L (46-116) Total Protein 7.3 g/dL (6.4-8.2) Albumin 3.3 g/dL (3.4-5.0) L Albumin/Globulin Ratio 0.8 (1.0-1.7) L Current Medications: Meds: Current Medications Lorazepam (Ativan) 0.5 mg 1X ONCE IV ; Start 07/19/17 at 21:00; Stop 07/19/17 at 21:00; Status DC Lorazepam (Ativan) 1 mg 1X ONCE PO Last administered on 07/19/17at 21:06; Start 07/19/17 at 21:00; Stop 07/19/17 at 21:04; Status DC Multi-Ingredient Ointment (Analgesic [place]) 1 geraldine PRN QID PRN TP MUSCLE PAIN; Start 07/19/17 at 21:45 Al Hydroxide/Mg Hydroxide (Mylanta Plus Xs) 15 ml PRN AFTMEALHC PRN PO DYSPEPSIA; Start 07/19/17 at 21:45 Magnesium Hydroxide (Milk Of Magnesia) 2,400 mg PRN QHS PRN PO CONSTIPATION; Start 07/19/17 at 21:45 Olanzapine (ZyPREXA ZYDIS) 2.5 mg PRN Q2HR PRN PO PSYCHOSIS Last administered on 07/22/17 20:45; Start 07/19/17 at 22:00; Stop 07/22/17 at 21:34; Status DC Alprazolam (Xanax) 0.25 mg PRN BID PRN PO ANXIETY / AGITATION Last administered on 07/22/17 20:45; Start 07/19/17 at 22:30 Buspirone HCl (Buspar) 10 mg BID PO Last administered on 07/29/17 19:24; Start 07/20/17 at 09:00 Citalopram Hydrobromide (CeleXA) 20 mg DAILY PO Last administered on 07/29/17 08:26; Start 07/20/17 at 09:00 Donepezil HCl (Aricept) 10 mg DAILY PO Last administered on 07/29/17 08:26; Start 07/20/17 at 09:00 Mirtazapine (Remeron) 15 mg QHS PO Last administered on 07/21/17 19:55; Start 07/20/17 at 21:00; Stop 07/22/17 at 21:34; Status DC Memantine (Namenda) 10 mg BID PO Last administered on 07/29/17 19:25; Start at 09:00 Amlodipine Besylate (Norvasc) 10 mg DAILY PO Last administered on 07/28/17 07: 50; Start 07/20/17 at 09:00 Aspirin (Aspirin Enteric Coated) 81 mg DAILY PO Last administered on 07/29/17 08:26; Start 07/20/17 at 09:00 Bisacodyl (Dulcolax Supp) 10 mg PRN ALT PRN RC CONSTIPATION; Start 07/20/17 at 07:15 Clonidine HCl (Catapres) 0.2 mg BID PO Last administered on 07/29/17 19:24; Start 07/20/17 at 09:00 Docusate Sodium (Colace) 100 mg PRN DAILY PRN PO CONSTIPATION; Start 07/20/17 at 07:15 Dorzolamide/ Timolol (Cosopt) 1 drop BID OU Last administered on 3/10/18at 19: 23; Start 07/20/17 at 09:00 Furosemide (Lasix) 20 mg DAILY PO Last administered on 07/29/17 08:27; Start 07/20/17 at 09:00 Glipizide (Glucotrol) 5 mg BID PO Last administered on 07/29/17 19:25; Start 07/20/17 at 09:00 Acetaminophen/ Hydrocodone Bitart (Lortab 5/325) 1 tab PRN BID PRN PO PAIN Last administered on 07/26/17 01:23; Start 07/20/17 at 07:15 Insulin Detemir (Levemir) 10 units HS SQ Last administered on 07/29/17 19:30; Start 07/20/17 at 21:00 Magnesium Hydroxide (Milk Of Magnesia) 400 mg PRN DAILY PRN PO CONSTIPATION; Start 07/20/17 at 07:15; Stop 07/21/17 at 02:10; Status DC Metformin HCl (Glucophage) 500 mg BIDWMEALS PO Last administered on 07/29/17 17:23; Start 07/20/17 at 08:00 Prednisolone Acetate (Pred Forte) 1 drop DAILY OD Last administered on 08:25; Start 07/20/17 at 09:00 Simvastatin (Zocor) 10 mg QHS PO Last administered on 07/20/17at 19:38; Start 07/20/17 at 21:00; Stop 07/21/17 at 17:31; Status DC Non-Formulary Medication 10 ml PRN Q6HRS PRN PO COUGH; Start 07/20/17 at 07:15; Stop 07/20/17 at 08:02; Status DC Lisinopril (Prinivil) 40 mg DAILY PO Last administered on 07/28/17at 07:52; Start 07/20/17 at 09:00 Insulin Aspart (NovoLOG) 0-5 UNITS TIDBFRMEAL SQ Last administered on 07/27/17at 12:04; Start 07/20/17 at 07:30 Dextrose 12.5 gm PRN Q15MIN PRN IV SEE COMMENTS; Start 07/20/17 at 07:30 Lorazepam (Ativan) 1 mg STK-MED ONCE .ROUTE ; Start 07/19/17 at 21:04; Stop 07/20 at 08:44; Status DC Acetaminophen (Tylenol) 650 mg PRN Q6HRS PRN PO PAIN / TEMP; Start 07/20/17 at 17:15; Stop 07/20/17 at 17:15; Status DC Multi-Ingredient Ointment (Analgesic [place]) 1 geraldine PRN QID PRN TP MUSCLE PAIN; Start 07/20/17 at 17:15; Stop 07/20/17 at 17:15; Status DC Al Hydroxide/Mg Hydroxide (Mylanta Plus Xs) 15 ml PRN AFTMEALHC PRN PO DYSPEPSIA; Start 07/20/17 at 17:15; Stop 07/20/17 at 17:15; Status DC Magnesium Hydroxide (Milk Of Magnesia) 2,400 mg PRN QHS PRN PO CONSTIPATION; Start 07/20/17 at 17:15; Stop 07/20/17 at 17:15; Status DC Trazodone HCl (Desyrel) 50 mg QHS PO Last administered on 07/20/17at 19:38; Start 07/20/17 at 21:00; Stop 07/21/17 at 18:48; Status DC Trazodone HCl (Desyrel) 50 mg PRN QHS PRN PO INSOMNIA Last administered on at 00:47; Start 07/20/17 at 21:00; Stop 07/21/17 at 18:48; Status DC Vitamin D (Vitamin D3) 50,000 unit WEEKLY PO Last administered on 07/27/17at 08: 04; Start 07/20/17 at 20:00 Atorvastatin Calcium (Lipitor) 20 mg QHS PO ; Start 07/20/17 at 21:00; Stop at 21:00; Status DC Atorvastatin Calcium (Lipitor) 10 mg QHS PO Last administered on 07/23/17at 19:37 ; Start 07/21/17 at 21:00; Stop 07/24/17 at 14:27; Status DC Trazodone HCl (Desyrel) 100 mg PRN QHS PRN PO INSOMNIA Last administered on 07/23at 00:33; Start 07/21/17 at 19:00; Stop 07/23/17 at 18:46; Status DC Trazodone HCl (Desyrel) 100 mg QHS PO Last administered on 07/21/17at 19:58; Start 07/21/17 at 21:00; Stop 07/23/17 at 18:46; Status DC Mirtazapine (Remeron) 15 mg QHS PO ; Start 07/21/17 at 21:00; Stop 07/21/17 at 21: 00; Status DC Olanzapine (ZyPREXA ZYDIS) 5 mg PRN Q2HR PRN PO PSYCHOSIS Last administered on 07/22/17 22:06; Start 07/22/17 at 21:45 Amitriptyline HCl (Elavil) 50 mg QHS PO ; Start 07/23/17 at 21:00; Stop 07/23/17 at 21:00; Status DC Amitriptyline HCl (Elavil) 50 mg QHS PO Last administered on 07/29/17 19:25; Start 07/22/17 at 22:00 Risperidone (RisperDAL) 0.5 mg DAILY PO Last administered on 07/25/17 08:24; Start 07/24/17 at 09:00; Stop 07/25/17 at 18:07; Status DC Risperidone (RisperDAL) 0.5 mg ONCE ONCE PO Last administered on 07/23/17 17: 37; Start 07/23/17 at 16:30; Stop 07/23/17 at 16:42; Status DC Trazodone HCl (Desyrel) 150 mg PRN QHS PRN PO INSOMNIA Last administered on 07/26 01:23; Start 07/23/17 at 18:45 Trazodone HCl (Desyrel) 150 mg QHS PO Last administered on 07/29/17 19:25; Start 07/23/17 at 21:00 Potassium Chloride (Klor-Con) 20 meq DAILYWBKFT PO Last administered on 08:25; Start 07/25/17 at 08:00 Potassium Chloride (Klor-Con) 20 meq 1X ONCE PO Last administered on 07/24/17at 14:33; Start 07/24/17 at 14:30; Stop 07/24/17 at 14:31; Status DC Atorvastatin Calcium (Lipitor) 20 mg QHS PO Last administered on 07/29/17 19: 25; Start 07/24/17 at 21:00 Risperidone (RisperDAL) 0.75 mg DAILY PO Last administered on 07/29/17at 08:27; Start 07/26/17 at 09:00 Active Scripts Active Reported Seroquel (Quetiapine Fumarate) 25 Mg Tablet 12.5 Mg PO DAILY Robitussin Nighttime Cough Dm (Dextromethorphan Hb/Doxylamine) 237 Ml Liquid 10 Ml PO PRN Q6HRS PRN Levemir Flextouch (Insulin Detemir) 100 Unit/1 Ml Insuln.pen 10 Unit SQ HS Cosopt Eye Drops (Dorzolamide Hcl/Timolol Maleat) 10 Ml Drops 1 Ml OU BID Prednisolone Acetate 5 Ml Drops.susp 1 Ml OD DAILY Alprazolam 0.25 Mg Tablet 0.25 Mg PO BID PRN Systane 0.3-0.4% Eye Drops (Propylene Glycol/Peg 400) 15 Ml Drops 15 Ml OS PRN Hydrocodone-Apap 5-325 (Hydrocodone Bit/Acetaminophen) 1 Each Tablet 2 Tab PO PRN Q6HRS PRN Docusate Sodium 100 Mg Capsule 100 Mg PO PRN DAILY PRN Hydrocodone-Apap 5-325 (Hydrocodone Bit/Acetaminophen) 1 Each Tablet 1 Tab PO BID PRN Milk Of Magnesia (Magnesium Hydroxide) 400 Mg/5 Ml Oral.susp 2,400 Mg PO PRN DAILY PRN Bisacodyl 10 Mg Supp.rect 10 Mg RC PRN ALT PRN Simvastatin 10 Mg Tablet 10 Mg PO DAILY Namenda Xr (Memantine Hcl) 28 Mg Cap.spr.24 28 Mg PO DAILY Mirtazapine 15 Mg Tablet 7.5 Mg PO Mirtazapine 15 Mg Tablet 1 Tab PO QHS Metformin Hcl 500 Mg Tablet 500 Mg PO BIDWMEALS Lisinopril 40 Mg Tablet 40 Mg PO DAILY Glipizide 5 Mg Tablet 5 Mg PO BID Furosemide 20 Mg Tablet 20 Mg PO DAILY Donepezil Hcl 10 Mg Tablet 10 Mg PO DAILY Clonidine Hcl 0.2 Mg Tablet 0.2 Mg PO BID Citalopram Hbr (Citalopram Hydrobromide) 20 Mg Tablet 20 Mg PO DAILY Buspirone Hcl 10 Mg Tablet 10 Mg PO BID Aspirin Ec (Aspirin) 81 Mg Tablet.dr 81 Mg PO DAILY Amlodipine Besylate 10 Mg Tablet 10 Mg PO DAILY I have reviewed the current psychotropics carefully including drug interactions. Risk benefit ratio favors no change other than as noted in my dictated progress note. Diagnosis: Problems: (1) MDD (major depressive disorder) (2) Dementia with behavioral disturbance (3) Anxiety disorder (4) Impulse control disorder (5) Psychotic depression (6) Mild cognitive impairment HECTOR PLEITEZ MD Jul 29, 2017 21:03
[2017-07-30 05:59] VITALS: BP 149/84
[2017-07-30] MEDS: INSULIN ASPART 300 UNITS/3 ML INSULN.PEN SQ SCH ×4 (08:56→17:02)
[2017-07-30] MEDS: DORZOLAMIDE/TIMOLOL 2%/0.5% OPHTH SOLUTION 10ML BOTTLE. OU SCH ×2 (08:57→19:40)
[2017-07-30] MEDS: POTASSIUM CHLORIDE 20 MEQ TABLET.ER. PO SCH (08:57)
[2017-07-30] MEDS: metFORMIN 500 MG TABLET PO SCH ×2 (08:57→17:03)
[2017-07-30] MEDS: DONEPEZIL HCL 10 MG TABLET PO SCH (08:58)
[2017-07-30] MEDS: busPIRone 10 MG TABLET. PO SCH ×2 (08:58→19:40)
[2017-07-30] MEDS: ASPIRIN ENTERIC COATED 81 MG TABLET.DR. PO SCH (08:58)
[2017-07-30] MEDS: prednisoLONE ACETATE 1% OPHTH SUSPENSION 5ML BOTTLE. OD SCH (08:58)
[2017-07-30] MEDS: glipiZIDE 5 MG TABLET PO SCH ×2 (08:59→19:39)
[2017-07-30] MEDS: MEMANTINE 10 MG TABLET. PO SCH ×2 (08:59→19:39)
[2017-07-30] MEDS: FUROSEMIDE 20 MG TABLET PO SCH (08:59)
[2017-07-30] MEDS: cloNIDine HCL 0.2 MG TABLET PO SCH ×2 (08:59→19:40)
[2017-07-30] MEDS: CITALOPRAM 20 MG TABLET. PO SCH (08:59)
[2017-07-30] MEDS: amLODIPine BESYLATE 10 MG TABLET PO SCH (09:00)
[2017-07-30] MEDS: risperiDONE 0.5 MG TABLET. PO SCH (09:00)
[2017-07-30] MEDS: LISINOPRIL 20 MG TABLET PO SCH (09:00)
--- NOTE | 2017-07-30 09:33 | PN ---
DATE: 07/28/2017 This is a late entry 07/28/2017 covers elements not covered in my initial note 07/28/2017. Met with the patient in the evening of 07/28/2017 where she has been somewhat withdrawn but less psychotic, paranoid, does come out more for groups which is an improvement. UA, C and S was negative. REVIEW OF SYSTEMS: No CV, , pulmonary, eye, ENT system symptoms on review. MENTAL STATUS EXAM: The patient is reasonably oriented. Speech has some latency, coherent. Abstraction fair, computation impaired, language function intact, attention span fair. Mood and affect showing improvement. IMPRESSION: Unchanged from initial note. PLAN: Continue current psychotropics, may need to increase Risperdal in due course and consider changing Celexa to Cymbalta. MAN Yanira PLEITEZ MD DR: DINO/demetrio JOB#: [id number] / [id number]
[2017-07-30] MEDS: AMOXICILLIN 250 MG CAPSULE PO SCH ×2 (14:14→19:44)
[2017-07-30 16:08] VITALS: BP 113/67
--- NOTE | 2017-07-30 18:30 | PN ---
DATE: 07/29/2017 This is a late entry for 07/29/2017 and covers the elements not covered in my initial note of 07/29/2017. SUBJECTIVE: I met with the patient in the evening of 07/29/2017 in her room. She remains somewhat withdrawn, little paranoid, but less so than before, more cooperative with medications and assessments. REVIEW OF SYSTEMS: No CV, , pulmonary, eye, ENT system symptoms on review. Gait unsteady with walker. MENTAL STATUS EXAM: Oriented to herself and situation. Speech is coherent, abstraction fair, computation impaired, language function intact, attention span short, mood and affect somewhat withdrawn, but less psychotic. LABORATORY DATA: Reviewed. IMPRESSION: Unchanged from initial note. PLAN: Continue psychotropics mentioned in my initial note, may increase Risperdal if needed. MAN Yanira PLEITEZ MD DR: DINO/demetrio JOB#: [id number] / [id number]
[2017-07-30] MEDS: AMITRIPTYLINE HCL 50 MG TABLET PO SCH (19:39)
[2017-07-30] MEDS: ATORVASTATIN CALCIUM 20 MG TABLET PO SCH (19:40)
[2017-07-30] MEDS: traZODone 100 MG TABLET. PO SCH (19:40)
[2017-07-30] MEDS: LACTOBACILLUS RHAMNOSUS GG 1 CAPSULE. PO SCH (19:44)
[2017-07-30] MEDS: INSULIN DETEMIR 300 UNITS/3 ML INSULN.PEN. SQ SCH (19:45)
--- NOTE | 2017-07-30 20:59 | PDOC ---
Exam Note: [place] Note: Please also refer to the separate dictated note~for this date of service dictated separately.~Patient seen individually. Discussed the patient with Nursing staff reviewed the chart.~Reviewed interim history and current functioning. Reviewed vital signs,~Labs/ Radiology~and current medications noted below. Continue current treatment with the changes noted in the dictated addendum note Assessment: Vital Signs: Vital Signs Date Time Temp Pulse Resp B/P (MAP) Pulse Ox O2 Delivery O2 Flow Rate FiO2 07/30/17 19:40 86 113/67 07/30/17 16:08 98.3 20 94 07/29/17 16:10 Room Air I&O Intake and Output 07/30/17 07:00 Intake Total 660 ml Balance 660 ml Intake Oral 660 ml Labs: Laboratory Tests Test 07/30/17 07:39 07/30/17 11:51 07/30/17 16:38 07/30/17 19:11 Glucose (Fingerstick) 103 mg/dL (70-99) H 152 mg/dL (70-99) H 179 mg/dL (70-99) H 131 mg/dL (70-99) H Current Medications: Meds: Current Medications Lorazepam (Ativan) 0.5 mg 1X ONCE IV ; Start 07/19/17 at 21:00; Stop 07/19/17 at 21:00; Status DC Lorazepam (Ativan) 1 mg 1X ONCE PO Last administered on 07/19/17at 21:06; Start 07/19/17 at 21:00; Stop 07/19/17 at 21:04; Status DC Multi-Ingredient Ointment (Analgesic [place]) 1 geraldine PRN QID PRN TP MUSCLE PAIN; Start 07/19/17 at 21:45 Al Hydroxide/Mg Hydroxide (Mylanta Plus Xs) 15 ml PRN AFTMEALHC PRN PO DYSPEPSIA; Start 07/19/17 at 21:45 Magnesium Hydroxide (Milk Of Magnesia) 2,400 mg PRN QHS PRN PO CONSTIPATION; Start 07/19/17 at 21:45 Olanzapine (ZyPREXA ZYDIS) 2.5 mg PRN Q2HR PRN PO PSYCHOSIS Last administered on 07/22/17at 20:45; Start 07/19/17 at 22:00; Stop 07/22/17 at 21:34; Status DC Alprazolam (Xanax) 0.25 mg PRN BID PRN PO ANXIETY / AGITATION Last administered on 07/22/17 20:45; Start 07/19/17 at 22:30 Buspirone HCl (Buspar) 10 mg BID PO Last administered on 07/30/17 19:40; Start 07/20/17 at 09:00 Citalopram Hydrobromide (CeleXA) 20 mg DAILY PO Last administered on 07/30/17 08:59; Start 07/20/17 at 09:00 Donepezil HCl (Aricept) 10 mg DAILY PO Last administered on 07/30/17 08:58; Start 07/20/17 at 09:00 Mirtazapine (Remeron) 15 mg QHS PO Last administered on 07/21/17 19:55; Start 07/20/17 at 21:00; Stop 07/22/17 at 21:34; Status DC Memantine (Namenda) 10 mg BID PO Last administered on 07/30/17 19:39; Start at 09:00 Amlodipine Besylate (Norvasc) 10 mg DAILY PO Last administered on 07/30/17 09: 00; Start 07/20/17 at 09:00 Aspirin (Aspirin Enteric Coated) 81 mg DAILY PO Last administered on 07/30/17 08:58; Start 07/20/17 at 09:00 Bisacodyl (Dulcolax Supp) 10 mg PRN ALT PRN RC CONSTIPATION; Start 07/20/17 at 07:15 Clonidine HCl (Catapres) 0.2 mg BID PO Last administered on 07/30/17 19:40; Start 07/20/17 at 09:00 Docusate Sodium (Colace) 100 mg PRN DAILY PRN PO CONSTIPATION; Start 07/20/17 at 07:15 Dorzolamide/ Timolol (Cosopt) 1 drop BID OU Last administered on 07/30/17 19: 40; Start 07/20/17 at 09:00 Furosemide (Lasix) 20 mg DAILY PO Last administered on 07/30/17 08:59; Start 07/20/17 at 09:00 Glipizide (Glucotrol) 5 mg BID PO Last administered on 07/30/17 19:39; Start 07/20/17 at 09:00 Acetaminophen/ Hydrocodone Bitart (Lortab 5/325) 1 tab PRN BID PRN PO PAIN Last administered on 07/26/17at 01:23; Start 07/20/17 at 07:15 Insulin Detemir (Levemir) 10 units HS SQ Last administered on 07/30/17at 19:45; Start 07/20/17 at 21:00 Magnesium Hydroxide (Milk Of Magnesia) 400 mg PRN DAILY PRN PO CONSTIPATION; Start 07/20/17 at 07:15; Stop 07/21/17 at 02:10; Status DC Metformin HCl (Glucophage) 500 mg BIDWMEALS PO Last administered on 07/30/17 17:03; Start 07/20/17 at 08:00 Prednisolone Acetate (Pred Forte) 1 drop DAILY OD Last administered on at 08:58; Start 07/20/17 at 09:00 Simvastatin (Zocor) 10 mg QHS PO Last administered on 07/20/17at 19:38; Start 07/20/17 at 21:00; Stop 07/21/17 at 17:31; Status DC Non-Formulary Medication 10 ml PRN Q6HRS PRN PO COUGH; Start 07/20/17 at 07:15; Stop 07/20/17 at 08:02; Status DC Lisinopril (Prinivil) 40 mg DAILY PO Last administered on 07/30/17at 09:00; Start 07/20/17 at 09:00 Insulin Aspart (NovoLOG) 0-5 UNITS TIDBFRMEAL SQ Last administered on at 17:02; Start 07/20/17 at 07:30 Dextrose 12.5 gm PRN Q15MIN PRN IV SEE COMMENTS; Start 07/20/17 at 07:30 Lorazepam (Ativan) 1 mg STK-MED ONCE .ROUTE ; Start 07/19/17 at 21:04; Stop 07/20 at 08:44; Status DC Acetaminophen (Tylenol) 650 mg PRN Q6HRS PRN PO PAIN / TEMP; Start 07/20/17 at 17:15; Stop 07/20/17 at 17:15; Status DC Multi-Ingredient Ointment (Analgesic [place]) 1 geraldine PRN QID PRN TP MUSCLE PAIN; Start 07/20/17 at 17:15; Stop 07/20/17 at 17:15; Status DC Al Hydroxide/Mg Hydroxide (Mylanta Plus Xs) 15 ml PRN AFTMEALHC PRN PO DYSPEPSIA; Start 07/20/17 at 17:15; Stop 07/20/17 at 17:15; Status DC Magnesium Hydroxide (Milk Of Magnesia) 2,400 mg PRN QHS PRN PO CONSTIPATION; Start 07/20/17 at 17:15; Stop 07/20/17 at 17:15; Status DC Trazodone HCl (Desyrel) 50 mg QHS PO Last administered on 07/20/17at 19:38; Start 07/20/17 at 21:00; Stop 07/21/17 at 18:48; Status DC Trazodone HCl (Desyrel) 50 mg PRN QHS PRN PO INSOMNIA Last administered on at 00:47; Start 07/20/17 at 21:00; Stop 07/21/17 at 18:48; Status DC Vitamin D (Vitamin D3) 50,000 unit WEEKLY PO Last administered on 07/27/17at 08: 04; Start 07/20/17 at 20:00 Atorvastatin Calcium (Lipitor) 20 mg QHS PO ; Start 07/20/17 at 21:00; Stop at 21:00; Status DC Atorvastatin Calcium (Lipitor) 10 mg QHS PO Last administered on 07/23/17at 19:37 ; Start 07/21/17 at 21:00; Stop 07/24/17 at 14:27; Status DC Trazodone HCl (Desyrel) 100 mg PRN QHS PRN PO INSOMNIA Last administered on 07/23at 00:33; Start 07/21/17 at 19:00; Stop 07/23/17 at 18:46; Status DC Trazodone HCl (Desyrel) 100 mg QHS PO Last administered on 07/21/17at 19:58; Start 07/21/17 at 21:00; Stop 07/23/17 at 18:46; Status DC Mirtazapine (Remeron) 15 mg QHS PO ; Start 07/21/17 at 21:00; Stop 07/21/17 at 21: 00; Status DC Olanzapine (ZyPREXA ZYDIS) 5 mg PRN Q2HR PRN PO PSYCHOSIS Last administered on 07/22/17 22:06; Start 07/22/17 at 21:45 Amitriptyline HCl (Elavil) 50 mg QHS PO ; Start 07/23/17 at 21:00; Stop 07/23/17 at 21:00; Status DC Amitriptyline HCl (Elavil) 50 mg QHS PO Last administered on 07/30/17at 19:39; Start 07/22/17 at 22:00 Risperidone (RisperDAL) 0.5 mg DAILY PO Last administered on 07/25/17 08:24; Start 07/24/17 at 09:00; Stop 07/25/17 at 18:07; Status DC Risperidone (RisperDAL) 0.5 mg ONCE ONCE PO Last administered on 07/23/17 17: 37; Start 07/23/17 at 16:30; Stop 07/23/17 at 16:42; Status DC Trazodone HCl (Desyrel) 150 mg PRN QHS PRN PO INSOMNIA Last administered on 07/26 01:23; Start 07/23/17 at 18:45 Trazodone HCl (Desyrel) 150 mg QHS PO Last administered on 07/30/17 19:40; Start 07/23/17 at 21:00 Potassium Chloride (Klor-Con) 20 meq DAILYWBKFT PO Last administered on at 08:57; Start 07/25/17 at 08:00 Potassium Chloride (Klor-Con) 20 meq 1X ONCE PO Last administered on 07/24/17 14:33; Start 07/24/17 at 14:30; Stop 07/24/17 at 14:31; Status DC Atorvastatin Calcium (Lipitor) 20 mg QHS PO Last administered on 07/30/17 19: 40; Start 07/24/17 at 21:00 Risperidone (RisperDAL) 0.75 mg DAILY PO Last administered on 07/30/17at 09:00; Start 07/26/17 at 09:00 Amoxicillin (Amoxil) 250 mg [id number] PO Last administered on 07/30/17 19:44; Start 07/30/17 at 14:00; Stop 08/06/17 at 13:59 Lactobacillus Rhamnosus (Culturelle) 1 cap BID PO Last administered on at 19:44; Start 07/30/17 at 21:00; Stop 08/09/17 at 20:59 Active Scripts Active Reported Seroquel (Quetiapine Fumarate) 25 Mg Tablet 12.5 Mg PO DAILY Robitussin Nighttime Cough Dm (Dextromethorphan Hb/Doxylamine) 237 Ml Liquid 10 Ml PO PRN Q6HRS PRN Levemir Flextouch (Insulin Detemir) 100 Unit/1 Ml Insuln.pen 10 Unit SQ HS Cosopt Eye Drops (Dorzolamide Hcl/Timolol Maleat) 10 Ml Drops 1 Ml OU BID Prednisolone Acetate 5 Ml Drops.susp 1 Ml OD DAILY Alprazolam 0.25 Mg Tablet 0.25 Mg PO BID PRN Systane 0.3-0.4% Eye Drops (Propylene Glycol/Peg 400) 15 Ml Drops 15 Ml OS PRN Hydrocodone-Apap 5-325 (Hydrocodone Bit/Acetaminophen) 1 Each Tablet 2 Tab PO PRN Q6HRS PRN Docusate Sodium 100 Mg Capsule 100 Mg PO PRN DAILY PRN Hydrocodone-Apap 5-325 (Hydrocodone Bit/Acetaminophen) 1 Each Tablet 1 Tab PO BID PRN Milk Of Magnesia (Magnesium Hydroxide) 400 Mg/5 Ml Oral.susp 2,400 Mg PO PRN DAILY PRN Bisacodyl 10 Mg Supp.rect 10 Mg RC PRN ALT PRN Simvastatin 10 Mg Tablet 10 Mg PO DAILY Namenda Xr (Memantine Hcl) 28 Mg Cap.spr.24 28 Mg PO DAILY Mirtazapine 15 Mg Tablet 7.5 Mg PO Mirtazapine 15 Mg Tablet 1 Tab PO QHS Metformin Hcl 500 Mg Tablet 500 Mg PO BIDWMEALS Lisinopril 40 Mg Tablet 40 Mg PO DAILY Glipizide 5 Mg Tablet 5 Mg PO BID Furosemide 20 Mg Tablet 20 Mg PO DAILY Donepezil Hcl 10 Mg Tablet 10 Mg PO DAILY Clonidine Hcl 0.2 Mg Tablet 0.2 Mg PO BID Citalopram Hbr (Citalopram Hydrobromide) 20 Mg Tablet 20 Mg PO DAILY Buspirone Hcl 10 Mg Tablet 10 Mg PO BID Aspirin Ec (Aspirin) 81 Mg Tablet.dr 81 Mg PO DAILY Amlodipine Besylate 10 Mg Tablet 10 Mg PO DAILY I have reviewed the current psychotropics carefully including drug interactions. Risk benefit ratio favors no change other than as noted in my dictated progress note. Diagnosis: Problems: (1) MDD (major depressive disorder) (2) Dementia with behavioral disturbance (3) Anxiety disorder (4) Impulse control disorder (5) Psychotic depression (6) Mild cognitive impairment HECTOR PLEITEZ MD Jul 30, 2017 20:59
[2017-07-31 05:38] VITALS: BP 111/74
[2017-07-31] MEDS: INSULIN ASPART 300 UNITS/3 ML INSULN.PEN SQ SCH ×3 (07:30→16:30)
[2017-07-31] MEDS: LISINOPRIL 20 MG TABLET PO SCH (08:31)
[2017-07-31] MEDS: LACTOBACILLUS RHAMNOSUS GG 1 CAPSULE. PO SCH ×2 (08:32→20:41)
[2017-07-31] MEDS: CITALOPRAM 20 MG TABLET. PO SCH (08:32)
[2017-07-31] MEDS: POTASSIUM CHLORIDE 20 MEQ TABLET.ER. PO SCH (08:32)
[2017-07-31] MEDS: glipiZIDE 5 MG TABLET PO SCH ×2 (08:32→20:42)
[2017-07-31] MEDS: FUROSEMIDE 20 MG TABLET PO SCH (08:32)
[2017-07-31] MEDS: amLODIPine BESYLATE 10 MG TABLET PO SCH (08:32)
[2017-07-31] MEDS: metFORMIN 500 MG TABLET PO SCH ×2 (08:32→17:24)
[2017-07-31] MEDS: AMOXICILLIN 250 MG CAPSULE PO SCH ×3 (08:32→20:42)
[2017-07-31] MEDS: DONEPEZIL HCL 10 MG TABLET PO SCH (08:32)
[2017-07-31] MEDS: busPIRone 10 MG TABLET. PO SCH ×2 (08:32→20:42)
[2017-07-31] MEDS: cloNIDine HCL 0.2 MG TABLET PO SCH ×2 (08:33→20:57)
[2017-07-31] MEDS: ASPIRIN ENTERIC COATED 81 MG TABLET.DR. PO SCH (08:33)
[2017-07-31] MEDS: risperiDONE 0.5 MG TABLET. PO SCH (08:34)
[2017-07-31] MEDS: MEMANTINE 10 MG TABLET. PO SCH ×2 (08:35→20:41)
[2017-07-31] MEDS: prednisoLONE ACETATE 1% OPHTH SUSPENSION 5ML BOTTLE. OD SCH (08:36)
[2017-07-31] MEDS: DORZOLAMIDE/TIMOLOL 2%/0.5% OPHTH SOLUTION 10ML BOTTLE. OU SCH ×2 (08:36→20:58)
[2017-07-31 16:03] VITALS: BP 133/52
[2017-07-31] MEDS ORDERED: MELATONIN 3 MG TABLET PO PRN (18:15)
--- NOTE | 2017-07-31 20:23 | PDOC ---
Exam Note: [facility]ney Note: Please also refer to the separate dictated note~for this date of service dictated separately.~Patient seen individually. Discussed the patient with Nursing staff reviewed the chart.~Reviewed interim history and current functioning. Reviewed vital signs,~Labs/ Radiology~and current medications noted below. Continue current treatment with the changes noted in the dictated addendum note Assessment: Vital Signs: Vital Signs Date Time Temp Pulse Resp B/P (MAP) Pulse Ox O2 Delivery O2 Flow Rate FiO2 07/31/17 16:03 97.9 86 18 133/52 (79) 97 07/29/17 16:10 Room Air I&O Intake and Output 07/31/17 07:00 Intake Total 480 ml Balance 480 ml Intake Oral 480 ml Labs: Laboratory Tests Test 07/31/17 07:32 07/31/17 11:44 07/31/17 16:55 07/31/17 19:28 Glucose (Fingerstick) 74 mg/dL (70-99) 79 mg/dL (70-99) 119 mg/dL (70-99) H 172 mg/dL (70-99) H Current Medications: Meds: Current Medications Lorazepam (Ativan) 0.5 mg 1X ONCE IV ; Start 07/19/17 at 21:00; Stop 07/19/17 at 21:00; Status DC Lorazepam (Ativan) 1 mg 1X ONCE PO Last administered on 07/19/17at 21:06; Start 07/19/17 at 21:00; Stop 07/19/17 at 21:04; Status DC Multi-Ingredient Ointment (Analgesic [place]) 1 geraldine PRN QID PRN TP MUSCLE PAIN; Start 07/19/17 at 21:45 Al Hydroxide/Mg Hydroxide (Mylanta Plus Xs) 15 ml PRN AFTMEALHC PRN PO DYSPEPSIA; Start 07/19/17 at 21:45 Magnesium Hydroxide (Milk Of Magnesia) 2,400 mg PRN QHS PRN PO CONSTIPATION; Start 07/19/17 at 21:45 Olanzapine (ZyPREXA ZYDIS) 2.5 mg PRN Q2HR PRN PO PSYCHOSIS Last administered on 07/22/17at 20:45; Start 07/19/17 at 22:00; Stop 07/22/17 at 21:34; Status DC Alprazolam (Xanax) 0.25 mg PRN BID PRN PO ANXIETY / AGITATION Last administered on 07/22/17 20:45; Start 07/19/17 at 22:30 Buspirone HCl (Buspar) 10 mg BID PO Last administered on 07/31/17 08:32; Start 07/20/17 at 09:00 Citalopram Hydrobromide (CeleXA) 20 mg DAILY PO Last administered on 07/31/17 08:32; Start 07/20/17 at 09:00 Donepezil HCl (Aricept) 10 mg DAILY PO Last administered on 07/31/17 08:32; Start 07/20/17 at 09:00 Mirtazapine (Remeron) 15 mg QHS PO Last administered on 07/21/17 19:55; Start 07/20/17 at 21:00; Stop 07/22/17 at 21:34; Status DC Memantine (Namenda) 10 mg BID PO Last administered on 07/31/17 08:35; Start at 09:00 Amlodipine Besylate (Norvasc) 10 mg DAILY PO Last administered on 07/31/17 08: 32; Start 07/20/17 at 09:00 Aspirin (Aspirin Enteric Coated) 81 mg DAILY PO Last administered on 07/31/17 08:33; Start 07/20/17 at 09:00 Bisacodyl (Dulcolax Supp) 10 mg PRN ALT PRN RC CONSTIPATION; Start 07/20/17 at 07:15 Clonidine HCl (Catapres) 0.2 mg BID PO Last administered on 07/31/17 08:33; Start 07/20/17 at 09:00 Docusate Sodium (Colace) 100 mg PRN DAILY PRN PO CONSTIPATION; Start 07/20/17 at 07:15 Dorzolamide/ Timolol (Cosopt) 1 drop BID OU Last administered on 07/31/17 08: 36; Start 07/20/17 at 09:00 Furosemide (Lasix) 20 mg DAILY PO Last administered on 07/31/17 08:32; Start 07/20/17 at 09:00 Glipizide (Glucotrol) 5 mg BID PO Last administered on 07/31/17 08:32; Start 07/20/17 at 09:00 Acetaminophen/ Hydrocodone Bitart (Lortab 5/325) 1 tab PRN BID PRN PO PAIN Last administered on 07/26/17at 01:23; Start 07/20/17 at 07:15 Insulin Detemir (Levemir) 10 units HS SQ Last administered on 07/30/17at 19:45; Start 07/20/17 at 21:00 Magnesium Hydroxide (Milk Of Magnesia) 400 mg PRN DAILY PRN PO CONSTIPATION; Start 07/20/17 at 07:15; Stop 07/21/17 at 02:10; Status DC Metformin HCl (Glucophage) 500 mg BIDWMEALS PO Last administered on 07/31/17at 17:24; Start 07/20/17 at 08:00 Prednisolone Acetate (Pred Forte) 1 drop DAILY OD Last administered on at 08:36; Start 07/20/17 at 09:00 Simvastatin (Zocor) 10 mg QHS PO Last administered on 07/20/17at 19:38; Start 07/20/17 at 21:00; Stop 07/21/17 at 17:31; Status DC Non-Formulary Medication 10 ml PRN Q6HRS PRN PO COUGH; Start 07/20/17 at 07:15; Stop 07/20/17 at 08:02; Status DC Lisinopril (Prinivil) 40 mg DAILY PO Last administered on 07/31/17at 08:31; Start 07/20/17 at 09:00 Insulin Aspart (NovoLOG) 0-5 UNITS TIDBFRMEAL SQ Last administered on at 17:02; Start 07/20/17 at 07:30 Dextrose 12.5 gm PRN Q15MIN PRN IV SEE COMMENTS; Start 07/20/17 at 07:30 Lorazepam (Ativan) 1 mg STK-MED ONCE .ROUTE ; Start 07/19/17 at 21:04; Stop 07/20 at 08:44; Status DC Acetaminophen (Tylenol) 650 mg PRN Q6HRS PRN PO PAIN / TEMP; Start 07/20/17 at 17:15; Stop 07/20/17 at 17:15; Status DC Multi-Ingredient Ointment (Analgesic [place]) 1 geraldine PRN QID PRN TP MUSCLE PAIN; Start 07/20/17 at 17:15; Stop 07/20/17 at 17:15; Status DC Al Hydroxide/Mg Hydroxide (Mylanta Plus Xs) 15 ml PRN AFTMEALHC PRN PO DYSPEPSIA; Start 07/20/17 at 17:15; Stop 07/20/17 at 17:15; Status DC Magnesium Hydroxide (Milk Of Magnesia) 2,400 mg PRN QHS PRN PO CONSTIPATION; Start 07/20/17 at 17:15; Stop 07/20/17 at 17:15; Status DC Trazodone HCl (Desyrel) 50 mg QHS PO Last administered on 07/20/17at 19:38; Start 07/20/17 at 21:00; Stop 07/21/17 at 18:48; Status DC Trazodone HCl (Desyrel) 50 mg PRN QHS PRN PO INSOMNIA Last administered on at 00:47; Start 07/20/17 at 21:00; Stop 07/21/17 at 18:48; Status DC Vitamin D (Vitamin D3) 50,000 unit WEEKLY PO Last administered on 07/27/17at 08: 04; Start 07/20/17 at 20:00 Atorvastatin Calcium (Lipitor) 20 mg QHS PO ; Start 07/20/17 at 21:00; Stop at 21:00; Status DC Atorvastatin Calcium (Lipitor) 10 mg QHS PO Last administered on 07/23/17at 19:37 ; Start 07/21/17 at 21:00; Stop 07/24/17 at 14:27; Status DC Trazodone HCl (Desyrel) 100 mg PRN QHS PRN PO INSOMNIA Last administered on 07/23at 00:33; Start 07/21/17 at 19:00; Stop 07/23/17 at 18:46; Status DC Trazodone HCl (Desyrel) 100 mg QHS PO Last administered on 07/21/17at 19:58; Start 07/21/17 at 21:00; Stop 07/23/17 at 18:46; Status DC Mirtazapine (Remeron) 15 mg QHS PO ; Start 07/21/17 at 21:00; Stop 07/21/17 at 21: 00; Status DC Olanzapine (ZyPREXA ZYDIS) 5 mg PRN Q2HR PRN PO PSYCHOSIS Last administered on 07/22/17 22:06; Start 07/22/17 at 21:45 Amitriptyline HCl (Elavil) 50 mg QHS PO ; Start 07/23/17 at 21:00; Stop 07/23/17 at 21:00; Status DC Amitriptyline HCl (Elavil) 50 mg QHS PO Last administered on 07/30/17at 19:39; Start 07/22/17 at 22:00 Risperidone (RisperDAL) 0.5 mg DAILY PO Last administered on 07/25/17 08:24; Start 07/24/17 at 09:00; Stop 07/25/17 at 18:07; Status DC Risperidone (RisperDAL) 0.5 mg ONCE ONCE PO Last administered on 07/23/17 17: 37; Start 07/23/17 at 16:30; Stop 07/23/17 at 16:42; Status DC Trazodone HCl (Desyrel) 150 mg PRN QHS PRN PO INSOMNIA Last administered on 07/26at 01:23; Start 07/23/17 at 18:45 Trazodone HCl (Desyrel) 150 mg QHS PO Last administered on 07/30/17 19:40; Start 07/23/17 at 21:00 Potassium Chloride (Klor-Con) 20 meq DAILYWBKFT PO Last administered on at 08:32; Start 07/25/17 at 08:00 Potassium Chloride (Klor-Con) 20 meq 1X ONCE PO Last administered on 07/24/17at 14:33; Start 07/24/17 at 14:30; Stop 07/24/17 at 14:31; Status DC Atorvastatin Calcium (Lipitor) 20 mg QHS PO Last administered on 07/30/17 19: 40; Start 07/24/17 at 21:00 Risperidone (RisperDAL) 0.75 mg DAILY PO Last administered on 07/31/17at 08:34; Start 07/26/17 at 09:00 Amoxicillin (Amoxil) 250 mg [id number] PO Last administered on 07/31/17 14:23; Start 07/30/17 at 14:00; Stop 08/06/17 at 13:59 Lactobacillus Rhamnosus (Culturelle) 1 cap BID PO Last administered on at 08:32; Start 07/30/17 at 21:00; Stop 08/09/17 at 20:59 Melatonin 3 mg PRN QHS PRN PO INSOMNIA; Start 07/31/17 at 18:15 Active Scripts Active Reported Seroquel (Quetiapine Fumarate) 25 Mg Tablet 12.5 Mg PO DAILY Robitussin Nighttime Cough Dm (Dextromethorphan Hb/Doxylamine) 237 Ml Liquid 10 Ml PO PRN Q6HRS PRN Levemir Flextouch (Insulin Detemir) 100 Unit/1 Ml Insuln.pen 10 Unit SQ HS Cosopt Eye Drops (Dorzolamide Hcl/Timolol Maleat) 10 Ml Drops 1 Ml OU BID Prednisolone Acetate 5 Ml Drops.susp 1 Ml OD DAILY Alprazolam 0.25 Mg Tablet 0.25 Mg PO BID PRN Systane 0.3-0.4% Eye Drops (Propylene Glycol/Peg 400) 15 Ml Drops 15 Ml OS PRN Hydrocodone-Apap 5-325 (Hydrocodone Bit/Acetaminophen) 1 Each Tablet 2 Tab PO PRN Q6HRS PRN Docusate Sodium 100 Mg Capsule 100 Mg PO PRN DAILY PRN Hydrocodone-Apap 5-325 (Hydrocodone Bit/Acetaminophen) 1 Each Tablet 1 Tab PO BID PRN Milk Of Magnesia (Magnesium Hydroxide) 400 Mg/5 Ml Oral.susp 2,400 Mg PO PRN DAILY PRN Bisacodyl 10 Mg Supp.rect 10 Mg RC PRN ALT PRN Simvastatin 10 Mg Tablet 10 Mg PO DAILY Namenda Xr (Memantine Hcl) 28 Mg Cap.spr.24 28 Mg PO DAILY Mirtazapine 15 Mg Tablet 7.5 Mg PO Mirtazapine 15 Mg Tablet 1 Tab PO QHS Metformin Hcl 500 Mg Tablet 500 Mg PO BIDWMEALS Lisinopril 40 Mg Tablet 40 Mg PO DAILY Glipizide 5 Mg Tablet 5 Mg PO BID Furosemide 20 Mg Tablet 20 Mg PO DAILY Donepezil Hcl 10 Mg Tablet 10 Mg PO DAILY Clonidine Hcl 0.2 Mg Tablet 0.2 Mg PO BID Citalopram Hbr (Citalopram Hydrobromide) 20 Mg Tablet 20 Mg PO DAILY Buspirone Hcl 10 Mg Tablet 10 Mg PO BID Aspirin Ec (Aspirin) 81 Mg Tablet.dr 81 Mg PO DAILY Amlodipine Besylate 10 Mg Tablet 10 Mg PO DAILY I have reviewed the current psychotropics carefully including drug interactions. Risk benefit ratio favors no change other than as noted in my dictated progress note. Diagnosis: Problems: (1) MDD (major depressive disorder) (2) Dementia with behavioral disturbance (3) Anxiety disorder (4) Impulse control disorder (5) Psychotic depression (6) Mild cognitive impairment HECTOR PLEITEZ MD Jul 31, 2017 20:23
[2017-07-31] MEDS: AMITRIPTYLINE HCL 50 MG TABLET PO SCH (20:41)
[2017-07-31] MEDS: traZODone 100 MG TABLET. PO SCH (20:41)
[2017-07-31] MEDS: ATORVASTATIN CALCIUM 20 MG TABLET PO SCH (20:42)
[2017-07-31] MEDS: INSULIN DETEMIR 300 UNITS/3 ML INSULN.PEN. SQ SCH (21:00)
--- NOTE | 2017-07-31 21:57 | PN ---
DATE: 07/30/2017 This is a late entry for 07/30/2017 covers elements not covered in my initial note of 07/30/2017. SUBJECTIVE: I met with the patient in the evening of 07/30/2017. The patient has been paranoid, suspicious, spends much time in her room. She is convinced someone stole her comb that she had, quite paranoid at times. UA was positive, started on Amoxil for UTI. REVIEW OF SYSTEMS: Ambulation impaired, with walker. No CV, , pulmonary, eye, ENT system symptoms on review. MENTAL STATUS EXAM: Oriented to herself and situation. Speech has some latency, coherent. Abstraction fair, computation impaired, language function intact, attention span short. Mood and affect still withdrawn. LABORATORY DATA: Reviewed. IMPRESSION: Unchanged from initial note. PLAN: Treat the UTI. Continue psychotropics at current dosage if paranoia persists despite resolution of UTI. We will increase Risperdal. HECTOR PLEITEZ MD DR: DINO/demetrio JOB#: [id number] / [id number]
[2017-08-01 05:53] VITALS: BP 148/90
[2017-08-01] MEDS: INSULIN ASPART 300 UNITS/3 ML INSULN.PEN SQ SCH ×3 (07:30→16:30)
[2017-08-01] MEDS: metFORMIN 500 MG TABLET PO SCH ×2 (08:08→17:26)
[2017-08-01] MEDS: LACTOBACILLUS RHAMNOSUS GG 1 CAPSULE. PO SCH ×2 (08:08→19:31)
[2017-08-01] MEDS: CITALOPRAM 20 MG TABLET. PO SCH (08:08)
[2017-08-01] MEDS: glipiZIDE 5 MG TABLET PO SCH ×2 (08:08→19:30)
[2017-08-01] MEDS: ASPIRIN ENTERIC COATED 81 MG TABLET.DR. PO SCH (08:09)
[2017-08-01] MEDS: DONEPEZIL HCL 10 MG TABLET PO SCH (08:09)
[2017-08-01] MEDS: FUROSEMIDE 20 MG TABLET PO SCH (08:09)
[2017-08-01] MEDS: MEMANTINE 10 MG TABLET. PO SCH ×2 (08:09→19:31)
[2017-08-01] MEDS: busPIRone 10 MG TABLET. PO SCH ×2 (08:09→19:31)
[2017-08-01] MEDS: AMOXICILLIN 250 MG CAPSULE PO SCH ×3 (08:09→19:30)
[2017-08-01] MEDS: POTASSIUM CHLORIDE 20 MEQ TABLET.ER. PO SCH (08:09)
[2017-08-01] MEDS: amLODIPine BESYLATE 10 MG TABLET PO SCH (08:12)
[2017-08-01] MEDS: risperiDONE 0.5 MG TABLET. PO SCH (08:12)
[2017-08-01] MEDS: cloNIDine HCL 0.2 MG TABLET PO SCH ×2 (08:13→19:31)
[2017-08-01] MEDS: LISINOPRIL 20 MG TABLET PO SCH (08:14)
[2017-08-01] MEDS: prednisoLONE ACETATE 1% OPHTH SUSPENSION 5ML BOTTLE. OD SCH (08:16)
[2017-08-01] MEDS: DORZOLAMIDE/TIMOLOL 2%/0.5% OPHTH SOLUTION 10ML BOTTLE. OU SCH ×2 (08:16→19:33)
[2017-08-01 15:55] VITALS: BP 119/77
[2017-08-01] MEDS: AMITRIPTYLINE HCL 50 MG TABLET PO SCH (19:30)
[2017-08-01] MEDS: INSULIN DETEMIR 300 UNITS/3 ML INSULN.PEN. SQ SCH (19:30)
[2017-08-01] MEDS: ATORVASTATIN CALCIUM 20 MG TABLET PO SCH (19:31)
[2017-08-01] MEDS: traZODone 100 MG TABLET. PO SCH (19:31)
[2017-08-01] MEDS: MELATONIN 3 MG TABLET PO SCH ×2 (19:37→19:59)
--- NOTE | 2017-08-01 20:57 | PDOC ---
Exam Note: [place] Note: Please also refer to the separate dictated note~for this date of service dictated separately.~Patient seen individually. Discussed the patient with Nursing staff reviewed the chart.~Reviewed interim history and current functioning. Reviewed vital signs,~Labs/ Radiology~and current medications noted below. Continue current treatment with the changes noted in the dictated addendum note Assessment: Vital Signs: Vital Signs Date Time Temp Pulse Resp B/P (MAP) Pulse Ox O2 Delivery O2 Flow Rate FiO2 08/01/17 19:31 78 119/77 08/01/17 15:55 98.2 20 95 07/29/17 16:10 Room Air I&O Intake and Output 08/01/17 07:00 Intake Total 600 ml Balance 600 ml Intake Oral 600 ml # Voids 2 # Bowel Movements 1 Labs: Laboratory Tests Test 08/01/17 12:18 08/01/17 17:12 08/01/17 19:03 Glucose (Fingerstick) 89 mg/dL (70-99) 123 mg/dL (70-99) H 205 mg/dL (70-99) H Current Medications: Meds: Current Medications Lorazepam (Ativan) 0.5 mg 1X ONCE IV ; Start 07/19/17 at 21:00; Stop 07/19/17 at 21:00; Status DC Lorazepam (Ativan) 1 mg 1X ONCE PO Last administered on 07/19/17at 21:06; Start 07/19/17 at 21:00; Stop 07/19/17 at 21:04; Status DC Multi-Ingredient Ointment (Analgesic [place]) 1 geraldine PRN QID PRN TP MUSCLE PAIN; Start 07/19/17 at 21:45 Al Hydroxide/Mg Hydroxide (Mylanta Plus Xs) 15 ml PRN AFTMEALHC PRN PO DYSPEPSIA; Start 07/19/17 at 21:45 Magnesium Hydroxide (Milk Of Magnesia) 2,400 mg PRN QHS PRN PO CONSTIPATION; Start 07/19/17 at 21:45 Olanzapine (ZyPREXA ZYDIS) 2.5 mg PRN Q2HR PRN PO PSYCHOSIS Last administered on 07/22/17at 20:45; Start 07/19/17 at 22:00; Stop 07/22/17 at 21:34; Status DC Alprazolam (Xanax) 0.25 mg PRN BID PRN PO ANXIETY / AGITATION Last administered on 07/22/17 20:45; Start 07/19/17 at 22:30 Buspirone HCl (Buspar) 10 mg BID PO Last administered on 08/01/17 19:31; Start 07/20/17 at 09:00 Citalopram Hydrobromide (CeleXA) 20 mg DAILY PO Last administered on 08/01/17 08:08; Start 07/20/17 at 09:00 Donepezil HCl (Aricept) 10 mg DAILY PO Last administered on 08/01/17 08:09; Start 07/20/17 at 09:00 Mirtazapine (Remeron) 15 mg QHS PO Last administered on 07/21/17 19:55; Start 07/20/17 at 21:00; Stop 07/22/17 at 21:34; Status DC Memantine (Namenda) 10 mg BID PO Last administered on 08/01/17 19:31; Start at 09:00 Amlodipine Besylate (Norvasc) 10 mg DAILY PO Last administered on 08/01/17 08: 12; Start 07/20/17 at 09:00 Aspirin (Aspirin Enteric Coated) 81 mg DAILY PO Last administered on 08/01/17 08:09; Start 07/20/17 at 09:00 Bisacodyl (Dulcolax Supp) 10 mg PRN ALT PRN RC CONSTIPATION; Start 07/20/17 at 07:15 Clonidine HCl (Catapres) 0.2 mg BID PO Last administered on 08/01/17 19:31; Start 07/20/17 at 09:00 Docusate Sodium (Colace) 100 mg PRN DAILY PRN PO CONSTIPATION; Start 07/20/17 at 07:15 Dorzolamide/ Timolol (Cosopt) 1 drop BID OU Last administered on 08/01/17 19: 33; Start 07/20/17 at 09:00 Furosemide (Lasix) 20 mg DAILY PO Last administered on 08/01/17 08:09; Start 07/20/17 at 09:00 Glipizide (Glucotrol) 5 mg BID PO Last administered on 08/01/17 19:30; Start 07/20/17 at 09:00 Acetaminophen/ Hydrocodone Bitart (Lortab 5/325) 1 tab PRN BID PRN PO PAIN Last administered on 07/26/17at 01:23; Start 07/20/17 at 07:15 Insulin Detemir (Levemir) 10 units HS SQ Last administered on 08/01/17at 19:30; Start 07/20/17 at 21:00 Magnesium Hydroxide (Milk Of Magnesia) 400 mg PRN DAILY PRN PO CONSTIPATION; Start 07/20/17 at 07:15; Stop 07/21/17 at 02:10; Status DC Metformin HCl (Glucophage) 500 mg BIDWMEALS PO Last administered on 08/01/17at 17:26; Start 07/20/17 at 08:00 Prednisolone Acetate (Pred Forte) 1 drop DAILY OD Last administered on at 08:16; Start 07/20/17 at 09:00 Simvastatin (Zocor) 10 mg QHS PO Last administered on 07/20/17at 19:38; Start 07/20/17 at 21:00; Stop 07/21/17 at 17:31; Status DC Non-Formulary Medication 10 ml PRN Q6HRS PRN PO COUGH; Start 07/20/17 at 07:15; Stop 07/20/17 at 08:02; Status DC Lisinopril (Prinivil) 40 mg DAILY PO Last administered on 08/01/17at 08:14; Start 07/20/17 at 09:00 Insulin Aspart (NovoLOG) 0-5 UNITS TIDBFRMEAL SQ Last administered on at 17:02; Start 07/20/17 at 07:30 Dextrose 12.5 gm PRN Q15MIN PRN IV SEE COMMENTS; Start 07/20/17 at 07:30 Lorazepam (Ativan) 1 mg STK-MED ONCE .ROUTE ; Start 07/19/17 at 21:04; Stop 07/20 at 08:44; Status DC Acetaminophen (Tylenol) 650 mg PRN Q6HRS PRN PO PAIN / TEMP; Start 07/20/17 at 17:15; Stop 07/20/17 at 17:15; Status DC Multi-Ingredient Ointment (Analgesic [place]) 1 geraldine PRN QID PRN TP MUSCLE PAIN; Start 07/20/17 at 17:15; Stop 07/20/17 at 17:15; Status DC Al Hydroxide/Mg Hydroxide (Mylanta Plus Xs) 15 ml PRN AFTMEALHC PRN PO DYSPEPSIA; Start 07/20/17 at 17:15; Stop 07/20/17 at 17:15; Status DC Magnesium Hydroxide (Milk Of Magnesia) 2,400 mg PRN QHS PRN PO CONSTIPATION; Start 07/20/17 at 17:15; Stop 07/20/17 at 17:15; Status DC Trazodone HCl (Desyrel) 50 mg QHS PO Last administered on 07/20/17at 19:38; Start 07/20/17 at 21:00; Stop 07/21/17 at 18:48; Status DC Trazodone HCl (Desyrel) 50 mg PRN QHS PRN PO INSOMNIA Last administered on at 00:47; Start 07/20/17 at 21:00; Stop 07/21/17 at 18:48; Status DC Vitamin D (Vitamin D3) 50,000 unit WEEKLY PO Last administered on 07/27/17at 08: 04; Start 07/20/17 at 20:00 Atorvastatin Calcium (Lipitor) 20 mg QHS PO ; Start 07/20/17 at 21:00; Stop at 21:00; Status DC Atorvastatin Calcium (Lipitor) 10 mg QHS PO Last administered on 07/23/17at 19:37 ; Start 07/21/17 at 21:00; Stop 07/24/17 at 14:27; Status DC Trazodone HCl (Desyrel) 100 mg PRN QHS PRN PO INSOMNIA Last administered on 07/23at 00:33; Start 07/21/17 at 19:00; Stop 07/23/17 at 18:46; Status DC Trazodone HCl (Desyrel) 100 mg QHS PO Last administered on 07/21/17at 19:58; Start 07/21/17 at 21:00; Stop 07/23/17 at 18:46; Status DC Mirtazapine (Remeron) 15 mg QHS PO ; Start 07/21/17 at 21:00; Stop 07/21/17 at 21: 00; Status DC Olanzapine (ZyPREXA ZYDIS) 5 mg PRN Q2HR PRN PO PSYCHOSIS Last administered on 07/22/17 22:06; Start 07/22/17 at 21:45 Amitriptyline HCl (Elavil) 50 mg QHS PO ; Start 07/23/17 at 21:00; Stop 07/23/17 at 21:00; Status DC Amitriptyline HCl (Elavil) 50 mg QHS PO Last administered on 08/01/17 19:30; Start 07/22/17 at 22:00 Risperidone (RisperDAL) 0.5 mg DAILY PO Last administered on 07/25/17 08:24; Start 07/24/17 at 09:00; Stop 07/25/17 at 18:07; Status DC Risperidone (RisperDAL) 0.5 mg ONCE ONCE PO Last administered on 07/23/17 17: 37; Start 07/23/17 at 16:30; Stop 07/23/17 at 16:42; Status DC Trazodone HCl (Desyrel) 150 mg PRN QHS PRN PO INSOMNIA Last administered on 07/26at 01:23; Start 07/23/17 at 18:45 Trazodone HCl (Desyrel) 150 mg QHS PO Last administered on 08/01/17 19:31; Start 07/23/17 at 21:00 Potassium Chloride (Klor-Con) 20 meq DAILYWBKFT PO Last administered on 08:09; Start 07/25/17 at 08:00 Potassium Chloride (Klor-Con) 20 meq 1X ONCE PO Last administered on 07/24/17at 14:33; Start 07/24/17 at 14:30; Stop 07/24/17 at 14:31; Status DC Atorvastatin Calcium (Lipitor) 20 mg QHS PO Last administered on 08/01/17 19: 31; Start 07/24/17 at 21:00 Risperidone (RisperDAL) 0.75 mg DAILY PO Last administered on 08/01/17 08:12; Start 07/26/17 at 09:00 Amoxicillin (Amoxil) 250 mg [id number] PO Last administered on 08/01/17 19:30; Start 07/30/17 at 14:00; Stop 08/06/17 at 13:59 Lactobacillus Rhamnosus (Culturelle) 1 cap BID PO Last administered on at 19:31; Start 07/30/17 at 21:00; Stop 08/09/17 at 20:59 Melatonin 3 mg PRN QHS PRN PO INSOMNIA; Start 07/31/17 at 18:15; Stop 08/01/17 at 19:19; Status DC Melatonin 6 mg QHS PO Last administered on 08/01/17at 19:37; Start 08/01/17 at 19:45 Active Scripts Active Reported Seroquel (Quetiapine Fumarate) 25 Mg Tablet 12.5 Mg PO DAILY Robitussin Nighttime Cough Dm (Dextromethorphan Hb/Doxylamine) 237 Ml Liquid 10 Ml PO PRN Q6HRS PRN Levemir Flextouch (Insulin Detemir) 100 Unit/1 Ml Insuln.pen 10 Unit SQ HS Cosopt Eye Drops (Dorzolamide Hcl/Timolol Maleat) 10 Ml Drops 1 Ml OU BID Prednisolone Acetate 5 Ml Drops.susp 1 Ml OD DAILY Alprazolam 0.25 Mg Tablet 0.25 Mg PO BID PRN Systane 0.3-0.4% Eye Drops (Propylene Glycol/Peg 400) 15 Ml Drops 15 Ml OS PRN Hydrocodone-Apap 5-325 (Hydrocodone Bit/Acetaminophen) 1 Each Tablet 2 Tab PO PRN Q6HRS PRN Docusate Sodium 100 Mg Capsule 100 Mg PO PRN DAILY PRN Hydrocodone-Apap 5-325 (Hydrocodone Bit/Acetaminophen) 1 Each Tablet 1 Tab PO BID PRN Milk Of Magnesia (Magnesium Hydroxide) 400 Mg/5 Ml Oral.susp 2,400 Mg PO PRN DAILY PRN Bisacodyl 10 Mg Supp.rect 10 Mg RC PRN ALT PRN Simvastatin 10 Mg Tablet 10 Mg PO DAILY Namenda Xr (Memantine Hcl) 28 Mg Cap.spr.24 28 Mg PO DAILY Mirtazapine 15 Mg Tablet 7.5 Mg PO Mirtazapine 15 Mg Tablet 1 Tab PO QHS Metformin Hcl 500 Mg Tablet 500 Mg PO BIDWMEALS Lisinopril 40 Mg Tablet 40 Mg PO DAILY Glipizide 5 Mg Tablet 5 Mg PO BID Furosemide 20 Mg Tablet 20 Mg PO DAILY Donepezil Hcl 10 Mg Tablet 10 Mg PO DAILY Clonidine Hcl 0.2 Mg Tablet 0.2 Mg PO BID Citalopram Hbr (Citalopram Hydrobromide) 20 Mg Tablet 20 Mg PO DAILY Buspirone Hcl 10 Mg Tablet 10 Mg PO BID Aspirin Ec (Aspirin) 81 Mg Tablet. 81 Mg PO DAILY Amlodipine Besylate 10 Mg Tablet 10 Mg PO DAILY I have reviewed the current psychotropics carefully including drug interactions. Risk benefit ratio favors no change other than as noted in my dictated progress note. Diagnosis: Problems: (1) MDD (major depressive disorder) (2) Dementia with behavioral disturbance (3) Anxiety disorder (4) Impulse control disorder (5) Psychotic depression (6) Mild cognitive impairment HECTOR PLEITEZ MD Aug 01, 2017 20:57
--- NOTE | 2017-08-01 21:07 | PN ---
DATE: 07/31/2017 PSYCHIATRIC PROGRESS NOTE This is a late entry for 07/31/2017, covers elements not covered in my initial note of 07/31/2017. SUBJECTIVE: I met with the patient the evening of 07/31/2017. The patient slept 2-1/2 hours previous evening and we will go ahead and add melatonin 3 mg at bedtime to help with insomnia. She is paranoid, still withdrawn to her room, but less so than before. Compliant with medications. REVIEW OF SYSTEMS: No CV, , pulmonary, eye system symptoms on review. Gait unsteady with walker. MENTAL STATUS EXAM: Oriented to herself and situation. Speech coherent, abstraction fair, computation impaired, language function intact, attention span short. Mood and affect withdrawn, but better than before. LABORATORY DATA: Reviewed. IMPRESSION: Unchanged from initial note. PLAN: Continue psychotropics mentioned in my initial note and start the melatonin as noted. HECTOR PLEITEZ MD DR: DINO/demetrio JOB#: [id number] / [id number]
[2017-08-02 05:52] VITALS: BP 144/87
[2017-08-02] MEDS: INSULIN ASPART 300 UNITS/3 ML INSULN.PEN SQ SCH ×3 (07:30→16:30)
[2017-08-02] MEDS: ASPIRIN ENTERIC COATED 81 MG TABLET.DR. PO SCH (08:05)
[2017-08-02] MEDS: DONEPEZIL HCL 10 MG TABLET PO SCH (08:05)
[2017-08-02] MEDS: CITALOPRAM 20 MG TABLET. PO SCH (08:05)
[2017-08-02] MEDS: busPIRone 10 MG TABLET. PO SCH ×2 (08:05→19:35)
[2017-08-02] MEDS: AMOXICILLIN 250 MG CAPSULE PO SCH ×3 (08:05→19:35)
[2017-08-02] MEDS: LACTOBACILLUS RHAMNOSUS GG 1 CAPSULE. PO SCH ×2 (08:05→19:34)
[2017-08-02] MEDS: MEMANTINE 10 MG TABLET. PO SCH ×2 (08:06→19:35)
[2017-08-02] MEDS: FUROSEMIDE 20 MG TABLET PO SCH (08:06)
[2017-08-02] MEDS: amLODIPine BESYLATE 10 MG TABLET PO SCH (08:06)
[2017-08-02] MEDS: glipiZIDE 5 MG TABLET PO SCH ×2 (08:06→19:35)
[2017-08-02] MEDS: POTASSIUM CHLORIDE 20 MEQ TABLET.ER. PO SCH (08:06)
[2017-08-02] MEDS: LISINOPRIL 20 MG TABLET PO SCH (08:07)
[2017-08-02] MEDS: cloNIDine HCL 0.2 MG TABLET PO SCH ×2 (08:07→19:35)
[2017-08-02] MEDS: risperiDONE 0.5 MG TABLET. PO SCH (08:08)
[2017-08-02] MEDS: DORZOLAMIDE/TIMOLOL 2%/0.5% OPHTH SOLUTION 10ML BOTTLE. OU SCH ×2 (08:11→19:37)
[2017-08-02] MEDS: metFORMIN 500 MG TABLET PO SCH ×2 (08:11→17:09)
[2017-08-02] MEDS: prednisoLONE ACETATE 1% OPHTH SUSPENSION 5ML BOTTLE. OD SCH (08:11)
[2017-08-02 16:23] VITALS: BP 128/73
[2017-08-02] MEDS: MELATONIN 3 MG TABLET PO SCH (19:34)
[2017-08-02] MEDS: traZODone 100 MG TABLET. PO SCH (19:34)
[2017-08-02] MEDS: AMITRIPTYLINE HCL 50 MG TABLET PO SCH (19:36)
[2017-08-02] MEDS: ATORVASTATIN CALCIUM 20 MG TABLET PO SCH (19:36)
[2017-08-02] MEDS: INSULIN DETEMIR 300 UNITS/3 ML INSULN.PEN. SQ SCH (19:39)
--- NOTE | 2017-08-02 20:41 | PDOC ---
Exam Note: [place]ney Note: Please also refer to the separate dictated note~for this date of service dictated separately.~Patient seen individually. Discussed the patient with Nursing staff reviewed the chart.~Reviewed interim history and current functioning. Reviewed vital signs,~Labs/ Radiology~and current medications noted below. Continue current treatment with the changes noted in the dictated addendum note Assessment: Vital Signs: Vital Signs Date Time Temp Pulse Resp B/P (MAP) Pulse Ox O2 Delivery O2 Flow Rate FiO2 08/02/17 19:35 88 128/73 08/02/17 16:23 97.8 20 98 07/29/17 16:10 Room Air I&O Intake and Output 08/02/17 07:00 Intake Total 720 ml Balance 720 ml Intake Oral 720 ml # Voids 2 # Bowel Movements 1 Labs: Laboratory Tests Test 08/02/17 07:18 08/02/17 11:49 08/02/17 16:40 08/02/17 19:04 Glucose (Fingerstick) 89 mg/dL (70-99) 120 mg/dL (70-99) H 137 mg/dL (70-99) H 160 mg/dL (70-99) H Current Medications: Meds: Current Medications Lorazepam (Ativan) 0.5 mg 1X ONCE IV ; Start 07/19/17 at 21:00; Stop 07/19/17 at 21:00; Status DC Lorazepam (Ativan) 1 mg 1X ONCE PO Last administered on 07/19/17at 21:06; Start 07/19/17 at 21:00; Stop 07/19/17 at 21:04; Status DC Multi-Ingredient Ointment (Analgesic [place]) 1 geraldine PRN QID PRN TP MUSCLE PAIN; Start 07/19/17 at 21:45 Al Hydroxide/Mg Hydroxide (Mylanta Plus Xs) 15 ml PRN AFTMEALHC PRN PO DYSPEPSIA; Start 07/19/17 at 21:45 Magnesium Hydroxide (Milk Of Magnesia) 2,400 mg PRN QHS PRN PO CONSTIPATION; Start 07/19/17 at 21:45 Olanzapine (ZyPREXA ZYDIS) 2.5 mg PRN Q2HR PRN PO PSYCHOSIS Last administered on 07/22/17at 20:45; Start 07/19/17 at 22:00; Stop 07/22/17 at 21:34; Status DC Alprazolam (Xanax) 0.25 mg PRN BID PRN PO ANXIETY / AGITATION Last administered on 07/22/17 20:45; Start 07/19/17 at 22:30 Buspirone HCl (Buspar) 10 mg BID PO Last administered on 08/02/17 19:35; Start 07/20/17 at 09:00 Citalopram Hydrobromide (CeleXA) 20 mg DAILY PO Last administered on 08/02/17 08:05; Start 07/20/17 at 09:00 Donepezil HCl (Aricept) 10 mg DAILY PO Last administered on 08/02/17 08:05; Start 07/20/17 at 09:00 Mirtazapine (Remeron) 15 mg QHS PO Last administered on 07/21/17 19:55; Start 07/20/17 at 21:00; Stop 07/22/17 at 21:34; Status DC Memantine (Namenda) 10 mg BID PO Last administered on 08/02/17 19:35; Start at 09:00 Amlodipine Besylate (Norvasc) 10 mg DAILY PO Last administered on 08/02/17 08: 06; Start 07/20/17 at 09:00 Aspirin (Aspirin Enteric Coated) 81 mg DAILY PO Last administered on 08/02/17 08:05; Start 07/20/17 at 09:00 Bisacodyl (Dulcolax Supp) 10 mg PRN ALT PRN RC CONSTIPATION; Start 07/20/17 at 07:15 Clonidine HCl (Catapres) 0.2 mg BID PO Last administered on 08/02/17 19:35; Start 07/20/17 at 09:00 Docusate Sodium (Colace) 100 mg PRN DAILY PRN PO CONSTIPATION; Start 07/20/17 at 07:15 Dorzolamide/ Timolol (Cosopt) 1 drop BID OU Last administered on 08/02/17 19: 37; Start 07/20/17 at 09:00 Furosemide (Lasix) 20 mg DAILY PO Last administered on 08/02/17 08:06; Start 07/20/17 at 09:00 Glipizide (Glucotrol) 5 mg BID PO Last administered on 3/14/18at 19:35; Start 07/20/17 at 09:00 Acetaminophen/ Hydrocodone Bitart (Lortab 5/325) 1 tab PRN BID PRN PO PAIN Last administered on 07/26/17at 01:23; Start 07/20/17 at 07:15 Insulin Detemir (Levemir) 10 units HS SQ Last administered on 08/02/17at 19:39; Start 07/20/17 at 21:00 Magnesium Hydroxide (Milk Of Magnesia) 400 mg PRN DAILY PRN PO CONSTIPATION; Start 07/20/17 at 07:15; Stop 07/21/17 at 02:10; Status DC Metformin HCl (Glucophage) 500 mg BIDWMEALS PO Last administered on 08/02/17at 17:09; Start 07/20/17 at 08:00 Prednisolone Acetate (Pred Forte) 1 drop DAILY OD Last administered on at 08:11; Start 07/20/17 at 09:00 Simvastatin (Zocor) 10 mg QHS PO Last administered on 07/20/17at 19:38; Start 07/20/17 at 21:00; Stop 07/21/17 at 17:31; Status DC Non-Formulary Medication 10 ml PRN Q6HRS PRN PO COUGH; Start 07/20/17 at 07:15; Stop 07/20/17 at 08:02; Status DC Lisinopril (Prinivil) 40 mg DAILY PO Last administered on 08/02/17at 08:07; Start 07/20/17 at 09:00 Insulin Aspart (NovoLOG) 0-5 UNITS TIDBFRMEAL SQ Last administered on at 17:02; Start 07/20/17 at 07:30 Dextrose 12.5 gm PRN Q15MIN PRN IV SEE COMMENTS; Start 07/20/17 at 07:30 Lorazepam (Ativan) 1 mg STK-MED ONCE .ROUTE ; Start 07/19/17 at 21:04; Stop 07/20 at 08:44; Status DC Acetaminophen (Tylenol) 650 mg PRN Q6HRS PRN PO PAIN / TEMP; Start 07/20/17 at 17:15; Stop 07/20/17 at 17:15; Status DC Multi-Ingredient Ointment (Analgesic [place]) 1 geraldine PRN QID PRN TP MUSCLE PAIN; Start 07/20/17 at 17:15; Stop 07/20/17 at 17:15; Status DC Al Hydroxide/Mg Hydroxide (Mylanta Plus Xs) 15 ml PRN AFTMEALHC PRN PO DYSPEPSIA; Start 07/20/17 at 17:15; Stop 07/20/17 at 17:15; Status DC Magnesium Hydroxide (Milk Of Magnesia) 2,400 mg PRN QHS PRN PO CONSTIPATION; Start 07/20/17 at 17:15; Stop 07/20/17 at 17:15; Status DC Trazodone HCl (Desyrel) 50 mg QHS PO Last administered on 07/20/17at 19:38; Start 07/20/17 at 21:00; Stop 07/21/17 at 18:48; Status DC Trazodone HCl (Desyrel) 50 mg PRN QHS PRN PO INSOMNIA Last administered on at 00:47; Start 07/20/17 at 21:00; Stop 07/21/17 at 18:48; Status DC Vitamin D (Vitamin D3) 50,000 unit WEEKLY PO Last administered on 07/27/17at 08: 04; Start 07/20/17 at 20:00 Atorvastatin Calcium (Lipitor) 20 mg QHS PO ; Start 07/20/17 at 21:00; Stop at 21:00; Status DC Atorvastatin Calcium (Lipitor) 10 mg QHS PO Last administered on 07/23/17at 19:37 ; Start 07/21/17 at 21:00; Stop 07/24/17 at 14:27; Status DC Trazodone HCl (Desyrel) 100 mg PRN QHS PRN PO INSOMNIA Last administered on 07/23at 00:33; Start 07/21/17 at 19:00; Stop 07/23/17 at 18:46; Status DC Trazodone HCl (Desyrel) 100 mg QHS PO Last administered on 07/21/17at 19:58; Start 07/21/17 at 21:00; Stop 07/23/17 at 18:46; Status DC Mirtazapine (Remeron) 15 mg QHS PO ; Start 07/21/17 at 21:00; Stop 07/21/17 at 21: 00; Status DC Olanzapine (ZyPREXA ZYDIS) 5 mg PRN Q2HR PRN PO PSYCHOSIS Last administered on 07/22/17 22:06; Start 07/22/17 at 21:45 Amitriptyline HCl (Elavil) 50 mg QHS PO ; Start 07/23/17 at 21:00; Stop 07/23/17 at 21:00; Status DC Amitriptyline HCl (Elavil) 50 mg QHS PO Last administered on 08/02/17 19:36; Start 07/22/17 at 22:00 Risperidone (RisperDAL) 0.5 mg DAILY PO Last administered on 07/25/17 08:24; Start 07/24/17 at 09:00; Stop 07/25/17 at 18:07; Status DC Risperidone (RisperDAL) 0.5 mg ONCE ONCE PO Last administered on 07/23/17 17: 37; Start 07/23/17 at 16:30; Stop 07/23/17 at 16:42; Status DC Trazodone HCl (Desyrel) 150 mg PRN QHS PRN PO INSOMNIA Last administered on 07/26 01:23; Start 07/23/17 at 18:45 Trazodone HCl (Desyrel) 150 mg QHS PO Last administered on 08/02/17 19:34; Start 07/23/17 at 21:00 Potassium Chloride (Klor-Con) 20 meq DAILYWBKFT PO Last administered on at 08:06; Start 07/25/17 at 08:00 Potassium Chloride (Klor-Con) 20 meq 1X ONCE PO Last administered on 07/24/17at 14:33; Start 07/24/17 at 14:30; Stop 07/24/17 at 14:31; Status DC Atorvastatin Calcium (Lipitor) 20 mg QHS PO Last administered on 08/02/17 19: 36; Start 07/24/17 at 21:00 Risperidone (RisperDAL) 0.75 mg DAILY PO Last administered on 08/02/17 08:08; Start 07/26/17 at 09:00 Amoxicillin (Amoxil) 250 mg [id number] PO Last administered on 08/02/17 19:35; Start 3/11/18 at 14:00; Stop 08/06/17 at 13:59 Lactobacillus Rhamnosus (Culturelle) 1 cap BID PO Last administered on at 19:34; Start 07/30/17 at 21:00; Stop 08/09/17 at 20:59 Melatonin 3 mg PRN QHS PRN PO INSOMNIA; Start 07/31/17 at 18:15; Stop 08/01/17 at 19:19; Status DC Melatonin 6 mg QHS PO Last administered on 08/02/17at 19:34; Start 08/01/17 at 19:45 Active Scripts Active Reported Seroquel (Quetiapine Fumarate) 25 Mg Tablet 12.5 Mg PO DAILY Robitussin Nighttime Cough Dm (Dextromethorphan Hb/Doxylamine) 237 Ml Liquid 10 Ml PO PRN Q6HRS PRN Levemir Flextouch (Insulin Detemir) 100 Unit/1 Ml Insuln.pen 10 Unit SQ HS Cosopt Eye Drops (Dorzolamide Hcl/Timolol Maleat) 10 Ml Drops 1 Ml OU BID Prednisolone Acetate 5 Ml Drops.susp 1 Ml OD DAILY Alprazolam 0.25 Mg Tablet 0.25 Mg PO BID PRN Systane 0.3-0.4% Eye Drops (Propylene Glycol/Peg 400) 15 Ml Drops 15 Ml OS PRN Hydrocodone-Apap 5-325 (Hydrocodone Bit/Acetaminophen) 1 Each Tablet 2 Tab PO PRN Q6HRS PRN Docusate Sodium 100 Mg Capsule 100 Mg PO PRN DAILY PRN Hydrocodone-Apap 5-325 (Hydrocodone Bit/Acetaminophen) 1 Each Tablet 1 Tab PO BID PRN Milk Of Magnesia (Magnesium Hydroxide) 400 Mg/5 Ml Oral.susp 2,400 Mg PO PRN DAILY PRN Bisacodyl 10 Mg Supp.rect 10 Mg RC PRN ALT PRN Simvastatin 10 Mg Tablet 10 Mg PO DAILY Namenda Xr (Memantine Hcl) 28 Mg Cap.spr.24 28 Mg PO DAILY Mirtazapine 15 Mg Tablet 7.5 Mg PO Mirtazapine 15 Mg Tablet 1 Tab PO QHS Metformin Hcl 500 Mg Tablet 500 Mg PO BIDWMEALS Lisinopril 40 Mg Tablet 40 Mg PO DAILY Glipizide 5 Mg Tablet 5 Mg PO BID Furosemide 20 Mg Tablet 20 Mg PO DAILY Donepezil Hcl 10 Mg Tablet 10 Mg PO DAILY Clonidine Hcl 0.2 Mg Tablet 0.2 Mg PO BID Citalopram Hbr (Citalopram Hydrobromide) 20 Mg Tablet 20 Mg PO DAILY Buspirone Hcl 10 Mg Tablet 10 Mg PO BID Aspirin Ec (Aspirin) 81 Mg Tablet.dr 81 Mg PO DAILY Amlodipine Besylate 10 Mg Tablet 10 Mg PO DAILY I have reviewed the current psychotropics carefully including drug interactions. Risk benefit ratio favors no change other than as noted in my dictated progress note. Diagnosis: Problems: (1) MDD (major depressive disorder) (2) Dementia with behavioral disturbance (3) Anxiety disorder (4) Impulse control disorder (5) Psychotic depression (6) Mild cognitive impairment HECTOR PLEITEZ MD Aug 02, 2017 20:41
--- NOTE | 2017-08-03 00:39 | PN ---
DATE: 08/01/2017 This late entry of 08/01/2017 covers the elements not covered in my initial note 08/01/2017. HISTORY OF PRESENT ILLNESS: I met with the patient in the evening of 08/01/2017. Previous evening, she was quite withdrawn, spending much time in her room trying to throw up, had a bowel movement, then said she felt better. Slept 3-3/4 hours. REVIEW OF SYSTEMS: No CV, , pulmonary, eye, ENT system symptoms on review, met with her in her room. MENTAL STATUS EXAM: Reasonably oriented. Speech coherent, abstraction fair, computation impaired, language function intact, much less paranoid, psychotic, still somewhat dysphoric, anxious. No suicidal or homicidal ideation. IMPRESSION: Unchanged from initial note. PLAN: Increase melatonin to 6 mg at bedtime consequent to insomnia. Rest unchanged. MAN Yanira PLEITEZ MD DR: DINO/demetrio JOB#: [id number] / [id number]
[2017-08-03 06:07] VITALS: BP 106/60
[2017-08-03] MEDS: INSULIN ASPART 300 UNITS/3 ML INSULN.PEN SQ SCH ×3 (07:30→16:30)
[2017-08-03] MEDS: CITALOPRAM 20 MG TABLET. PO SCH (08:05)
[2017-08-03] MEDS: glipiZIDE 5 MG TABLET PO SCH ×2 (08:05→19:49)
[2017-08-03] MEDS: ASPIRIN ENTERIC COATED 81 MG TABLET.DR. PO SCH (08:05)
[2017-08-03] MEDS: risperiDONE 0.5 MG TABLET. PO SCH (08:06)
[2017-08-03] MEDS: cloNIDine HCL 0.2 MG TABLET PO SCH ×2 (08:06→19:54)
[2017-08-03] MEDS: AMOXICILLIN 250 MG CAPSULE PO SCH ×3 (08:06→19:49)
[2017-08-03] MEDS: LACTOBACILLUS RHAMNOSUS GG 1 CAPSULE. PO SCH ×2 (08:06→19:49)
[2017-08-03] MEDS: amLODIPine BESYLATE 10 MG TABLET PO SCH (08:06)
[2017-08-03] MEDS: busPIRone 10 MG TABLET. PO SCH ×2 (08:07→19:49)
[2017-08-03] MEDS: POTASSIUM CHLORIDE 20 MEQ TABLET.ER. PO SCH (08:07)
[2017-08-03] MEDS: LISINOPRIL 20 MG TABLET PO SCH (08:07)
[2017-08-03] MEDS: MEMANTINE 10 MG TABLET. PO SCH ×2 (08:07→19:49)
[2017-08-03] MEDS: DONEPEZIL HCL 10 MG TABLET PO SCH (08:07)
[2017-08-03] MEDS: FUROSEMIDE 20 MG TABLET PO SCH (08:08)
[2017-08-03] MEDS: DORZOLAMIDE/TIMOLOL 2%/0.5% OPHTH SOLUTION 10ML BOTTLE. OU SCH ×2 (08:09→19:51)
[2017-08-03] MEDS: prednisoLONE ACETATE 1% OPHTH SUSPENSION 5ML BOTTLE. OD SCH (08:09)
[2017-08-03] MEDS: metFORMIN 500 MG TABLET PO SCH ×2 (08:09→17:15)
[2017-08-03] MEDS: CHOLECALCIFEROL (VITAMIN D3) 50,000 UNIT CAPSULE PO SCH (08:10)
[2017-08-03] MEDS: MELATONIN 3 MG TABLET PO SCH (19:49)
[2017-08-03] MEDS: traZODone 100 MG TABLET. PO SCH (19:49)
[2017-08-03] MEDS: AMITRIPTYLINE HCL 50 MG TABLET PO SCH (19:49)
[2017-08-03] MEDS: ATORVASTATIN CALCIUM 20 MG TABLET PO SCH (19:49)
[2017-08-03] MEDS: INSULIN DETEMIR 300 UNITS/3 ML INSULN.PEN. SQ SCH (19:53)
[2017-08-03] MEDS: DOCUSATE SODIUM 100 MG CAPSULE PO SCH (20:14)
--- NOTE | 2017-08-03 20:23 | PDOC ---
Exam Note: [place] Note: Please also refer to the separate dictated note~for this date of service dictated separately.~Patient seen individually. Discussed the patient with Nursing staff reviewed the chart.~Reviewed interim history and current functioning. Reviewed vital signs,~Labs/ Radiology~and current medications noted below. Continue current treatment with the changes noted in the dictated addendum note Assessment: Vital Signs: Vital Signs Date Time Temp Pulse Resp B/P (MAP) Pulse Ox O2 Delivery O2 Flow Rate FiO2 08/03/17 19:54 99 142/82 08/03/17 16:21 97.8 18 98 Room Air I&O Intake and Output 08/03/17 07:00 Intake Total 1080 ml Balance 1080 ml Intake Oral 1080 ml # Voids 1 Labs: Laboratory Tests Test 08/03/17 07:32 08/03/17 11:45 08/03/17 17:06 08/03/17 19:50 Glucose (Fingerstick) 84 mg/dL (70-99) 86 mg/dL (70-99) 104 mg/dL (70-99) H 169 mg/dL (70-99) H Current Medications: Meds: Current Medications Lorazepam (Ativan) 0.5 mg 1X ONCE IV ; Start 07/19/17 at 21:00; Stop 07/19/17 at 21:00; Status DC Lorazepam (Ativan) 1 mg 1X ONCE PO Last administered on 07/19/17at 21:06; Start 07/19/17 at 21:00; Stop 07/19/17 at 21:04; Status DC Multi-Ingredient Ointment (Analgesic [place]) 1 geraldine PRN QID PRN TP MUSCLE PAIN; Start 07/19/17 at 21:45 Al Hydroxide/Mg Hydroxide (Mylanta Plus Xs) 15 ml PRN AFTMEALHC PRN PO DYSPEPSIA; Start 07/19/17 at 21:45 Magnesium Hydroxide (Milk Of Magnesia) 2,400 mg PRN QHS PRN PO CONSTIPATION; Start 07/19/17 at 21:45 Olanzapine (ZyPREXA ZYDIS) 2.5 mg PRN Q2HR PRN PO PSYCHOSIS Last administered on 07/22/17at 20:45; Start 07/19/17 at 22:00; Stop 07/22/17 at 21:34; Status DC Alprazolam (Xanax) 0.25 mg PRN BID PRN PO ANXIETY / AGITATION Last administered on 07/22/17 20:45; Start 07/19/17 at 22:30 Buspirone HCl (Buspar) 10 mg BID PO Last administered on 08/03/17 19:49; Start 07/20/17 at 09:00 Citalopram Hydrobromide (CeleXA) 20 mg DAILY PO Last administered on 08/03/17 08:05; Start 07/20/17 at 09:00 Donepezil HCl (Aricept) 10 mg DAILY PO Last administered on 08/03/17 08:07; Start 07/20/17 at 09:00 Mirtazapine (Remeron) 15 mg QHS PO Last administered on 07/21/17 19:55; Start 07/20/17 at 21:00; Stop 07/22/17 at 21:34; Status DC Memantine (Namenda) 10 mg BID PO Last administered on 08/03/17 19:49; Start at 09:00 Amlodipine Besylate (Norvasc) 10 mg DAILY PO Last administered on 08/03/17 08: 06; Start 07/20/17 at 09:00 Aspirin (Aspirin Enteric Coated) 81 mg DAILY PO Last administered on 08/03/17 08:05; Start 07/20/17 at 09:00 Bisacodyl (Dulcolax Supp) 10 mg PRN ALT PRN RC CONSTIPATION; Start 07/20/17 at 07:15 Clonidine HCl (Catapres) 0.2 mg BID PO Last administered on 08/03/17 19:54; Start 07/20/17 at 09:00 Docusate Sodium (Colace) 100 mg PRN DAILY PRN PO CONSTIPATION; Start 07/20/17 at 07:15 Dorzolamide/ Timolol (Cosopt) 1 drop BID OU Last administered on 08/03/17 19: 51; Start 07/20/17 at 09:00 Furosemide (Lasix) 20 mg DAILY PO Last administered on 08/03/17 08:08; Start 07/20/17 at 09:00 Glipizide (Glucotrol) 5 mg BID PO Last administered on 08/03/17 19:49; Start 07/20/17 at 09:00 Acetaminophen/ Hydrocodone Bitart (Lortab 5/325) 1 tab PRN BID PRN PO PAIN Last administered on 07/26/17at 01:23; Start 07/20/17 at 07:15 Insulin Detemir (Levemir) 10 units HS SQ Last administered on 08/03/17at 19:53; Start 07/20/17 at 21:00 Magnesium Hydroxide (Milk Of Magnesia) 400 mg PRN DAILY PRN PO CONSTIPATION; Start 07/20/17 at 07:15; Stop 07/21/17 at 02:10; Status DC Metformin HCl (Glucophage) 500 mg BIDWMEALS PO Last administered on 08/03/17at 17:15; Start 07/20/17 at 08:00 Prednisolone Acetate (Pred Forte) 1 drop DAILY OD Last administered on at 08:09; Start 07/20/17 at 09:00 Simvastatin (Zocor) 10 mg QHS PO Last administered on 07/20/17at 19:38; Start 07/20/17 at 21:00; Stop 07/21/17 at 17:31; Status DC Non-Formulary Medication 10 ml PRN Q6HRS PRN PO COUGH; Start 07/20/17 at 07:15; Stop 07/20/17 at 08:02; Status DC Lisinopril (Prinivil) 40 mg DAILY PO Last administered on 08/03/17at 08:07; Start 07/20/17 at 09:00 Insulin Aspart (NovoLOG) 0-5 UNITS TIDBFRMEAL SQ Last administered on at 17:02; Start 07/20/17 at 07:30 Dextrose 12.5 gm PRN Q15MIN PRN IV SEE COMMENTS; Start 07/20/17 at 07:30 Lorazepam (Ativan) 1 mg STK-MED ONCE .ROUTE ; Start 07/19/17 at 21:04; Stop 07/20 at 08:44; Status DC Acetaminophen (Tylenol) 650 mg PRN Q6HRS PRN PO PAIN / TEMP; Start 07/20/17 at 17:15; Stop 07/20/17 at 17:15; Status DC Multi-Ingredient Ointment (Analgesic [place]) 1 geraldine PRN QID PRN TP MUSCLE PAIN; Start 07/20/17 at 17:15; Stop 07/20/17 at 17:15; Status DC Al Hydroxide/Mg Hydroxide (Mylanta Plus Xs) 15 ml PRN AFTMEALHC PRN PO DYSPEPSIA; Start 07/20/17 at 17:15; Stop 07/20/17 at 17:15; Status DC Magnesium Hydroxide (Milk Of Magnesia) 2,400 mg PRN QHS PRN PO CONSTIPATION; Start 07/20/17 at 17:15; Stop 07/20/17 at 17:15; Status DC Trazodone HCl (Desyrel) 50 mg QHS PO Last administered on 07/20/17at 19:38; Start 07/20/17 at 21:00; Stop 07/21/17 at 18:48; Status DC Trazodone HCl (Desyrel) 50 mg PRN QHS PRN PO INSOMNIA Last administered on at 00:47; Start 07/20/17 at 21:00; Stop 07/21/17 at 18:48; Status DC Vitamin D (Vitamin D3) 50,000 unit WEEKLY PO Last administered on 08/03/17at 08: 10; Start 07/20/17 at 20:00 Atorvastatin Calcium (Lipitor) 20 mg QHS PO ; Start 07/20/17 at 21:00; Stop at 21:00; Status DC Atorvastatin Calcium (Lipitor) 10 mg QHS PO Last administered on 07/23/17at 19:37 ; Start 07/21/17 at 21:00; Stop 07/24/17 at 14:27; Status DC Trazodone HCl (Desyrel) 100 mg PRN QHS PRN PO INSOMNIA Last administered on 07/23at 00:33; Start 07/21/17 at 19:00; Stop 07/23/17 at 18:46; Status DC Trazodone HCl (Desyrel) 100 mg QHS PO Last administered on 07/21/17at 19:58; Start 07/21/17 at 21:00; Stop 07/23/17 at 18:46; Status DC Mirtazapine (Remeron) 15 mg QHS PO ; Start 07/21/17 at 21:00; Stop 07/21/17 at 21: 00; Status DC Olanzapine (ZyPREXA ZYDIS) 5 mg PRN Q2HR PRN PO PSYCHOSIS Last administered on 07/22/17 22:06; Start 07/22/17 at 21:45 Amitriptyline HCl (Elavil) 50 mg QHS PO ; Start 07/23/17 at 21:00; Stop 07/23/17 at 21:00; Status DC Amitriptyline HCl (Elavil) 50 mg QHS PO Last administered on 08/03/17 19:49; Start 07/22/17 at 22:00 Risperidone (RisperDAL) 0.5 mg DAILY PO Last administered on 07/25/17 08:24; Start 07/24/17 at 09:00; Stop 07/25/17 at 18:07; Status DC Risperidone (RisperDAL) 0.5 mg ONCE ONCE PO Last administered on 07/23/17 17: 37; Start 07/23/17 at 16:30; Stop 07/23/17 at 16:42; Status DC Trazodone HCl (Desyrel) 150 mg PRN QHS PRN PO INSOMNIA Last administered on 07/26at 01:23; Start 07/23/17 at 18:45 Trazodone HCl (Desyrel) 150 mg QHS PO Last administered on 08/03/17 19:49; Start 07/23/17 at 21:00 Potassium Chloride (Klor-Con) 20 meq DAILYWBKFT PO Last administered on 08:07; Start 07/25/17 at 08:00 Potassium Chloride (Klor-Con) 20 meq 1X ONCE PO Last administered on 07/24/17at 14:33; Start 07/24/17 at 14:30; Stop 07/24/17 at 14:31; Status DC Atorvastatin Calcium (Lipitor) 20 mg QHS PO Last administered on 08/03/17 19: 49; Start 07/24/17 at 21:00 Risperidone (RisperDAL) 0.75 mg DAILY PO Last administered on 08/03/17 08:06; Start 07/26/17 at 09:00 Amoxicillin (Amoxil) 250 mg [id number] PO Last administered on 08/03/17 19:49; Start 07/30/17 at 14:00; Stop 08/06/17 at 13:59 Lactobacillus Rhamnosus (Culturelle) 1 cap BID PO Last administered on at 19:49; Start 07/30/17 at 21:00; Stop 08/09/17 at 20:59 Melatonin 3 mg PRN QHS PRN PO INSOMNIA; Start 07/31/17 at 18:15; Stop 08/01/17 at 19:19; Status DC Melatonin 6 mg QHS PO Last administered on 08/03/17at 19:49; Start 08/01/17 at 19:45 Docusate Sodium (Colace) 100 mg BID PO Last administered on 08/03/17at 20:14; Start 08/03/17 at 21:00 Active Scripts Active Reported Seroquel (Quetiapine Fumarate) 25 Mg Tablet 12.5 Mg PO DAILY Robitussin Nighttime Cough Dm (Dextromethorphan Hb/Doxylamine) 237 Ml Liquid 10 Ml PO PRN Q6HRS PRN Levemir Flextouch (Insulin Detemir) 100 Unit/1 Ml Insuln.pen 10 Unit SQ HS Cosopt Eye Drops (Dorzolamide Hcl/Timolol Maleat) 10 Ml Drops 1 Ml OU BID Prednisolone Acetate 5 Ml Drops.susp 1 Ml OD DAILY Alprazolam 0.25 Mg Tablet 0.25 Mg PO BID PRN Systane 0.3-0.4% Eye Drops (Propylene Glycol/Peg 400) 15 Ml Drops 15 Ml OS PRN Hydrocodone-Apap 5-325 (Hydrocodone Bit/Acetaminophen) 1 Each Tablet 2 Tab PO PRN Q6HRS PRN Docusate Sodium 100 Mg Capsule 100 Mg PO PRN DAILY PRN Hydrocodone-Apap 5-325 (Hydrocodone Bit/Acetaminophen) 1 Each Tablet 1 Tab PO BID PRN Milk Of Magnesia (Magnesium Hydroxide) 400 Mg/5 Ml Oral.susp 2,400 Mg PO PRN DAILY PRN Bisacodyl 10 Mg Supp.rect 10 Mg RC PRN ALT PRN Simvastatin 10 Mg Tablet 10 Mg PO DAILY Namenda Xr (Memantine Hcl) 28 Mg Cap.spr.24 28 Mg PO DAILY Mirtazapine 15 Mg Tablet 7.5 Mg PO Mirtazapine 15 Mg Tablet 1 Tab PO QHS Metformin Hcl 500 Mg Tablet 500 Mg PO BIDWMEALS Lisinopril 40 Mg Tablet 40 Mg PO DAILY Glipizide 5 Mg Tablet 5 Mg PO BID Furosemide 20 Mg Tablet 20 Mg PO DAILY Donepezil Hcl 10 Mg Tablet 10 Mg PO DAILY Clonidine Hcl 0.2 Mg Tablet 0.2 Mg PO BID Citalopram Hbr (Citalopram Hydrobromide) 20 Mg Tablet 20 Mg PO DAILY Buspirone Hcl 10 Mg Tablet 10 Mg PO BID Aspirin Ec (Aspirin) 81 Mg Tablet.dr 81 Mg PO DAILY Amlodipine Besylate 10 Mg Tablet 10 Mg PO DAILY I have reviewed the current psychotropics carefully including drug interactions. Risk benefit ratio favors no change other than as noted in my dictated progress note. Diagnosis: Problems: (1) MDD (major depressive disorder) (2) Dementia with behavioral disturbance (3) Anxiety disorder (4) Impulse control disorder (5) Psychotic depression (6) Mild cognitive impairment HECTOR PLEITEZ MD Aug 03, 2017 20:23
--- NOTE | 2017-08-04 00:25 | PN ---
DATE: 08/02/2017 PSYCHIATRIC PROGRESS NOTE This is a late entry for 08/02/2017, covers elements not covered in my initial note of 08/02/2017. SUBJECTIVE: I met with the patient in the evening of 08/02/2017. The patient slept just 3 hours previous evening, compliant with her medications, withdrawn, spends much time in her room. REVIEW OF SYSTEMS: Ambulation impaired with walker. No CV, , pulmonary, eye system symptoms on review. MENTAL STATUS EXAM: Reasonably oriented. Speech coherent, abstraction fair, computation impaired, language function intact. Mood and affect showing improvement. IMPRESSION: Unchanged from initial note. PLAN: Continue current psychotropics, melatonin 6 mg at bedtime, trazodone p.r.n. insomnia, may need to increase these. MAN Yanira PLEITEZ MD DR: DINO/demetrio JOB#: [id number] / [id number]
[2017-08-04 05:58] VITALS: BP 143/76
[2017-08-04] MEDS: INSULIN ASPART 300 UNITS/3 ML INSULN.PEN SQ SCH ×3 (07:30→16:30)
[2017-08-04 08:20] LABS: BASO % 0 % (0-3); EOS # 0.1 x10^3/uL (0.0-0.7); EOS % 1 % (0-3); HEMATOCRIT 43.7 % (36.0-47.0); HEMOGLOBIN 14.7 g/dL (12.0-15.5); LYMPH # 1.8 x10^3/uL (1.0-4.8); LYMPH % 19 % (24-48); MEAN CORPUSCULAR HEMOGLOBIN 29 pg (25-35); MEAN CORPUSCULAR HGB CONC 34 g/dL (31-37); MEAN CORPUSCULAR VOLUME 86 fL (79-100); MONO # 0.9 x10^3/uL (0.0-1.1); MONO % 9 % (0-9); NEUT # 6.7 x10^3uL (1.8-7.7); NEUT % 70 % (31-73); PLATELET COUNT 311 x10^3/uL (140-400); RED BLOOD COUNT 5.11 x10^6/uL (3.50-5.40); RED CELL DISTRIBUTION WIDTH 13.7 % (11.5-14.5); WHITE BLOOD COUNT 9.5 x10^3/uL (4.0-11.0)
[2017-08-04] MEDS: busPIRone 10 MG TABLET. PO SCH ×2 (08:50→19:25)
[2017-08-04] MEDS: DONEPEZIL HCL 10 MG TABLET PO SCH (08:50)
[2017-08-04] MEDS: AMOXICILLIN 250 MG CAPSULE PO SCH ×3 (08:50→19:24)
[2017-08-04] MEDS: risperiDONE 0.5 MG TABLET. PO SCH (08:50)
[2017-08-04] MEDS: glipiZIDE 5 MG TABLET PO SCH ×2 (08:51→19:25)
[2017-08-04] MEDS: MEMANTINE 10 MG TABLET. PO SCH ×2 (08:51→19:25)
[2017-08-04] MEDS: LISINOPRIL 20 MG TABLET PO SCH (08:51)
[2017-08-04] MEDS: POTASSIUM CHLORIDE 20 MEQ TABLET.ER. PO SCH (08:51)
[2017-08-04] MEDS: DOCUSATE SODIUM 100 MG CAPSULE PO SCH ×2 (08:52→19:24)
[2017-08-04] MEDS: FUROSEMIDE 20 MG TABLET PO SCH (08:52)
[2017-08-04] MEDS: metFORMIN 500 MG TABLET PO SCH ×2 (08:52→17:10)
[2017-08-04] MEDS: ASPIRIN ENTERIC COATED 81 MG TABLET.DR. PO SCH (08:52)
[2017-08-04] MEDS: amLODIPine BESYLATE 10 MG TABLET PO SCH (08:52)
[2017-08-04] MEDS: CITALOPRAM 20 MG TABLET. PO SCH (08:53)
[2017-08-04] MEDS: cloNIDine HCL 0.2 MG TABLET PO SCH ×2 (08:53→19:25)
[2017-08-04] MEDS: LACTOBACILLUS RHAMNOSUS GG 1 CAPSULE. PO SCH ×2 (08:53→19:25)
[2017-08-04] MEDS: DORZOLAMIDE/TIMOLOL 2%/0.5% OPHTH SOLUTION 10ML BOTTLE. OU SCH ×2 (08:54→19:25)
[2017-08-04] MEDS: prednisoLONE ACETATE 1% OPHTH SUSPENSION 5ML BOTTLE. OD SCH (08:54)
[2017-08-04 08:56] LABS: ALBUMIN 3.8 g/dL (3.4-5.0); ALBUMIN/GLOBULIN RATIO 0.9 (1.0-1.7); CALCIUM 9.3 mg/dL (8.5-10.1); CREATININE 0.8 mg/dL (0.6-1.0); GFR 71.8; POTASSIUM 3.9 mmol/L (3.5-5.1); TOTAL BILIRUBIN 0.5 mg/dL (0.2-1.0); TOTAL PROTEIN 8.1 g/dL (6.4-8.2)
[2017-08-04 15:44] VITALS: BP 151/82
[2017-08-04] MEDS: traZODone 100 MG TABLET. PO SCH ×2 (19:24→22:48)
[2017-08-04] MEDS: ATORVASTATIN CALCIUM 20 MG TABLET PO SCH (19:24)
[2017-08-04] MEDS: AMITRIPTYLINE HCL 50 MG TABLET PO SCH (19:25)
[2017-08-04] MEDS: MELATONIN 3 MG TABLET PO SCH (19:25)
[2017-08-04] MEDS: INSULIN DETEMIR 300 UNITS/3 ML INSULN.PEN. SQ SCH (19:36)
--- NOTE | 2017-08-04 20:29 | PDOC ---
Exam Note: [place]ney Note: Please also refer to the separate dictated note~for this date of service dictated separately.~Patient seen individually. Discussed the patient with Nursing staff reviewed the chart.~Reviewed interim history and current functioning. Reviewed vital signs,~Labs/ Radiology~and current medications noted below. Continue current treatment with the changes noted in the dictated addendum note Assessment: Vital Signs: Vital Signs Date Time Temp Pulse Resp B/P (MAP) Pulse Ox O2 Delivery O2 Flow Rate FiO2 08/04/17 19:25 83 151/82 08/04/17 15:44 98.4 20 95 08/03/17 16:21 Room Air I&O Intake and Output 08/04/17 07:00 Intake Total 840 ml Balance 840 ml Intake Oral 840 ml Labs: Laboratory Tests Test 08/04/17 07:29 08/04/17 07:55 08/04/17 11:42 08/04/17 17:03 Glucose (Fingerstick) 86 mg/dL (70-99) 161 mg/dL (70-99) H 123 mg/dL (70-99) H White Blood Count 9.5 x10^3/uL (4.0-11.0) Red Blood Count 5.11 x10^6/uL (3.50-5.40) Hemoglobin 14.7 g/dL (12.0-15.5) Hematocrit 43.7 % (36.0-47.0) Mean Corpuscular Volume 86 fL (79-100) Mean Corpuscular Hemoglobin 29 pg (25-35) Mean Corpuscular Hemoglobin Concent 34 g/dL (31-37) Red Cell Distribution Width 13.7 % (11.5-14.5) Platelet Count 311 x10^3/uL (140-400) Neutrophils (%) (Auto) 70 % (31-73) Lymphocytes (%) (Auto) 19 % (24-48) L Monocytes (%) (Auto) 9 % (0-9) Eosinophils (%) (Auto) 1 % (0-3) Basophils (%) (Auto) 0 % (0-3) Neutrophils # (Auto) 6.7 x10^3uL (1.8-7.7) Lymphocytes # (Auto) 1.8 x10^3/uL (1.0-4.8) Monocytes # (Auto) 0.9 x10^3/uL (0.0-1.1) Eosinophils # (Auto) 0.1 x10^3/uL (0.0-0.7) Basophils # (Auto) 0.0 x10^3/uL (0.0-0.2) Sodium Level 141 mmol/L (136-145) Potassium Level 3.9 mmol/L (3.5-5.1) Chloride Level 105 mmol/L (98-107) Carbon Dioxide Level 25 mmol/L (21-32) Anion Gap 11 (6-14) Blood Urea Nitrogen 16 mg/dL (7-20) Creatinine 0.8 mg/dL (0.6-1.0) Estimated GFR (Cockcroft-Gault) 71.8 BUN/Creatinine Ratio 20 (6-20) Glucose Level 94 mg/dL (70-99) Calcium Level 9.3 mg/dL (8.5-10.1) Magnesium Level 2.0 mg/dL (1.8-2.4) Total Bilirubin 0.5 mg/dL (0.2-1.0) Aspartate Amino Transferase (AST) 21 U/L (15-37) Alanine Aminotransferase (ALT) 39 U/L (14-59) Alkaline Phosphatase 112 U/L (46-116) Total Protein 8.1 g/dL (6.4-8.2) Albumin 3.8 g/dL (3.4-5.0) Albumin/Globulin Ratio 0.9 (1.0-1.7) L Test 08/04/17 19:34 Glucose (Fingerstick) 133 mg/dL (70-99) H Current Medications: Meds: Current Medications Lorazepam (Ativan) 0.5 mg 1X ONCE IV ; Start 07/19/17 at 21:00; Stop 07/19/17 at 21:00; Status DC Lorazepam (Ativan) 1 mg 1X ONCE PO Last administered on 07/19/17at 21:06; Start 07/19/17 at 21:00; Stop 07/19/17 at 21:04; Status DC Multi-Ingredient Ointment (Analgesic [place]) 1 geraldine PRN QID PRN TP MUSCLE PAIN; Start 07/19/17 at 21:45 Al Hydroxide/Mg Hydroxide (Mylanta Plus Xs) 15 ml PRN AFTMEALHC PRN PO DYSPEPSIA; Start 07/19/17 at 21:45 Magnesium Hydroxide (Milk Of Magnesia) 2,400 mg PRN QHS PRN PO CONSTIPATION; Start 07/19/17 at 21:45 Olanzapine (ZyPREXA ZYDIS) 2.5 mg PRN Q2HR PRN PO PSYCHOSIS Last administered on 07/22/17 20:45; Start 07/19/17 at 22:00; Stop 07/22/17 at 21:34; Status DC Alprazolam (Xanax) 0.25 mg PRN BID PRN PO ANXIETY / AGITATION Last administered on 07/22/17 20:45; Start 07/19/17 at 22:30 Buspirone HCl (Buspar) 10 mg BID PO Last administered on 08/04/17 19:25; Start 07/20/17 at 09:00 Citalopram Hydrobromide (CeleXA) 20 mg DAILY PO Last administered on 08/04/17 08:53; Start 07/20/17 at 09:00 Donepezil HCl (Aricept) 10 mg DAILY PO Last administered on 08/04/17 08:50; Start 07/20/17 at 09:00 Mirtazapine (Remeron) 15 mg QHS PO Last administered on 07/21/17 19:55; Start 07/20/17 at 21:00; Stop 07/22/17 at 21:34; Status DC Memantine (Namenda) 10 mg BID PO Last administered on 08/04/17 19:25; Start at 09:00 Amlodipine Besylate (Norvasc) 10 mg DAILY PO Last administered on 08/04/17 08: 52; Start 07/20/17 at 09:00 Aspirin (Aspirin Enteric Coated) 81 mg DAILY PO Last administered on 08/04/17 08:52; Start 07/20/17 at 09:00 Bisacodyl (Dulcolax Supp) 10 mg PRN ALT PRN RC CONSTIPATION; Start 07/20/17 at 07:15 Clonidine HCl (Catapres) 0.2 mg BID PO Last administered on 08/04/17 19:25; Start 07/20/17 at 09:00 Docusate Sodium (Colace) 100 mg PRN DAILY PRN PO CONSTIPATION; Start 07/20/17 at 07:15 Dorzolamide/ Timolol (Cosopt) 1 drop BID OU Last administered on 08/04/17 19: 25; Start 07/20/17 at 09:00 Furosemide (Lasix) 20 mg DAILY PO Last administered on 08/04/17at 08:52; Start 07/20/17 at 09:00 Glipizide (Glucotrol) 5 mg BID PO Last administered on 08/04/17 19:25; Start 07/20/17 at 09:00 Acetaminophen/ Hydrocodone Bitart (Lortab 5/325) 1 tab PRN BID PRN PO PAIN Last administered on 07/26/17 01:23; Start 07/20/17 at 07:15 Insulin Detemir (Levemir) 10 units HS SQ Last administered on 08/04/17at 19:36; Start 07/20/17 at 21:00 Magnesium Hydroxide (Milk Of Magnesia) 400 mg PRN DAILY PRN PO CONSTIPATION; Start 07/20/17 at 07:15; Stop 07/21/17 at 02:10; Status DC Metformin HCl (Glucophage) 500 mg BIDWMEALS PO Last administered on 08/04/17 17:10; Start 07/20/17 at 08:00 Prednisolone Acetate (Pred Forte) 1 drop DAILY OD Last administered on at 08:54; Start 07/20/17 at 09:00 Simvastatin (Zocor) 10 mg QHS PO Last administered on 07/20/17at 19:38; Start 07/20/17 at 21:00; Stop 07/21/17 at 17:31; Status DC Non-Formulary Medication 10 ml PRN Q6HRS PRN PO COUGH; Start 07/20/17 at 07:15; Stop 07/20/17 at 08:02; Status DC Lisinopril (Prinivil) 40 mg DAILY PO Last administered on 08/04/17at 08:51; Start 07/20/17 at 09:00 Insulin Aspart (NovoLOG) 0-5 UNITS TIDBFRMEAL SQ Last administered on at 12:11; Start 07/20/17 at 07:30 Dextrose 12.5 gm PRN Q15MIN PRN IV SEE COMMENTS; Start 07/20/17 at 07:30 Lorazepam (Ativan) 1 mg STK-MED ONCE .ROUTE ; Start 07/19/17 at 21:04; Stop 07/20 at 08:44; Status DC Acetaminophen (Tylenol) 650 mg PRN Q6HRS PRN PO PAIN / TEMP; Start 07/20/17 at 17:15; Stop 07/20/17 at 17:15; Status DC Multi-Ingredient Ointment (Analgesic [place]) 1 geraldine PRN QID PRN TP MUSCLE PAIN; Start 07/20/17 at 17:15; Stop 07/20/17 at 17:15; Status DC Al Hydroxide/Mg Hydroxide (Mylanta Plus Xs) 15 ml PRN AFTMEALHC PRN PO DYSPEPSIA; Start 07/20/17 at 17:15; Stop 07/20/17 at 17:15; Status DC Magnesium Hydroxide (Milk Of Magnesia) 2,400 mg PRN QHS PRN PO CONSTIPATION; Start 07/20/17 at 17:15; Stop 07/20/17 at 17:15; Status DC Trazodone HCl (Desyrel) 50 mg QHS PO Last administered on 07/20/17at 19:38; Start 07/20/17 at 21:00; Stop 07/21/17 at 18:48; Status DC Trazodone HCl (Desyrel) 50 mg PRN QHS PRN PO INSOMNIA Last administered on at 00:47; Start 07/20/17 at 21:00; Stop 07/21/17 at 18:48; Status DC Vitamin D (Vitamin D3) 50,000 unit WEEKLY PO Last administered on 08/03/17at 08: 10; Start 07/20/17 at 20:00 Atorvastatin Calcium (Lipitor) 20 mg QHS PO ; Start 07/20/17 at 21:00; Stop at 21:00; Status DC Atorvastatin Calcium (Lipitor) 10 mg QHS PO Last administered on 07/23/17at 19:37 ; Start 07/21/17 at 21:00; Stop 07/24/17 at 14:27; Status DC Trazodone HCl (Desyrel) 100 mg PRN QHS PRN PO INSOMNIA Last administered on 07/23at 00:33; Start 07/21/17 at 19:00; Stop 07/23/17 at 18:46; Status DC Trazodone HCl (Desyrel) 100 mg QHS PO Last administered on 07/21/17at 19:58; Start 07/21/17 at 21:00; Stop 07/23/17 at 18:46; Status DC Mirtazapine (Remeron) 15 mg QHS PO ; Start 07/21/17 at 21:00; Stop 07/21/17 at 21: 00; Status DC Olanzapine (ZyPREXA ZYDIS) 5 mg PRN Q2HR PRN PO PSYCHOSIS Last administered on 07/22/17 22:06; Start 07/22/17 at 21:45 Amitriptyline HCl (Elavil) 50 mg QHS PO ; Start 07/23/17 at 21:00; Stop 07/23/17 at 21:00; Status DC Amitriptyline HCl (Elavil) 50 mg QHS PO Last administered on 08/04/17 19:25; Start 07/22/17 at 22:00 Risperidone (RisperDAL) 0.5 mg DAILY PO Last administered on 07/25/17at 08:24; Start 07/24/17 at 09:00; Stop 07/25/17 at 18:07; Status DC Risperidone (RisperDAL) 0.5 mg ONCE ONCE PO Last administered on 07/23/17 17: 37; Start 07/23/17 at 16:30; Stop 07/23/17 at 16:42; Status DC Trazodone HCl (Desyrel) 150 mg PRN QHS PRN PO INSOMNIA Last administered on 07/26at 01:23; Start 07/23/17 at 18:45 Trazodone HCl (Desyrel) 150 mg QHS PO Last administered on 08/04/17 19:24; Start 07/23/17 at 21:00 Potassium Chloride (Klor-Con) 20 meq DAILYWBKFT PO Last administered on at 08:51; Start 07/25/17 at 08:00 Potassium Chloride (Klor-Con) 20 meq 1X ONCE PO Last administered on 07/24/17at 14:33; Start 07/24/17 at 14:30; Stop 07/24/17 at 14:31; Status DC Atorvastatin Calcium (Lipitor) 20 mg QHS PO Last administered on 08/04/17 19: 24; Start 07/24/17 at 21:00 Risperidone (RisperDAL) 0.75 mg DAILY PO Last administered on 08/04/17at 08:50; Start 07/26/17 at 09:00 Amoxicillin (Amoxil) 250 mg [id number] PO Last administered on 08/04/17 19:24; Start 07/30/17 at 14:00; Stop 08/06/17 at 13:59 Lactobacillus Rhamnosus (Culturelle) 1 cap BID PO Last administered on 19:25; Start 07/30/17 at 21:00; Stop 08/09/17 at 20:59 Melatonin 3 mg PRN QHS PRN PO INSOMNIA; Start 07/31/17 at 18:15; Stop 08/01/17 at 19:19; Status DC Melatonin 6 mg QHS PO Last administered on 08/04/17 19:25; Start 08/01/17 at 19:45 Docusate Sodium (Colace) 100 mg BID PO Last administered on 08/04/17 19:24; Start 08/03/17 at 21:00 Active Scripts Active Reported Seroquel (Quetiapine Fumarate) 25 Mg Tablet 12.5 Mg PO DAILY Robitussin Nighttime Cough Dm (Dextromethorphan Hb/Doxylamine) 237 Ml Liquid 10 Ml PO PRN Q6HRS PRN Levemir Flextouch (Insulin Detemir) 100 Unit/1 Ml Insuln.pen 10 Unit SQ HS Cosopt Eye Drops (Dorzolamide Hcl/Timolol Maleat) 10 Ml Drops 1 Ml OU BID Prednisolone Acetate 5 Ml Drops.susp 1 Ml OD DAILY Alprazolam 0.25 Mg Tablet 0.25 Mg PO BID PRN Systane 0.3-0.4% Eye Drops (Propylene Glycol/Peg 400) 15 Ml Drops 15 Ml OS PRN Hydrocodone-Apap 5-325 (Hydrocodone Bit/Acetaminophen) 1 Each Tablet 2 Tab PO PRN Q6HRS PRN Docusate Sodium 100 Mg Capsule 100 Mg PO PRN DAILY PRN Hydrocodone-Apap 5-325 (Hydrocodone Bit/Acetaminophen) 1 Each Tablet 1 Tab PO BID PRN Milk Of Magnesia (Magnesium Hydroxide) 400 Mg/5 Ml Oral.susp 2,400 Mg PO PRN DAILY PRN Bisacodyl 10 Mg Supp.rect 10 Mg RC PRN ALT PRN Simvastatin 10 Mg Tablet 10 Mg PO DAILY Namenda Xr (Memantine Hcl) 28 Mg Cap.spr.24 28 Mg PO DAILY Mirtazapine 15 Mg Tablet 7.5 Mg PO Mirtazapine 15 Mg Tablet 1 Tab PO QHS Metformin Hcl 500 Mg Tablet 500 Mg PO BIDWMEALS Lisinopril 40 Mg Tablet 40 Mg PO DAILY Glipizide 5 Mg Tablet 5 Mg PO BID Furosemide 20 Mg Tablet 20 Mg PO DAILY Donepezil Hcl 10 Mg Tablet 10 Mg PO DAILY Clonidine Hcl 0.2 Mg Tablet 0.2 Mg PO BID Citalopram Hbr (Citalopram Hydrobromide) 20 Mg Tablet 20 Mg PO DAILY Buspirone Hcl 10 Mg Tablet 10 Mg PO BID Aspirin Ec (Aspirin) 81 Mg Tablet.dr 81 Mg PO DAILY Amlodipine Besylate 10 Mg Tablet 10 Mg PO DAILY I have reviewed the current psychotropics carefully including drug interactions. Risk benefit ratio favors no change other than as noted in my dictated progress note. Diagnosis: Problems: (1) MDD (major depressive disorder) (2) Dementia with behavioral disturbance (3) Anxiety disorder (4) Impulse control disorder (5) Psychotic depression (6) Mild cognitive impairment HECTOR PLEITEZ MD Aug 04, 2017 20:29
[2017-08-05] MEDS ORDERED: AMIT50TA PO (02:10)
[2017-08-05] MEDS ORDERED: ATOR20TA58 PO (02:13)
[2017-08-05] MEDS ORDERED: CHOL500021 PO (02:14)
[2017-08-05] MEDS ORDERED: INSU100I17 SQ (02:19)
[2017-08-05] MEDS ORDERED: LACT1CAP21 PO (02:25)
[2017-08-05] MEDS ORDERED: MAG30ORA2 PO (02:27)
[2017-08-05] MEDS ORDERED: MELA3TAB2 PO (02:27)
[2017-08-05] MEDS ORDERED: METH29OI TP (02:29)
[2017-08-05] MEDS ORDERED: OLAN5TAB5 PO (02:29)
[2017-08-05] MEDS ORDERED: POTA20TA4 PO (02:30)
[2017-08-05] MEDS ORDERED: RISP0.5T24 PO (02:34)
[2017-08-05] MEDS ORDERED: TRAZ150T49 PO ×2 (02:35)
[2017-08-05 06:01] VITALS: BP 158/85
[2017-08-05] MEDS: INSULIN ASPART 300 UNITS/3 ML INSULN.PEN SQ SCH ×3 (07:44→16:54)
[2017-08-05] MEDS: metFORMIN 500 MG TABLET PO SCH ×2 (08:36→17:16)
[2017-08-05] MEDS: DONEPEZIL HCL 10 MG TABLET PO SCH (08:37)
[2017-08-05] MEDS: DORZOLAMIDE/TIMOLOL 2%/0.5% OPHTH SOLUTION 10ML BOTTLE. OU SCH ×2 (08:37→20:13)
[2017-08-05] MEDS: ASPIRIN ENTERIC COATED 81 MG TABLET.DR. PO SCH (08:37)
[2017-08-05] MEDS: busPIRone 10 MG TABLET. PO SCH ×2 (08:37→20:12)
[2017-08-05] MEDS: POTASSIUM CHLORIDE 20 MEQ TABLET.ER. PO SCH (08:37)
[2017-08-05] MEDS: prednisoLONE ACETATE 1% OPHTH SUSPENSION 5ML BOTTLE. OD SCH (08:37)
[2017-08-05] MEDS: AMOXICILLIN 250 MG CAPSULE PO SCH ×3 (08:37→20:12)
[2017-08-05] MEDS: DOCUSATE SODIUM 100 MG CAPSULE PO SCH ×2 (08:38→20:12)
[2017-08-05] MEDS: cloNIDine HCL 0.2 MG TABLET PO SCH ×2 (08:38→20:12)
[2017-08-05] MEDS: CITALOPRAM 20 MG TABLET. PO SCH (08:38)
[2017-08-05] MEDS: amLODIPine BESYLATE 10 MG TABLET PO SCH (08:39)
[2017-08-05] MEDS: MEMANTINE 10 MG TABLET. PO SCH ×2 (08:39→20:12)
[2017-08-05] MEDS: FUROSEMIDE 20 MG TABLET PO SCH (08:39)
[2017-08-05] MEDS: glipiZIDE 5 MG TABLET PO SCH ×2 (08:39→20:12)
[2017-08-05] MEDS: LACTOBACILLUS RHAMNOSUS GG 1 CAPSULE. PO SCH ×2 (08:39→20:12)
[2017-08-05] MEDS: risperiDONE 0.5 MG TABLET. PO SCH (08:40)
[2017-08-05] MEDS: LISINOPRIL 20 MG TABLET PO SCH (08:40)
[2017-08-05 15:53] VITALS: BP 118/66
[2017-08-05] MEDS: MELATONIN 3 MG TABLET PO SCH (20:12)
[2017-08-05] MEDS: ATORVASTATIN CALCIUM 20 MG TABLET PO SCH (20:12)
[2017-08-05] MEDS: traZODone 100 MG TABLET. PO SCH (20:12)
[2017-08-05] MEDS: AMITRIPTYLINE HCL 50 MG TABLET PO SCH (20:13)
[2017-08-05] MEDS: INSULIN DETEMIR 300 UNITS/3 ML INSULN.PEN. SQ SCH (20:14)
--- NOTE | 2017-08-05 22:42 | PDOC ---
Exam Note: [place]ney Note: Please also refer to the separate dictated note~for this date of service dictated separately.~Patient seen individually. Discussed the patient with Nursing staff reviewed the chart.~Reviewed interim history and current functioning. Reviewed vital signs,~Labs/ Radiology~and current medications noted below. Continue current treatment with the changes noted in the dictated addendum note Assessment: Vital Signs: Vital Signs Date Time Temp Pulse Resp B/P (MAP) Pulse Ox O2 Delivery O2 Flow Rate FiO2 08/05/17 20:12 85 118/66 08/05/17 15:53 97.9 18 94 Room Air I&O Intake and Output 08/05/17 07:00 Intake Total 960 ml Balance 960 ml Intake Oral 960 ml Labs: Laboratory Tests Test 08/05/17 07:41 08/05/17 11:23 08/05/17 16:17 08/05/17 19:18 Glucose (Fingerstick) 100 mg/dL (70-99) H 124 mg/dL (70-99) H 92 mg/dL (70-99) 126 mg/dL (70-99) H Current Medications: Meds: Current Medications Lorazepam (Ativan) 0.5 mg 1X ONCE IV ; Start 07/19/17 at 21:00; Stop 07/19/17 at 21:00; Status DC Lorazepam (Ativan) 1 mg 1X ONCE PO Last administered on 07/19/17at 21:06; Start 07/19/17 at 21:00; Stop 07/19/17 at 21:04; Status DC Multi-Ingredient Ointment (Analgesic [place]) 1 aldair PRN QID PRN TP MUSCLE PAIN; Start 07/19/17 at 21:45 Al Hydroxide/Mg Hydroxide (Mylanta Plus Xs) 15 ml PRN AFTMEALHC PRN PO DYSPEPSIA; Start 07/19/17 at 21:45 Magnesium Hydroxide (Milk Of Magnesia) 2,400 mg PRN QHS PRN PO CONSTIPATION; Start 07/19/17 at 21:45 Olanzapine (ZyPREXA ZYDIS) 2.5 mg PRN Q2HR PRN PO PSYCHOSIS Last administered on 07/22/17at 20:45; Start 07/19/17 at 22:00; Stop 07/22/17 at 21:34; Status DC Alprazolam (Xanax) 0.25 mg PRN BID PRN PO ANXIETY / AGITATION Last administered on 07/22/17 20:45; Start 07/19/17 at 22:30 Buspirone HCl (Buspar) 10 mg BID PO Last administered on 08/05/17 20:12; Start 07/20/17 at 09:00 Citalopram Hydrobromide (CeleXA) 20 mg DAILY PO Last administered on 08/05/17 08:38; Start 07/20/17 at 09:00 Donepezil HCl (Aricept) 10 mg DAILY PO Last administered on 08/05/17 08:37; Start 07/20/17 at 09:00 Mirtazapine (Remeron) 15 mg QHS PO Last administered on 07/21/17 19:55; Start 07/20/17 at 21:00; Stop 07/22/17 at 21:34; Status DC Memantine (Namenda) 10 mg BID PO Last administered on 08/05/17 20:12; Start at 09:00 Amlodipine Besylate (Norvasc) 10 mg DAILY PO Last administered on 08/05/17 08: 39; Start 07/20/17 at 09:00 Aspirin (Aspirin Enteric Coated) 81 mg DAILY PO Last administered on 08/05/17 08:37; Start 07/20/17 at 09:00 Bisacodyl (Dulcolax Supp) 10 mg PRN ALT PRN RC CONSTIPATION; Start 07/20/17 at 07:15 Clonidine HCl (Catapres) 0.2 mg BID PO Last administered on 08/05/17 20:12; Start 07/20/17 at 09:00 Docusate Sodium (Colace) 100 mg PRN DAILY PRN PO CONSTIPATION; Start 07/20/17 at 07:15 Dorzolamide/ Timolol (Cosopt) 1 drop BID OU Last administered on 08/05/17 20: 13; Start 07/20/17 at 09:00 Furosemide (Lasix) 20 mg DAILY PO Last administered on 08/05/17 08:39; Start 07/20/17 at 09:00 Glipizide (Glucotrol) 5 mg BID PO Last administered on 08/05/17 20:12; Start 07/20/17 at 09:00 Acetaminophen/ Hydrocodone Bitart (Lortab 5/325) 1 tab PRN BID PRN PO PAIN Last administered on 07/26/17at 01:23; Start 07/20/17 at 07:15 Insulin Detemir (Levemir) 10 units HS SQ Last administered on 08/05/17at 20:14; Start 07/20/17 at 21:00 Magnesium Hydroxide (Milk Of Magnesia) 400 mg PRN DAILY PRN PO CONSTIPATION; Start 07/20/17 at 07:15; Stop 07/21/17 at 02:10; Status DC Metformin HCl (Glucophage) 500 mg BIDWMEALS PO Last administered on 08/05/17at 17:16; Start 07/20/17 at 08:00 Prednisolone Acetate (Pred Forte) 1 drop DAILY OD Last administered on at 08:37; Start 07/20/17 at 09:00 Simvastatin (Zocor) 10 mg QHS PO Last administered on 07/20/17at 19:38; Start 07/20/17 at 21:00; Stop 07/21/17 at 17:31; Status DC Non-Formulary Medication 10 ml PRN Q6HRS PRN PO COUGH; Start 07/20/17 at 07:15; Stop 07/20/17 at 08:02; Status DC Lisinopril (Prinivil) 40 mg DAILY PO Last administered on 08/05/17at 08:40; Start 07/20/17 at 09:00 Insulin Aspart (NovoLOG) 0-5 UNITS TIDBFRMEAL SQ Last administered on at 12:11; Start 07/20/17 at 07:30 Dextrose 12.5 gm PRN Q15MIN PRN IV SEE COMMENTS; Start 07/20/17 at 07:30 Lorazepam (Ativan) 1 mg STK-MED ONCE .ROUTE ; Start 07/19/17 at 21:04; Stop 07/20 at 08:44; Status DC Acetaminophen (Tylenol) 650 mg PRN Q6HRS PRN PO PAIN / TEMP; Start 07/20/17 at 17:15; Stop 07/20/17 at 17:15; Status DC Multi-Ingredient Ointment (Analgesic [place]) 1 aldair PRN QID PRN TP MUSCLE PAIN; Start 07/20/17 at 17:15; Stop 07/20/17 at 17:15; Status DC Al Hydroxide/Mg Hydroxide (Mylanta Plus Xs) 15 ml PRN AFTMEALHC PRN PO DYSPEPSIA; Start 07/20/17 at 17:15; Stop 07/20/17 at 17:15; Status DC Magnesium Hydroxide (Milk Of Magnesia) 2,400 mg PRN QHS PRN PO CONSTIPATION; Start 07/20/17 at 17:15; Stop 07/20/17 at 17:15; Status DC Trazodone HCl (Desyrel) 50 mg QHS PO Last administered on 07/20/17at 19:38; Start 07/20/17 at 21:00; Stop 07/21/17 at 18:48; Status DC Trazodone HCl (Desyrel) 50 mg PRN QHS PRN PO INSOMNIA Last administered on at 00:47; Start 07/20/17 at 21:00; Stop 07/21/17 at 18:48; Status DC Vitamin D (Vitamin D3) 50,000 unit WEEKLY PO Last administered on 08/03/17at 08: 10; Start 07/20/17 at 20:00 Atorvastatin Calcium (Lipitor) 20 mg QHS PO ; Start 07/20/17 at 21:00; Stop at 21:00; Status DC Atorvastatin Calcium (Lipitor) 10 mg QHS PO Last administered on 07/23/17at 19:37 ; Start 07/21/17 at 21:00; Stop 07/24/17 at 14:27; Status DC Trazodone HCl (Desyrel) 100 mg PRN QHS PRN PO INSOMNIA Last administered on 07/23at 00:33; Start 07/21/17 at 19:00; Stop 07/23/17 at 18:46; Status DC Trazodone HCl (Desyrel) 100 mg QHS PO Last administered on 07/21/17at 19:58; Start 07/21/17 at 21:00; Stop 07/23/17 at 18:46; Status DC Mirtazapine (Remeron) 15 mg QHS PO ; Start 07/21/17 at 21:00; Stop 07/21/17 at 21: 00; Status DC Olanzapine (ZyPREXA ZYDIS) 5 mg PRN Q2HR PRN PO PSYCHOSIS Last administered on 07/22/17 22:06; Start 07/22/17 at 21:45 Amitriptyline HCl (Elavil) 50 mg QHS PO ; Start 07/23/17 at 21:00; Stop 07/23/17 at 21:00; Status DC Amitriptyline HCl (Elavil) 50 mg QHS PO Last administered on 08/05/17at 20:13; Start 07/22/17 at 22:00 Risperidone (RisperDAL) 0.5 mg DAILY PO Last administered on 07/25/17at 08:24; Start 07/24/17 at 09:00; Stop 07/25/17 at 18:07; Status DC Risperidone (RisperDAL) 0.5 mg ONCE ONCE PO Last administered on 07/23/17 17: 37; Start 07/23/17 at 16:30; Stop 07/23/17 at 16:42; Status DC Trazodone HCl (Desyrel) 150 mg PRN QHS PRN PO INSOMNIA Last administered on 07/26at 01:23; Start 07/23/17 at 18:45 Trazodone HCl (Desyrel) 150 mg QHS PO Last administered on 08/05/17 20:12; Start 07/23/17 at 21:00 Potassium Chloride (Klor-Con) 20 meq DAILYWBKFT PO Last administered on at 08:37; Start 07/25/17 at 08:00 Potassium Chloride (Klor-Con) 20 meq 1X ONCE PO Last administered on 07/24/17at 14:33; Start 07/24/17 at 14:30; Stop 07/24/17 at 14:31; Status DC Atorvastatin Calcium (Lipitor) 20 mg QHS PO Last administered on 08/05/17at 20: 12; Start 07/24/17 at 21:00 Risperidone (RisperDAL) 0.75 mg DAILY PO Last administered on 08/05/17at 08:40; Start 07/26/17 at 09:00 Amoxicillin (Amoxil) 250 mg [id number] PO Last administered on 08/05/17 20:12; Start 07/30/17 at 14:00; Stop 08/06/17 at 13:59 Lactobacillus Rhamnosus (Culturelle) 1 cap BID PO Last administered on at 20:12; Start 07/30/17 at 21:00; Stop 08/09/17 at 20:59 Melatonin 3 mg PRN QHS PRN PO INSOMNIA; Start 07/31/17 at 18:15; Stop 08/01/17 at 19:19; Status DC Melatonin 6 mg QHS PO Last administered on 08/05/17at 20:12; Start 08/01/17 at 19:45 Docusate Sodium (Colace) 100 mg BID PO Last administered on 08/05/17at 20:12; Start 08/03/17 at 21:00 Active Scripts Active Reported Trazodone Hcl 150 Mg Tablet 150 Mg PO PRN QHS PRN Trazodone Hcl 150 Mg Tablet 150 Mg PO QHS Risperdal (Risperidone) 0.5 Mg Tablet 0.75 Mg PO DAILY Klor-Con M20 (Potassium Chloride) 20 Meq Tab.er.prt 20 Meq PO DAILYWBKFT Zyprexa Zydis (Olanzapine) 5 Mg Tab.rapdis 5 Mg PO PRN Q2HR PRN Analgesic [place] (Methyl Salicylate/Menthol) 28 Gm Oint...g. 1 Aldair TP PRN QID PRN Melatonin 3 Mg Tablet 6 Mg PO QHS Mag-Al Plus Xs Suspension (Mag Hydrox/Al Hydrox/Simeth) 30 Ml Oral.susp 15 Ml PO PRN AFTMEALHC PRN Culturelle (Lactobacillus Rhamnosus Gg) 1 Each Capsule 1 Cap PO BID 3 Days Novolog Flexpen (Insulin Aspart) 100 Unit/1 Ml Insuln.pen 0-5 Unit SQ TIDBFRMEAL D3-50 (Cholecalciferol (Vitamin D3)) 50,000 Unit Capsule 50,000 Unit PO WEEKLY Atorvastatin Calcium 20 Mg Tablet 20 Mg PO QHS Amitriptyline Hcl 50 Mg Tablet 50 Mg PO QHS Seroquel (Quetiapine Fumarate) 25 Mg Tablet 12.5 Mg PO DAILY Robitussin Nighttime Cough Dm (Dextromethorphan Hb/Doxylamine) 237 Ml Liquid 10 Ml PO PRN Q6HRS PRN Levemir Flextouch (Insulin Detemir) 100 Unit/1 Ml Insuln.pen 10 Unit SQ HS Cosopt Eye Drops (Dorzolamide Hcl/Timolol Maleat) 10 Ml Drops 1 Ml OU BID Prednisolone Acetate 5 Ml Drops.susp 1 Ml OD DAILY Alprazolam 0.25 Mg Tablet 0.25 Mg PO BID PRN Systane 0.3-0.4% Eye Drops (Propylene Glycol/Peg 400) 15 Ml Drops 15 Ml OS PRN Hydrocodone-Apap 5-325 (Hydrocodone Bit/Acetaminophen) 1 Each Tablet 2 Tab PO PRN Q6HRS PRN Docusate Sodium 100 Mg Capsule 100 Mg PO PRN DAILY PRN Hydrocodone-Apap 5-325 (Hydrocodone Bit/Acetaminophen) 1 Each Tablet 1 Tab PO BID PRN Milk Of Magnesia (Magnesium Hydroxide) 400 Mg/5 Ml Oral.susp 2,400 Mg PO PRN DAILY PRN Bisacodyl 10 Mg Supp.rect 10 Mg RC PRN ALT PRN Simvastatin 10 Mg Tablet 10 Mg PO DAILY Namenda Xr (Memantine Hcl) 28 Mg Cap.spr.24 28 Mg PO DAILY Mirtazapine 15 Mg Tablet 7.5 Mg PO Mirtazapine 15 Mg Tablet 1 Tab PO QHS Metformin Hcl 500 Mg Tablet 500 Mg PO BIDWMEALS Lisinopril 40 Mg Tablet 40 Mg PO DAILY Glipizide 5 Mg Tablet 5 Mg PO BID Furosemide 20 Mg Tablet 20 Mg PO DAILY Donepezil Hcl 10 Mg Tablet 10 Mg PO DAILY Clonidine Hcl 0.2 Mg Tablet 0.2 Mg PO BID Citalopram Hbr (Citalopram Hydrobromide) 20 Mg Tablet 20 Mg PO DAILY Buspirone Hcl 10 Mg Tablet 10 Mg PO BID Aspirin Ec (Aspirin) 81 Mg Tablet. 81 Mg PO DAILY Amlodipine Besylate 10 Mg Tablet 10 Mg PO DAILY I have reviewed the current psychotropics carefully including drug interactions. Risk benefit ratio favors no change other than as noted in my dictated progress note. Diagnosis: Problems: (1) MDD (major depressive disorder) (2) Dementia with behavioral disturbance (3) Anxiety disorder (4) Impulse control disorder (5) Psychotic depression (6) Mild cognitive impairment HECTOR PLEITEZ MD Aug 05, 2017 22:42
--- NOTE | 2017-08-05 23:17 | PN ---
DATE: 08/03/2017 This is a late entry for 08/03/2017 and covers elements not covered in my initial note of 08/03/2017. I met with the patient the evening of 08/03/2017. The patient got agitated with nursing staff while they were checking BP, otherwise remains withdrawn, spends much time in her room, but redirectable. REVIEW OF SYSTEMS: No CV, , pulmonary, eye, ENT system symptoms on review. MENTAL STATUS EXAM: Oriented to herself and situation. Speech has moderate latency, coherent. Abstraction fair, computation impaired, language function intact. Mood and affect still withdrawn but improved. IMPRESSION: Unchanged from initial note. PLAN: No change from initial note. MAN Yanira PLEITEZ MD DR: DINO/demetrio JOB#: [id number] / [id number]
--- NOTE | 2017-08-06 01:01 | PN ---
DATE: 08/04/2017 This is a late entry for date of service 08/04/2017 and covers the elements not covered in my initial note of 08/04/2017. SUBJECTIVE: The patient slept 3-1/2 hours previous evening, fairly cooperative, came to the day room, otherwise spends much of the time in her room. REVIEW OF SYSTEMS: No CV, , pulmonary, eye, ENT system symptoms on review. MENTAL STATUS EXAM: Oriented to herself and situation. Speech has some latency, coherent. Abstraction fair, computation impaired, language function intact, attention span short. Mood and affect withdrawn. LABORATORY DATA: Reviewed. IMPRESSION: Unchanged from initial note. PLAN: Continue current psychotropics, adjust as indicated clinically. HECTOR PLEITEZ MD DR: DINO/demetrio JOB#: [id number] / [id number]
[2017-08-06 05:54] VITALS: BP 143/82
[2017-08-06] MEDS: INSULIN ASPART 300 UNITS/3 ML INSULN.PEN SQ SCH ×3 (07:30→17:26)
[2017-08-06] MEDS: FUROSEMIDE 20 MG TABLET PO SCH (08:42)
[2017-08-06] MEDS: ASPIRIN ENTERIC COATED 81 MG TABLET.DR. PO SCH (08:42)
[2017-08-06] MEDS: prednisoLONE ACETATE 1% OPHTH SUSPENSION 5ML BOTTLE. OD SCH (08:42)
[2017-08-06] MEDS: DONEPEZIL HCL 10 MG TABLET PO SCH (08:42)
[2017-08-06] MEDS: LACTOBACILLUS RHAMNOSUS GG 1 CAPSULE. PO SCH ×2 (08:42→19:34)
[2017-08-06] MEDS: glipiZIDE 5 MG TABLET PO SCH ×2 (08:42→19:34)
[2017-08-06] MEDS: DOCUSATE SODIUM 100 MG CAPSULE PO SCH ×2 (08:42→19:34)
[2017-08-06] MEDS: busPIRone 10 MG TABLET. PO SCH ×2 (08:43→19:34)
[2017-08-06] MEDS: LISINOPRIL 20 MG TABLET PO SCH (08:43)
[2017-08-06] MEDS: cloNIDine HCL 0.2 MG TABLET PO SCH ×2 (08:43→19:35)
[2017-08-06] MEDS: CITALOPRAM 20 MG TABLET. PO SCH (08:43)
[2017-08-06] MEDS: metFORMIN 500 MG TABLET PO SCH ×2 (08:44→17:25)
[2017-08-06] MEDS: MEMANTINE 10 MG TABLET. PO SCH ×2 (08:44→19:34)
[2017-08-06] MEDS: POTASSIUM CHLORIDE 20 MEQ TABLET.ER. PO SCH (08:44)
[2017-08-06] MEDS: amLODIPine BESYLATE 10 MG TABLET PO SCH (08:44)
[2017-08-06] MEDS: AMOXICILLIN 250 MG CAPSULE PO SCH (08:45)
[2017-08-06] MEDS: DORZOLAMIDE/TIMOLOL 2%/0.5% OPHTH SOLUTION 10ML BOTTLE. OU SCH ×2 (08:45→19:37)
[2017-08-06] MEDS: risperiDONE 0.5 MG TABLET. PO SCH (08:46)
[2017-08-06 15:58] VITALS: BP 158/85
[2017-08-06] MEDS: MELATONIN 3 MG TABLET PO SCH (19:34)
[2017-08-06] MEDS: AMITRIPTYLINE HCL 50 MG TABLET PO SCH (19:34)
[2017-08-06] MEDS: ATORVASTATIN CALCIUM 20 MG TABLET PO SCH (19:34)
[2017-08-06] MEDS: traZODone 100 MG TABLET. PO SCH (19:34)
[2017-08-06] MEDS: INSULIN DETEMIR 300 UNITS/3 ML INSULN.PEN. SQ SCH (19:36)
--- NOTE | 2017-08-06 20:44 | PN ---
DATE: 08/05/2017 PSYCHIATRIC PROGRESS NOTE This is a late entry on 08/05/2017 covers elements not covered in my initial note on 08/05/2017. SUBJECTIVE: I met with the patient in the evening of 08/05/2017. Today, the patient remains somewhat withdrawn, was irritable with nursing staff. Stated, "how would you feel if everyone calls you a liar." The patient spends much time in her room, which is where I met with her evening of 08/05/2017. REVIEW OF SYSTEMS: No CV, , pulmonary, eye, ENT system symptoms on review. MENTAL STATUS EXAM: Reasonably oriented. Speech is coherent, abstraction fair, computation impaired, language function intact, attention span short. Mood and affect withdrawn, but improved from earlier. No suicidal or homicidal ideation. IMPRESSION: Unchanged from initial review and initial note. PLAN: Continue psychotropics mentioned in my initial note. MAN Yanira PLEITEZ MD DR: DINO/demetrio JOB#: [id number] / [id number]
--- NOTE | 2017-08-06 20:44 | PDOC ---
Exam Note: Barney Note: Please also refer to the separate dictated note~for this date of service dictated separately.~Patient seen individually. Discussed the patient with Nursing staff reviewed the chart.~Reviewed interim history and current functioning. Reviewed vital signs,~Labs/ Radiology~and current medications noted below. Continue current treatment with the changes noted in the dictated addendum note Assessment: Vital Signs: Vital Signs Date Time Temp Pulse Resp B/P (MAP) Pulse Ox O2 Delivery O2 Flow Rate FiO2 08/06/17 19:35 98 158/85 08/06/17 15:58 97.8 18 96 08/05/17 15:53 Room Air I&O Intake and Output 08/06/17 07:00 Intake Total 480 ml Balance 480 ml Intake Oral 480 ml Labs: Laboratory Tests Test 08/06/17 07:25 08/06/17 12:13 08/06/17 17:09 08/06/17 19:11 Glucose (Fingerstick) 88 mg/dL (70-99) 115 mg/dL (70-99) H 178 mg/dL (70-99) H 158 mg/dL (70-99) H Current Medications: Meds: Current Medications Lorazepam (Ativan) 0.5 mg 1X ONCE IV ; Start 07/19/17 at 21:00; Stop 07/19/17 at 21:00; Status DC Lorazepam (Ativan) 1 mg 1X ONCE PO Last administered on 07/19/17at 21:06; Start 07/19/17 at 21:00; Stop 07/19/17 at 21:04; Status DC Multi-Ingredient Ointment (Analgesic [place]) 1 aldair PRN QID PRN TP MUSCLE PAIN; Start 07/19/17 at 21:45 Al Hydroxide/Mg Hydroxide (Mylanta Plus Xs) 15 ml PRN AFTMEALHC PRN PO DYSPEPSIA; Start 07/19/17 at 21:45 Magnesium Hydroxide (Milk Of Magnesia) 2,400 mg PRN QHS PRN PO CONSTIPATION; Start 07/19/17 at 21:45 Olanzapine (ZyPREXA ZYDIS) 2.5 mg PRN Q2HR PRN PO PSYCHOSIS Last administered on 07/22/17at 20:45; Start 07/19/17 at 22:00; Stop 07/22/17 at 21:34; Status DC Alprazolam (Xanax) 0.25 mg PRN BID PRN PO ANXIETY / AGITATION Last administered on 07/22/17 20:45; Start 07/19/17 at 22:30 Buspirone HCl (Buspar) 10 mg BID PO Last administered on 08/06/17 19:34; Start 07/20/17 at 09:00 Citalopram Hydrobromide (CeleXA) 20 mg DAILY PO Last administered on 08/06/17 08:43; Start 07/20/17 at 09:00 Donepezil HCl (Aricept) 10 mg DAILY PO Last administered on 08/06/17 08:42; Start 07/20/17 at 09:00 Mirtazapine (Remeron) 15 mg QHS PO Last administered on 07/21/17 19:55; Start 07/20/17 at 21:00; Stop 07/22/17 at 21:34; Status DC Memantine (Namenda) 10 mg BID PO Last administered on 08/06/17 19:34; Start at 09:00 Amlodipine Besylate (Norvasc) 10 mg DAILY PO Last administered on 08/06/17 08: 44; Start 07/20/17 at 09:00 Aspirin (Aspirin Enteric Coated) 81 mg DAILY PO Last administered on 08/06/17 08:42; Start 07/20/17 at 09:00 Bisacodyl (Dulcolax Supp) 10 mg PRN ALT PRN RC CONSTIPATION; Start 07/20/17 at 07:15 Clonidine HCl (Catapres) 0.2 mg BID PO Last administered on 08/06/17 19:35; Start 07/20/17 at 09:00 Docusate Sodium (Colace) 100 mg PRN DAILY PRN PO CONSTIPATION; Start 07/20/17 at 07:15 Dorzolamide/ Timolol (Cosopt) 1 drop BID OU Last administered on 08/06/17 19: 37; Start 07/20/17 at 09:00 Furosemide (Lasix) 20 mg DAILY PO Last administered on 08/06/17 08:42; Start 07/20/17 at 09:00 Glipizide (Glucotrol) 5 mg BID PO Last administered on 08/06/17 19:34; Start 07/20/17 at 09:00 Acetaminophen/ Hydrocodone Bitart (Lortab 5/325) 1 tab PRN BID PRN PO PAIN Last administered on 07/26/17at 01:23; Start 07/20/17 at 07:15 Insulin Detemir (Levemir) 10 units HS SQ Last administered on 08/06/17at 19:36; Start 07/20/17 at 21:00 Magnesium Hydroxide (Milk Of Magnesia) 400 mg PRN DAILY PRN PO CONSTIPATION; Start 07/20/17 at 07:15; Stop 07/21/17 at 02:10; Status DC Metformin HCl (Glucophage) 500 mg BIDWMEALS PO Last administered on 08/06/17at 17:25; Start 07/20/17 at 08:00 Prednisolone Acetate (Pred Forte) 1 drop DAILY OD Last administered on at 08:42; Start 07/20/17 at 09:00 Simvastatin (Zocor) 10 mg QHS PO Last administered on 07/20/17at 19:38; Start 07/20/17 at 21:00; Stop 07/21/17 at 17:31; Status DC Non-Formulary Medication 10 ml PRN Q6HRS PRN PO COUGH; Start 07/20/17 at 07:15; Stop 07/20/17 at 08:02; Status DC Lisinopril (Prinivil) 40 mg DAILY PO Last administered on 08/06/17at 08:43; Start 07/20/17 at 09:00 Insulin Aspart (NovoLOG) 0-5 UNITS TIDBFRMEAL SQ Last administered on at 17:26; Start 07/20/17 at 07:30 Dextrose 12.5 gm PRN Q15MIN PRN IV SEE COMMENTS; Start 07/20/17 at 07:30 Lorazepam (Ativan) 1 mg STK-MED ONCE .ROUTE ; Start 07/19/17 at 21:04; Stop 07/20 at 08:44; Status DC Acetaminophen (Tylenol) 650 mg PRN Q6HRS PRN PO PAIN / TEMP; Start 07/20/17 at 17:15; Stop 07/20/17 at 17:15; Status DC Multi-Ingredient Ointment (Analgesic [place]) 1 adlair PRN QID PRN TP MUSCLE PAIN; Start 07/20/17 at 17:15; Stop 07/20/17 at 17:15; Status DC Al Hydroxide/Mg Hydroxide (Mylanta Plus Xs) 15 ml PRN AFTMEALHC PRN PO DYSPEPSIA; Start 07/20/17 at 17:15; Stop 07/20/17 at 17:15; Status DC Magnesium Hydroxide (Milk Of Magnesia) 2,400 mg PRN QHS PRN PO CONSTIPATION; Start 07/20/17 at 17:15; Stop 07/20/17 at 17:15; Status DC Trazodone HCl (Desyrel) 50 mg QHS PO Last administered on 07/20/17at 19:38; Start 07/20/17 at 21:00; Stop 07/21/17 at 18:48; Status DC Trazodone HCl (Desyrel) 50 mg PRN QHS PRN PO INSOMNIA Last administered on at 00:47; Start 07/20/17 at 21:00; Stop 07/21/17 at 18:48; Status DC Vitamin D (Vitamin D3) 50,000 unit WEEKLY PO Last administered on 08/03/17at 08: 10; Start 07/20/17 at 20:00 Atorvastatin Calcium (Lipitor) 20 mg QHS PO ; Start 07/20/17 at 21:00; Stop at 21:00; Status DC Atorvastatin Calcium (Lipitor) 10 mg QHS PO Last administered on 07/23/17at 19:37 ; Start 07/21/17 at 21:00; Stop 07/24/17 at 14:27; Status DC Trazodone HCl (Desyrel) 100 mg PRN QHS PRN PO INSOMNIA Last administered on 07/23at 00:33; Start 07/21/17 at 19:00; Stop 07/23/17 at 18:46; Status DC Trazodone HCl (Desyrel) 100 mg QHS PO Last administered on 07/21/17at 19:58; Start 07/21/17 at 21:00; Stop 07/23/17 at 18:46; Status DC Mirtazapine (Remeron) 15 mg QHS PO ; Start 07/21/17 at 21:00; Stop 07/21/17 at 21: 00; Status DC Olanzapine (ZyPREXA ZYDIS) 5 mg PRN Q2HR PRN PO PSYCHOSIS Last administered on 07/22/17 22:06; Start 07/22/17 at 21:45 Amitriptyline HCl (Elavil) 50 mg QHS PO ; Start 07/23/17 at 21:00; Stop 07/23/17 at 21:00; Status DC Amitriptyline HCl (Elavil) 50 mg QHS PO Last administered on 08/06/17at 19:34; Start 07/22/17 at 22:00 Risperidone (RisperDAL) 0.5 mg DAILY PO Last administered on 07/25/17 08:24; Start 07/24/17 at 09:00; Stop 07/25/17 at 18:07; Status DC Risperidone (RisperDAL) 0.5 mg ONCE ONCE PO Last administered on 07/23/17at 17: 37; Start 07/23/17 at 16:30; Stop 07/23/17 at 16:42; Status DC Trazodone HCl (Desyrel) 150 mg PRN QHS PRN PO INSOMNIA Last administered on 07/26at 01:23; Start 07/23/17 at 18:45 Trazodone HCl (Desyrel) 150 mg QHS PO Last administered on 08/06/17 19:34; Start 07/23/17 at 21:00 Potassium Chloride (Klor-Con) 20 meq DAILYWBKFT PO Last administered on at 08:44; Start 07/25/17 at 08:00 Potassium Chloride (Klor-Con) 20 meq 1X ONCE PO Last administered on 07/24/17at 14:33; Start 07/24/17 at 14:30; Stop 07/24/17 at 14:31; Status DC Atorvastatin Calcium (Lipitor) 20 mg QHS PO Last administered on 08/06/17 19: 34; Start 07/24/17 at 21:00 Risperidone (RisperDAL) 0.75 mg DAILY PO Last administered on 08/06/17at 08:46; Start 07/26/17 at 09:00 Amoxicillin (Amoxil) 250 mg [id number] PO Last administered on 08/06/17at 08:45; Start 07/30/17 at 14:00; Stop 08/06/17 at 13:59; Status DC Lactobacillus Rhamnosus (Culturelle) 1 cap BID PO Last administered on at 19:34; Start 07/30/17 at 21:00; Stop 08/09/17 at 20:59 Melatonin 3 mg PRN QHS PRN PO INSOMNIA; Start 07/31/17 at 18:15; Stop 08/01/17 at 19:19; Status DC Melatonin 6 mg QHS PO Last administered on 08/06/17at 19:34; Start 08/01/17 at 19:45 Docusate Sodium (Colace) 100 mg BID PO Last administered on 08/06/17at 19:34; Start 08/03/17 at 21:00 Active Scripts Active Reported Trazodone Hcl 150 Mg Tablet 150 Mg PO PRN QHS PRN Trazodone Hcl 150 Mg Tablet 150 Mg PO QHS Risperdal (Risperidone) 0.5 Mg Tablet 0.75 Mg PO DAILY Klor-Con M20 (Potassium Chloride) 20 Meq Tab.er.prt 20 Meq PO DAILYWBKFT Zyprexa Zydis (Olanzapine) 5 Mg Tab.rapdis 5 Mg PO PRN Q2HR PRN Analgesic [place] (Methyl Salicylate/Menthol) 28 Gm Oint...g. 1 Aldair TP PRN QID PRN Melatonin 3 Mg Tablet 6 Mg PO QHS Mag-Al Plus Xs Suspension (Mag Hydrox/Al Hydrox/Simeth) 30 Ml Oral.susp 15 Ml PO PRN AFTMEALHC PRN Culturelle (Lactobacillus Rhamnosus Gg) 1 Each Capsule 1 Cap PO BID 3 Days Novolog Flexpen (Insulin Aspart) 100 Unit/1 Ml Insuln.pen 0-5 Unit SQ TIDBFRMEAL D3-50 (Cholecalciferol (Vitamin D3)) 50,000 Unit Capsule 50,000 Unit PO WEEKLY Atorvastatin Calcium 20 Mg Tablet 20 Mg PO QHS Amitriptyline Hcl 50 Mg Tablet 50 Mg PO QHS Seroquel (Quetiapine Fumarate) 25 Mg Tablet 12.5 Mg PO DAILY Robitussin Nighttime Cough Dm (Dextromethorphan Hb/Doxylamine) 237 Ml Liquid 10 Ml PO PRN Q6HRS PRN Levemir Flextouch (Insulin Detemir) 100 Unit/1 Ml Insuln.pen 10 Unit SQ HS Cosopt Eye Drops (Dorzolamide Hcl/Timolol Maleat) 10 Ml Drops 1 Ml OU BID Prednisolone Acetate 5 Ml Drops.susp 1 Ml OD DAILY Alprazolam 0.25 Mg Tablet 0.25 Mg PO BID PRN Systane 0.3-0.4% Eye Drops (Propylene Glycol/Peg 400) 15 Ml Drops 15 Ml OS PRN Hydrocodone-Apap 5-325 (Hydrocodone Bit/Acetaminophen) 1 Each Tablet 2 Tab PO PRN Q6HRS PRN Docusate Sodium 100 Mg Capsule 100 Mg PO PRN DAILY PRN Hydrocodone-Apap 5-325 (Hydrocodone Bit/Acetaminophen) 1 Each Tablet 1 Tab PO BID PRN Milk Of Magnesia (Magnesium Hydroxide) 400 Mg/5 Ml Oral.susp 2,400 Mg PO PRN DAILY PRN Bisacodyl 10 Mg Supp.rect 10 Mg RC PRN ALT PRN Simvastatin 10 Mg Tablet 10 Mg PO DAILY Namenda Xr (Memantine Hcl) 28 Mg Cap.spr.24 28 Mg PO DAILY Mirtazapine 15 Mg Tablet 7.5 Mg PO Mirtazapine 15 Mg Tablet 1 Tab PO QHS Metformin Hcl 500 Mg Tablet 500 Mg PO BIDWMEALS Lisinopril 40 Mg Tablet 40 Mg PO DAILY Glipizide 5 Mg Tablet 5 Mg PO BID Furosemide 20 Mg Tablet 20 Mg PO DAILY Donepezil Hcl 10 Mg Tablet 10 Mg PO DAILY Clonidine Hcl 0.2 Mg Tablet 0.2 Mg PO BID Citalopram Hbr (Citalopram Hydrobromide) 20 Mg Tablet 20 Mg PO DAILY Buspirone Hcl 10 Mg Tablet 10 Mg PO BID Aspirin Ec (Aspirin) 81 Mg Tablet. 81 Mg PO DAILY Amlodipine Besylate 10 Mg Tablet 10 Mg PO DAILY I have reviewed the current psychotropics carefully including drug interactions. Risk benefit ratio favors no change other than as noted in my dictated progress note. Diagnosis: Problems: (1) MDD (major depressive disorder) (2) Dementia with behavioral disturbance (3) Anxiety disorder (4) Impulse control disorder (5) Psychotic depression (6) Mild cognitive impairment HECTOR PLEITEZ MD Aug 06, 2017 20:44
[2017-08-07] MEDS: traZODone 100 MG TABLET. PO PRN (01:44)
[2017-08-07 06:04] VITALS: BP 152/83
[2017-08-07] MEDS: INSULIN ASPART 300 UNITS/3 ML INSULN.PEN SQ SCH ×2 (07:30→11:30)
[2017-08-07] MEDS: metFORMIN 500 MG TABLET PO SCH (08:31)
[2017-08-07] MEDS: DONEPEZIL HCL 10 MG TABLET PO SCH (08:31)
[2017-08-07] MEDS: busPIRone 10 MG TABLET. PO SCH (08:31)
[2017-08-07] MEDS: LACTOBACILLUS RHAMNOSUS GG 1 CAPSULE. PO SCH (08:31)
[2017-08-07] MEDS: ASPIRIN ENTERIC COATED 81 MG TABLET.DR. PO SCH (08:31)
[2017-08-07] MEDS: MEMANTINE 10 MG TABLET. PO SCH (08:31)
[2017-08-07] MEDS: glipiZIDE 5 MG TABLET PO SCH (08:31)
[2017-08-07] MEDS: POTASSIUM CHLORIDE 20 MEQ TABLET.ER. PO SCH (08:31)
[2017-08-07] MEDS: DOCUSATE SODIUM 100 MG CAPSULE PO SCH (08:32)
[2017-08-07] MEDS: FUROSEMIDE 20 MG TABLET PO SCH (08:32)
[2017-08-07] MEDS: cloNIDine HCL 0.2 MG TABLET PO SCH (08:32)
[2017-08-07] MEDS: CITALOPRAM 20 MG TABLET. PO SCH (08:32)
[2017-08-07] MEDS: amLODIPine BESYLATE 10 MG TABLET PO SCH (08:33)
[2017-08-07] MEDS: risperiDONE 0.5 MG TABLET. PO SCH (08:35)
[2017-08-07 08:36] VITALS: BP 152/83
[2017-08-07] MEDS: LISINOPRIL 20 MG TABLET PO SCH (08:36)
[2017-08-07] MEDS: DORZOLAMIDE/TIMOLOL 2%/0.5% OPHTH SOLUTION 10ML BOTTLE. OU SCH (08:45)
[2017-08-07] MEDS: prednisoLONE ACETATE 1% OPHTH SUSPENSION 5ML BOTTLE. OD SCH (08:45)
--- NOTE | 2017-08-07 19:47 | PN ---
DATE: 08/06/2017 This late entry 08/06/2017 covers elements not covered in my initial note 08/06/2017. Met with the patient in the evening of 08/06/2017. The patient has been somewhat more irritable, refused bedtime medications, withdraws to her room, but I did see her come out to the [facility] [place] the [place]. REVIEW OF SYSTEMS: No CV, , pulmonary, eye system symptoms on review. MENTAL STATUS EXAM: Oriented to herself and situation. Speech has some latency, coherent. Abstraction fair, computation impaired, language function intact, attention span short. Mood and affect overall improved, less paranoid, less depressed and anxious. LABORATORY DATA: Reviewed. IMPRESSION: Unchanged from initial note. PLAN: Continue current psychotropics. Transition to snf 319. MAN Yanira PLEITEZ MD DR: DINO/demetrio JOB#: [id number] / [id number]
--- NOTE | 2017-08-07 20:50 | PDOC ---
Exam Note: Barney Note: Please also refer to the separate dictated note~for this date of service dictated separately.~Patient seen individually. Discussed the patient with Nursing staff reviewed the chart.~Reviewed interim history and current functioning. Reviewed vital signs,~Labs/ Radiology~and current medications noted below. Continue current treatment with the changes noted in the dictated addendum note Assessment: Vital Signs: Vital Signs Date Time Temp Pulse Resp B/P (MAP) Pulse Ox O2 Delivery O2 Flow Rate FiO2 08/07/17 08:36 82 152/83 08/07/17 06:04 97.2 18 Room Air 08/06/17 15:58 96 I&O Intake and Output 08/07/17 07:00 Intake Total 1440 ml Balance 1440 ml Intake Oral 1440 ml Labs: Laboratory Tests Test 08/07/17 07:17 08/07/17 11:42 Glucose (Fingerstick) 95 mg/dL (70-99) 91 mg/dL (70-99) Current Medications: Meds: Current Medications Lorazepam (Ativan) 0.5 mg 1X ONCE IV ; Start 07/19/17 at 21:00; Stop 07/19/17 at 21:00; Status DC Lorazepam (Ativan) 1 mg 1X ONCE PO Last administered on 07/19/17at 21:06; Start 07/19/17 at 21:00; Stop 07/19/17 at 21:04; Status DC Multi-Ingredient Ointment (Analgesic [place]) 1 aldair PRN QID PRN TP MUSCLE PAIN; Start 07/19/17 at 21:45; Stop 08/07/17 at 12:53; Status DC Al Hydroxide/Mg Hydroxide (Mylanta Plus Xs) 15 ml PRN AFTMEALHC PRN PO DYSPEPSIA; Start 07/19/17 at 21:45; Stop 08/07/17 at 12:53; Status DC Magnesium Hydroxide (Milk Of Magnesia) 2,400 mg PRN QHS PRN PO CONSTIPATION; Start 07/19/17 at 21:45; Stop 08/07/17 at 12:53; Status DC Olanzapine (ZyPREXA ZYDIS) 2.5 mg PRN Q2HR PRN PO PSYCHOSIS Last administered on 07/22/17at 20:45; Start 07/19/17 at 22:00; Stop 07/22/17 at 21:34; Status DC Alprazolam (Xanax) 0.25 mg PRN BID PRN PO ANXIETY / AGITATION Last administered on 07/22/17 20:45; Start 07/19/17 at 22:30; Stop 08/07/17 at 12:53 ; Status DC Buspirone HCl (Buspar) 10 mg BID PO Last administered on 08/07/17 08:31; Start 07/20/17 at 09:00; Stop 08/07/17 at 12:53; Status DC Citalopram Hydrobromide (CeleXA) 20 mg DAILY PO Last administered on 08/07/17 08:32; Start 07/20/17 at 09:00; Stop 08/07/17 at 12:53; Status DC Donepezil HCl (Aricept) 10 mg DAILY PO Last administered on 08/07/17 08:31; Start 07/20/17 at 09:00; Stop 08/07/17 at 12:53; Status DC Mirtazapine (Remeron) 15 mg QHS PO Last administered on 07/21/17 19:55; Start 07/20/17 at 21:00; Stop 07/22/17 at 21:34; Status DC Memantine (Namenda) 10 mg BID PO Last administered on 08/07/17 08:31; Start at 09:00; Stop 08/07/17 at 12:53; Status DC Amlodipine Besylate (Norvasc) 10 mg DAILY PO Last administered on 08/07/17at 08: 33; Start 07/20/17 at 09:00; Stop 08/07/17 at 12:53; Status DC Aspirin (Aspirin Enteric Coated) 81 mg DAILY PO Last administered on 08/07/17 08:31; Start 07/20/17 at 09:00; Stop 08/07/17 at 12:53; Status DC Bisacodyl (Dulcolax Supp) 10 mg PRN ALT PRN RC CONSTIPATION; Start 07/20/17 at 07:15; Stop 08/07/17 at 12:53; Status DC Clonidine HCl (Catapres) 0.2 mg BID PO Last administered on 08/07/17at 08:32; Start 07/20/17 at 09:00; Stop 08/07/17 at 12:53; Status DC Docusate Sodium (Colace) 100 mg PRN DAILY PRN PO CONSTIPATION; Start 07/20/17 at 07:15; Stop 08/07/17 at 12:53; Status DC Dorzolamide/ Timolol (Cosopt) 1 drop BID OU Last administered on 08/07/17at 08: 45; Start 07/20/17 at 09:00; Stop 08/07/17 at 12:53; Status DC Furosemide (Lasix) 20 mg DAILY PO Last administered on 08/07/17at 08:32; Start 07/20/17 at 09:00; Stop 08/07/17 at 12:53; Status DC Glipizide (Glucotrol) 5 mg BID PO Last administered on 08/07/17at 08:31; Start 07/20/17 at 09:00; Stop 08/07/17 at 12:53; Status DC Acetaminophen/ Hydrocodone Bitart (Lortab 5/325) 1 tab PRN BID PRN PO PAIN Last administered on 07/26/17at 01:23; Start 07/20/17 at 07:15; Stop 08/07/17 at 12 :53; Status DC Insulin Detemir (Levemir) 10 units HS SQ Last administered on 08/06/17at 19:36; Start 07/20/17 at 21:00; Stop 08/07/17 at 12:53; Status DC Magnesium Hydroxide (Milk Of Magnesia) 400 mg PRN DAILY PRN PO CONSTIPATION; Start 07/20/17 at 07:15; Stop 07/21/17 at 02:10; Status DC Metformin HCl (Glucophage) 500 mg BIDWMEALS PO Last administered on 08/07/17at 08:31; Start 07/20/17 at 08:00; Stop 08/07/17 at 12:53; Status DC Prednisolone Acetate (Pred Forte) 1 drop DAILY OD Last administered on at 08:45; Start 07/20/17 at 09:00; Stop 08/07/17 at 12:53; Status DC Simvastatin (Zocor) 10 mg QHS PO Last administered on 07/20/17at 19:38; Start 07/20/17 at 21:00; Stop 07/21/17 at 17:31; Status DC Non-Formulary Medication 10 ml PRN Q6HRS PRN PO COUGH; Start 07/20/17 at 07:15; Stop 07/20/17 at 08:02; Status DC Lisinopril (Prinivil) 40 mg DAILY PO Last administered on 08/07/17at 08:36; Start 07/20/17 at 09:00; Stop 08/07/17 at 12:53; Status DC Insulin Aspart (NovoLOG) 0-5 UNITS TIDBFRMEAL SQ Last administered on at 17:26; Start 07/20/17 at 07:30; Stop 08/07/17 at 12:53; Status DC Dextrose 12.5 gm PRN Q15MIN PRN IV SEE COMMENTS; Start 07/20/17 at 07:30; Stop 08/07/17 at 12:53; Status DC Lorazepam (Ativan) 1 mg STK-MED ONCE .ROUTE ; Start 07/19/17 at 21:04; Stop 07/20 at 08:44; Status DC Acetaminophen (Tylenol) 650 mg PRN Q6HRS PRN PO PAIN / TEMP; Start 07/20/17 at 17:15; Stop 07/20/17 at 17:15; Status DC Multi-Ingredient Ointment (Analgesic [place]) 1 aldair PRN QID PRN TP MUSCLE PAIN; Start 07/20/17 at 17:15; Stop 07/20/17 at 17:15; Status DC Al Hydroxide/Mg Hydroxide (Mylanta Plus Xs) 15 ml PRN AFTMEALHC PRN PO DYSPEPSIA; Start 07/20/17 at 17:15; Stop 07/20/17 at 17:15; Status DC Magnesium Hydroxide (Milk Of Magnesia) 2,400 mg PRN QHS PRN PO CONSTIPATION; Start 07/20/17 at 17:15; Stop 07/20/17 at 17:15; Status DC Trazodone HCl (Desyrel) 50 mg QHS PO Last administered on 07/20/17at 19:38; Start 07/20/17 at 21:00; Stop 07/21/17 at 18:48; Status DC Trazodone HCl (Desyrel) 50 mg PRN QHS PRN PO INSOMNIA Last administered on at 00:47; Start 07/20/17 at 21:00; Stop 07/21/17 at 18:48; Status DC Vitamin D (Vitamin D3) 50,000 unit WEEKLY PO Last administered on 08/03/17at 08: 10; Start 07/20/17 at 20:00; Stop 08/07/17 at 12:53; Status DC Atorvastatin Calcium (Lipitor) 20 mg QHS PO ; Start 07/20/17 at 21:00; Stop at 21:00; Status DC Atorvastatin Calcium (Lipitor) 10 mg QHS PO Last administered on 07/23/17at 19:37 ; Start 07/21/17 at 21:00; Stop 07/24/17 at 14:27; Status DC Trazodone HCl (Desyrel) 100 mg PRN QHS PRN PO INSOMNIA Last administered on 07/23at 00:33; Start 07/21/17 at 19:00; Stop 07/23/17 at 18:46; Status DC Trazodone HCl (Desyrel) 100 mg QHS PO Last administered on 07/21/17at 19:58; Start 07/21/17 at 21:00; Stop 07/23/17 at 18:46; Status DC Mirtazapine (Remeron) 15 mg QHS PO ; Start 07/21/17 at 21:00; Stop 07/21/17 at 21: 00; Status DC Olanzapine (ZyPREXA ZYDIS) 5 mg PRN Q2HR PRN PO PSYCHOSIS Last administered on 07/22/17at 22:06; Start 07/22/17 at 21:45; Stop 08/07/17 at 12:53; Status DC Amitriptyline HCl (Elavil) 50 mg QHS PO ; Start 07/23/17 at 21:00; Stop 07/23/17 at 21:00; Status DC Amitriptyline HCl (Elavil) 50 mg QHS PO Last administered on 08/06/17at 19:34; Start 07/22/17 at 22:00; Stop 08/07/17 at 12:53; Status DC Risperidone (RisperDAL) 0.5 mg DAILY PO Last administered on 07/25/17at 08:24; Start 07/24/17 at 09:00; Stop 07/25/17 at 18:07; Status DC Risperidone (RisperDAL) 0.5 mg ONCE ONCE PO Last administered on 07/23/17at 17: 37; Start 07/23/17 at 16:30; Stop 07/23/17 at 16:42; Status DC Trazodone HCl (Desyrel) 150 mg PRN QHS PRN PO INSOMNIA Last administered on at 01:44; Start 07/23/17 at 18:45; Stop 08/07/17 at 12:53; Status DC Trazodone HCl (Desyrel) 150 mg QHS PO Last administered on 08/06/17at 19:34; Start 07/23/17 at 21:00; Stop 08/07/17 at 12:53; Status DC Potassium Chloride (Klor-Con) 20 meq DAILYWBKFT PO Last administered on at 08:31; Start 07/25/17 at 08:00; Stop 08/07/17 at 12:53; Status DC Potassium Chloride (Klor-Con) 20 meq 1X ONCE PO Last administered on 07/24/17at 14:33; Start 07/24/17 at 14:30; Stop 07/24/17 at 14:31; Status DC Atorvastatin Calcium (Lipitor) 20 mg QHS PO Last administered on 08/06/17at 19: 34; Start 07/24/17 at 21:00; Stop 08/07/17 at 12:53; Status DC Risperidone (RisperDAL) 0.75 mg DAILY PO Last administered on 08/07/17at 08:35; Start 07/26/17 at 09:00; Stop 08/07/17 at 12:53; Status DC Amoxicillin (Amoxil) 250 mg [id number] PO Last administered on 08/06/17at 08:45; Start 07/30/17 at 14:00; Stop 08/06/17 at 13:59; Status DC Lactobacillus Rhamnosus (Culturelle) 1 cap BID PO Last administered on at 08:31; Start 07/30/17 at 21:00; Stop 08/07/17 at 12:53; Status DC Melatonin 3 mg PRN QHS PRN PO INSOMNIA; Start 07/31/17 at 18:15; Stop 08/01/17 at 19:19; Status DC Melatonin 6 mg QHS PO Last administered on 08/06/17at 19:34; Start 08/01/17 at 19:45; Stop 08/07/17 at 12:53; Status DC Docusate Sodium (Colace) 100 mg BID PO Last administered on 08/07/17at 08:32; Start 08/03/17 at 21:00; Stop 08/07/17 at 12:53; Status DC Active Scripts Active Reported Trazodone Hcl 150 Mg Tablet 150 Mg PO PRN QHS PRN Trazodone Hcl 150 Mg Tablet 150 Mg PO QHS Risperdal (Risperidone) 0.5 Mg Tablet 0.75 Mg PO DAILY Klor-Con M20 (Potassium Chloride) 20 Meq Tab.er.prt 20 Meq PO DAILYWBKFT Zyprexa Zydis (Olanzapine) 5 Mg Tab.rapdis 5 Mg PO PRN Q2HR PRN MDD 20mg Analgesic [place] (Methyl Salicylate/Menthol) 28 Gm Oint...g. 1 Aldair TP PRN QID PRN Melatonin 3 Mg Tablet 6 Mg PO QHS Mag-Al Plus Xs Suspension (Mag Hydrox/Al Hydrox/Simeth) 30 Ml Oral.susp 15 Ml PO PRN AFTMEALHC PRN Culturelle (Lactobacillus Rhamnosus Gg) 1 Each Capsule 1 Cap PO BID 3 Days Novolog Flexpen (Insulin Aspart) 100 Unit/1 Ml Insuln.pen 0-10 Unit SQ TIDBFRMEAL D3-50 (Cholecalciferol (Vitamin D3)) 50,000 Unit Capsule 50,000 Unit PO WEEKLY Atorvastatin Calcium 20 Mg Tablet 20 Mg PO QHS Amitriptyline Hcl 50 Mg Tablet 50 Mg PO QHS Levemir Flextouch (Insulin Detemir) 100 Unit/1 Ml Insuln.pen 10 Unit SQ HS Cosopt Eye Drops (Dorzolamide Hcl/Timolol Maleat) 10 Ml Drops 1 Drop OU BID Prednisolone Acetate 5 Ml Drops.susp 1 Drop OD DAILY Alprazolam 0.25 Mg Tablet 0.25 Mg PO BID PRN Docusate Sodium 100 Mg Capsule 100 Mg PO BID Hydrocodone-Apap 5-325 (Hydrocodone Bit/Acetaminophen) 1 Each Tablet 1 Tab PO PRN BID PRN Milk Of Magnesia (Magnesium Hydroxide) 400 Mg/5 Ml Oral.susp 2,400 Mg PO PRN QHS PRN Bisacodyl 10 Mg Supp.rect 10 Mg RC PRN ALT PRN Namenda Xr (Memantine Hcl) 28 Mg Cap.spr.24 28 Mg PO DAILY Metformin Hcl 500 Mg Tablet 500 Mg PO BIDWMEALS Lisinopril 40 Mg Tablet 40 Mg PO DAILY Glipizide 5 Mg Tablet 5 Mg PO BID Furosemide 20 Mg Tablet 20 Mg PO DAILY Donepezil Hcl 10 Mg Tablet 10 Mg PO DAILY Clonidine Hcl 0.2 Mg Tablet 0.2 Mg PO BID Citalopram Hbr (Citalopram Hydrobromide) 20 Mg Tablet 20 Mg PO DAILY Buspirone Hcl 10 Mg Tablet 10 Mg PO BID Aspirin Ec (Aspirin) 81 Mg Tablet.dr 81 Mg PO DAILY Amlodipine Besylate 10 Mg Tablet 10 Mg PO DAILY I have reviewed the current psychotropics carefully including drug interactions. Risk benefit ratio favors no change other than as noted in my dictated progress note. Diagnosis: Problems: (1) Anxiety disorder (2) Impulse control disorder (3) Psychotic depression (4) Mild cognitive impairment HECTOR PLEITEZ MD Aug 07, 2017 20:50
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
== END 2017-08-07 12:20 | disposition home or self-care (01) | DRG 885 ==
LOC: ER 17:16 → EDBD 17:16 → GEROPSY 21:17
PROVIDERS: ADMIT Psychiatry & Neurology Psychiatry; ATTEND Psychiatry & Neurology Psychiatry
DX: F32.3 Major depressive disorder, single episode, severe with psychotic features (principal); F01.51 Vascular dementia, unspecified severity, with behavioral disturbance; G30.9 Alzheimer's disease, unspecified; F02.81 Dementia in other diseases classified elsewhere, unspecified severity, with behavioral disturbance; N39.0 Urinary tract infection, site not specified; E11.9 Type 2 diabetes mellitus without complications; E55.9 Vitamin D deficiency, unspecified; F09 Unspecified mental disorder due to known physiological condition; F41.9 Anxiety disorder, unspecified; F63.9 Impulse disorder, unspecified; Z66 Do not resuscitate; I10 Essential (primary) hypertension; G47.00 Insomnia, unspecified; Z86.73 Personal history of transient ischemic attack (TIA), and cerebral infarction without residual deficits; Z79.899 Other long term (current) drug therapy; Z87.81 Personal history of (healed) traumatic fracture
CPT/HCPCS: 36415; 80053; 80061; 81001; 82306; 82607; 82947; 83036; 83540; 83550; 83735; 84436; 84443; 84480; 85025; 86593; 87086; 93005; J1815; 97530; 99285-25